=== PATIENT | female | born 1995 | race African-American/Black ===

== ENCOUNTER 2020-05-29 10:17 | Emergency (ER) | payer OTHER, SELFPAY ==
--- NOTE | 2020-05-29 10:28 | ED.URI ---
HPI - URI/Sore Throat General Chief Complaint: Upper Respiratory Infection Stated Complaint: Earache/sore throat Time Seen by Provider: 05/29/20 10:28 Source: patient and RN notes reviewed Mode of arrival: ambulatory Limitations: no limitations History of Present Illness HPI Narrative: 25-year-old female presents with concern for sore throat, bilateral ear pain for 4 days. She reports body aches, denies fever, chills, sweats, headache, cough, shortness of breath, rhinorrhea, postnasal drainage. Reports her sister had strep throat 2 weeks ago, she does not live with her sister. Reports she has been taking TheraFlu and NyQuil with little relief MD elicited complaint: sore throat Related Data Allergies Allergy/AdvReac Type Severity Reaction Status Date / Time No Known Allergies Allergy Verified 05/29/20 10:28 Review of Systems Review of Systems: Narrative: CONSTITUTIONAL: Denies malaise, chills, sweats, or fever. EYES: Denies visual changes, redness, or discharge. ENT: Denies any rhinorrhea, congestion, sinus pain. Reports otalgia and sore throat. CARDIOVASCULAR: Denies chest pain, palpitations, or edema. RESPIRATORY: Denies cough or dyspnea. GASTROINTESTINAL: Denies abdominal pain, nausea, vomiting, diarrhea SKIN: Denies rash or itching. MUSCULOSKELETAL: Reports myalgia. NEUROLOGIC: Denies headache. All systems reviewed & are unremarkable except as noted in HPI and below PMFSH Comments At time of signature, agree with nursing past medical, surgical, social and family history. There is no relevant family history pertinent to the presenting complaint Exam Narrative: Exam Narrative: GENERAL: Well-appearing, well-nourished, and in no acute distress. HEAD: Normocephalic EYES: PERRLA, conjunctivae clear ENT: Nares clear, turbinates pink, no discharge. Mucous membranes moist. TM pearly barrios with sharp light reflex bilaterally; no tragal tenderness. Oropharynx erythematous without lesions. Tonsils enlarged and without exudate, no drooling, no hoarseness, no trismus, uvula midline. NECK: Supple. No lymphadenopathy CHEST: Clear to auscultation, breath sounds equal. No wheezing, rhonchi, rales, or stridor. No respiratory distress, speaks in full sentences. HEART: Regular rate and rhythm. No murmur heard. SKIN: Warm, dry, no rash. NEURO: Alert and oriented x3. PSYCH: Normal mood and affect Course Course Emergency Course: Patient is aware of diagnosis, understands and agrees to treatment plan. Anticipatory guidance given. Patient agrees to follow-up as directed and is aware of reasons to seek care at the emergency department. Portions of this record may have been created with voice recognition software Vital Signs Vital signs: Vital Signs Temperature 96.9 F L 05/29/20 10:30 Pulse Rate 93 05/29/20 10:30 Respiratory Rate 20 05/29/20 10:30 Blood Pressure 163/94 H 05/29/20 10:30 Pulse Oximetry 99 05/29/20 10:30 Temperature 96.9 F L 05/29/20 10:30 Pulse Rate 93 05/29/20 10:30 Respiratory Rate 20 05/29/20 10:30 Blood Pressure 163/94 H 05/29/20 10:30 Pulse Oximetry 99 05/29/20 10:30 Reviewed. Patient has been instructed to follow up with her primary care provider within the next week regarding her elevated blood pressure today. MDM - URI/Sore Throat MDM Narrative Medical decision making narrative: Differential diagnosis considered: Colon virus, strep pharyngitis, allergic rhinitis, upper respiratory tract infection, sinusitis, rhinosinusitis, nasopharyngitis. viral pharyngitis, otitis media, otitis externa, pneumonia, bronchitis, viral cough syndrome, viral syndrome, and influenza. Exam findings show no acute concerns or changes; patient is non-toxic appearing and is in no distress. Patient is appropriate for outpatient treatment and follow-up. Lab Data Attestation: I reviewed the patient's lab results. Labs: Strep Screen Presumptive Negative *(Referenc
[2020-05-29 10:30] VITALS: BP 163/94; PULSE 93; RESP 20; TEMP 36.1; O2SAT 99
== END 2020-05-29 10:51 | disposition home or self-care (01) ==
PROVIDERS: Emergency Provider Nurse Practitioner
DX: J02.0 Streptococcal pharyngitis (principal)
CPT/HCPCS: 87077; 87081; 87635; 87880; 99213; C9803; G0463; U0003

== ENCOUNTER 2020-05-29 10:50 | Outpatient (NON) | payer OTHER, SELFPAY ==
[2020-05-31 00:27] LABS: SARS-CoV-2 RNA PCR Negative
== END 2020-05-29 10:51 ==
LOC: ANHCOVIDDT 10:51
PROVIDERS: Visit Provider Nurse Practitioner
DX: J02.9 Acute pharyngitis, unspecified (principal); Z20.828 Contact with and (suspected) exposure to other viral communicable diseases
CPT/HCPCS: 87635; C9803; U0003

== ENCOUNTER 2021-04-19 08:27 | Emergency (ER) | payer OTHER, SELFPAY ==
--- NOTE | ~2021-04-19 | XR_ITS ---
EXAMINATION: XR shoulder RT min 2V EXAM DATE: 04/19/2021 09:14 INDICATION: Fell out of chair 2 days ago ttp anterior aspect. Initial encounter. TECHNIQUE: The following right shoulder projections obtained: frontal projection with internal rotati on, frontal projection with external rotation, Grashey, and scapular Y view (4+ views). There is no prior study for comparison. FINDINGS: No evidence of right shoulder rotator cuff calcific tendinosis. Unremarkable right liz ohumeral and acromioclavicular joints. There are no acute fractures or dislocations identified. Ther e is no subcutaneous gas. The soft tissue is unremarkable. There are no radiopaque foreign bodies. IMPRESSION: 1. Right shoulder exam without acute osseous findings. Reviewed, dictated and finalized at location A.
--- NOTE | ~2021-04-19 | XR_ITS ---
EXAMINATION: XR elbow RT min 3V EXAM DATE: 04/19/2021 09:14 INDICATION: fall out of chair 2 days ago ttp on ulnar aspect. Initial encounter. TECHNIQUE: Right elbow frontal, lateral with flexion, and oblique projections obtained and reviewed. There is no prior study for comparison. FINDINGS: Right elbow anterior humeral line intact. There are no acute fractures or dislocations coral ntified. There is no subcutaneous gas. The soft tissue is unremarkable. There are no radiopaque f oreign bodies. IMPRESSION: 1. Right elbow exam without acute osseous findings. Reviewed, dictated and finalized at location A.
[2021-04-19 08:42] VITALS: BP 117/78; PULSE 80; RESP 18; TEMP 36.8; O2SAT 100
--- NOTE | 2021-04-19 09:21 | WC.ED.TRAUMA ---
HPI - Trauma General Chief Complaint: Extremity Injury, Upper Stated Complaint: right arm pain Time Seen by Provider: 04/19/21 08:39 Source: patient History of Present Illness HPI narrative: Patient reports she fell of her chair approximately 2 days ago onto her right arm. She had mild pain in her forearm but just monitor her symptoms. Yesterday she went bowling and now she is having pain radiating up her arm she was concerned so came to the ER for evaluation. Her pain is described as a stretching sensation is primarily starts in her forearm and radiates up into her shoulder. She denies any numbness or tingling. She denies any swelling or erythema. Her pain does worsen when she utilizes her elbow or right shoulder. Related Data Allergies Allergy/AdvReac Type Severity Reaction Status Date / Time No Known Allergies Allergy Verified 04/19/21 08:46 Review of Systems Review of Systems: CONSTITUTIONAL: Denies fever, chills, or sweats. EYES: Denies visual changes, redness, or discharge. ENT: Denies rhinorrhea, congestion, sore throat, or otalgia. CARDIOVASCULAR: Denies chest pain, palpitations, or edema. RESPIRATORY: Denies cough or dyspnea. GASTROINTESTINAL: Denies abdominal pain, nausea, vomiting, or diarrhea. GENITOURINARY: Denies dysuria or hematuria. SKIN: Denies rash or itching. MUSCULOSKELETAL: Denies back pain, joint pain, or myalgia. NEUROLOGIC: Denies headache, numbness, dizziness, or weakness. PSYCHIATRIC: Denies anxiety or depression. All systems reviewed & are unremarkable except as noted in HPI and below PMFSH Past Medical History Medical History (Updated 04/19/21 @ 09:32 by Rachid Pierre MD) Patient denies significant medical history Social History Social History (Updated 04/19/21 @ 09:22 by Rachid Pierre MD) Alcohol intake: current Exam Narrative: GENERAL: Well-appearing, well-nourished, and in no acute distress. HEAD: Normocephalic, atraumatic. EYES: PERRLA and EOMI. ENT: Nares clear, no rhinorrhea or epistaxis. Mucous membranes moist. NECK: Supple. No masses. No JVD EXTREMITIES: Normal range of motion. No edema. Mild tenderness noted on the anterior aspect of the shoulder no focal bony tenderness no obvious deformity no specific tenderness at the AC joint there is also mild tenderness on the ulnar aspect of the right elbow again no edema no erythema no obvious deformity no focal bony tenderness. Pain is primarily on the biceps tendon SKIN: Warm, dry, no rash. NEURO: No focal deficits. Alert and oriented x3. PSYCH: Normal mood and affect. Course Vital Signs Vital signs: Vital Signs Temperature 36.8 C 04/19/21 08:42 Pulse Rate 80 04/19/21 08:42 Respiratory Rate 18 04/19/21 08:42 Blood Pressure 117/78 04/19/21 08:42 Pulse Oximetry 100 04/19/21 08:42 Temperature 36.8 C 04/19/21 08:42 Pulse Rate 80 04/19/21 08:42 Respiratory Rate 18 04/19/21 08:42 Blood Pressure 117/78 04/19/21 08:42 Pulse Oximetry 100 04/19/21 08:42 MDM - Trauma MDM Narrative Medical decision making narrative: H&P as above, vss, pt looks clinically well, exam without neurovascular compromise, imaging clinically unremarkable, additional labs/img considered, symptomatic relief available as needed, on reevaluation pt continues to looks clinically well. Suspect soft tissue strain, dns fracture, dislocation, major neurovascular compromise. plan to tx/monitor as op w/ pcm f/u findings/plan discussed with pt, pt agree/comfortable with plan, return precautions given Imaging Data Radiologist's impression: Impressions Elbow X-Ray 04/19/21 09:18 IMPRESSION: 1. Right elbow exam without acute osseous findings. Shoulder X-Ray 04/19/21 09:21 IMPRESSION: 1. Right shoulder exam without acute osseous findings. Discharge Plan Discharge Clinical Impression: Biceps muscle strain Qualifiers: Encounter type: initial encounter Laterality: right Qualified Code(
== END 2021-04-19 09:53 | disposition home or self-care (01) ==
PROVIDERS: Emergency Provider Emergency Medicine
DX: S46.211A Strain of muscle, fascia and tendon of other parts of biceps, right arm, initial encounter (principal); Y93.54 Activity, bowling; X50.9XXA Other and unspecified overexertion or strenuous movements or postures, initial encounter
CPT/HCPCS: 73030; 73080; 99283; A4565

== ENCOUNTER 2021-05-23 15:48 | Outpatient (CLI) | payer OTHER, SELFPAY ==
--- NOTE | ~2021-05-23 | US_ITS ---
EXAMINATION: US thyroid DATE: 05/23/2021 16:23 INDICATION: Nontoxic goiter. TECHNIQUE: Multiple ultrasound images of the thyroid were obtained. COMPARISON: None. FINDINGS: The right thyroid lobe measures 6.6 x 1.7 x 2.0 cm. The left thyroid lobe measures 6.0 x 1.5 x 2.1 c m. There is normal echotexture and echogenicity throughout the thyroid gland. No discrete nodules id entified. Normal vascular flow is present. IMPRESSION: 1. Normal thyroid. Reviewed, dictated and finalized at location A. E ATTENDANT IMPRESSION: 1. Normal thyroid.
== END 2021-05-23 15:49 | disposition home or self-care (01) ==
LOC: ANHIMG 15:52
PROVIDERS: PCP Physician Assistant; Visit Provider Physician Assistant
DX: E04.9 Nontoxic goiter, unspecified (principal)
CPT/HCPCS: 76536

== ENCOUNTER 2021-09-12 10:48 | Observation (INO) | payer OTHER, SELFPAY ==
--- NOTE | 2021-09-12 10:48 | OBADM ---
This patient, Natan Milan, admitted to the OB room OB Post 116 for observation. Patient/family oriented to hospital policies and general routines including ID bracelet, bed and alarms, visiting hours, pain management, procedures, bathroom and other care routines, personal items, smoking policy, room service/diet, and visiting hours. Patient/Family are encouraged to report perceived risks to care and to ask questions if they do not understand what they are told or what they should do.
[2021-09-12 11:10] VITALS: RESP 18; TEMP 36.6
[2021-09-12 11:11] VITALS: BP 131/75; PULSE 99
[2021-09-12 11:15] VITALS: BMI 40.2
[2021-09-12 11:31] VITALS: BP 97/57; PULSE 93
[2021-09-12 11:40] LABS: Add Urine Microscopic? YES; Appearance Urine Clear (Clear); Bilirubin Urine Negative (Negative); Blood Urine Negative (Negative); Color Urine Straw (Yellow); Glucose Urine UA Negative (Negative); Ketones Urine Negative (Negative); Leukocyte Esterase Ur Trace LEU/UL (Negative); Nitrate Urine Negative (Negative); Protein Urine Negative (Negative); RBC Urine 0-2 /hpf (0-2); Specific Grav Ur 1.011 (1.001-1.035); Squamous Epithelial Cell Urine Rare /hpf (Few); Urobilinogen Urine Negative mg/dL (<2.0); WBC Urine 0-3 /hpf
--- NOTE | 2021-10-07 10:18 | PM.OBTRLD ---
OB - Triage/Final Diagnosis Visit Information Comments/Additional reasons for admission: I have assessed the risk for this patient, Natan Milan, and determined that she would benefit from observation care. Evaluation Laboratory results: Laboratory Tests 09/12/21 11:25 Urine Color Straw Urine Appearance Clear Urine pH 7.0 Ur Specific [place] 1.011 Urine Protein Negative Urine Glucose (UA) Negative Urine Ketones Negative Ur Blood (Man) Negative Urine Nitrate Negative Urine Bilirubin Negative Urine Urobilinogen Negative Leukocyte Esterase Rfl Trace H Urine RBC 0-2 Urine WBC 0-3 Ur Squamous Epith Cells Rare Final Diagnosis (1) Spotting: Code(s): N92.0 - Excessive and frequent menstruation with regular cycle Status: Acute
== END 2021-09-12 12:02 | disposition home or self-care (01) ==
PROVIDERS: Admitting Provider Obstetrics & Gynecology; PCP Physician Assistant; Visit Provider Obstetrics & Gynecology
DX: O26.852 Spotting complicating pregnancy, second trimester (principal); Z3A.21 21 weeks gestation of pregnancy
CPT/HCPCS: 81001; G0378; G0379

== ENCOUNTER 2021-10-28 12:42 | Observation (INO) | payer OTHER, SELFPAY ==
[2021-10-28 13:01] VITALS: BP 133/76; PULSE 98
[2021-10-28 13:02] VITALS: TEMP 36.4; BMI 40.3
--- NOTE | 2021-10-28 13:02 | OBADM ---
This patient, Natan Milan, admitted to the OB room 112 for observation for possible contractions due to shortened cervical length. Patient/family oriented to hospital policies and general routines including ID bracelet, bed and alarms, visiting hours, pain management, procedures, bathroom and other care routines, personal items, smoking policy, room service/diet, and visiting hours. Patient/Family are encouraged to report perceived risks to care and to ask questions if they do not understand what they are told or what they should do.
[2021-10-28 14:01] VITALS: BP 122/77; PULSE 86
[2021-10-28] MEDS: BETAMETHASONE SOD PHOS/ACETATE 30 MG/5 ML VIAL 12 MG IM (14:08)
[2021-10-28 15:01] VITALS: BP 133/63; PULSE 90
--- NOTE | 2021-10-28 15:29 | PC.NURSE ---
Dr. Quintanilla informed pt has only had 1 contraction with possibly 1-2 instances of uterine irritability. FHT's reactive and [place] was given. Order received to repeat SVE and may discharge to home on pelvic rest, to be seen in office next week, and office has scheduled an appointment with M for pt and office will be calling her to inform her of the appointment.
--- NOTE | 2021-11-04 07:43 | PM.OBTRLD ---
OB - Triage/Final Diagnosis Visit Information Comments/Additional reasons for admission: I have assessed the risk for this patient, Natan Milan, and determined that she would benefit from observation care. Final Diagnosis (1) Cervical shortening affecting : Code(s): O26.879 - Cervical shortening, unspecified trimester Status: Acute
== END 2021-10-28 17:03 | disposition home or self-care (01) ==
PROVIDERS: Admitting Provider Obstetrics & Gynecology; PCP Physician Assistant; Visit Provider Obstetrics & Gynecology
DX: O26.879 Cervical shortening, unspecified trimester (principal); Z3A.00 Weeks of gestation of pregnancy not specified
CPT/HCPCS: 96372; G0378; G0379; J0702

== ENCOUNTER 2021-10-29 13:56 | Outpatient (CLI) | payer OTHER, SELFPAY ==
[2021-10-29] MEDS: BETAMETHASONE SOD PHOS/ACETATE 30 MG/5 ML VIAL 12 MG IM (14:18)
== END 2021-10-29 13:57 | disposition home or self-care (01) ==
LOC: ANHOBOP 14:06
PROVIDERS: PCP Physician Assistant; Visit Provider Obstetrics & Gynecology
DX: O36.0990 Maternal care for other rhesus isoimmunization, unspecified trimester, not applicable or unspecified (principal); Z3A.00 Weeks of gestation of pregnancy not specified
CPT/HCPCS: 96372; J0702

== ENCOUNTER 2021-11-04 13:13 | Outpatient (NON) | payer OTHER, SELFPAY ==
[2021-11-04 14:29] LABS: Fetal Fibronectin Positive
== END 2021-11-04 13:14 | disposition home or self-care (01) ==
LOC: ANHLAB 13:15
PROVIDERS: PCP Physician Assistant; Visit Provider Obstetrics & Gynecology
DX: O26.879 Cervical shortening, unspecified trimester (principal); Z3A.00 Weeks of gestation of pregnancy not specified
CPT/HCPCS: 82731

== ENCOUNTER 2021-11-11 08:43 | Observation (INO) | payer OTHER, SELFPAY ==
[2021-11-11 08:46] VITALS: BP 146/74; PULSE 110; RESP 18; TEMP 36.4; O2SAT 100
--- NOTE | 2021-11-11 09:23 | ED.BACK ---
HPI - Back Pain/Injury General Chief Complaint: Fall Stated Complaint: fall Time Seen by Provider: 11/11/21 08:46 History of Present Illness HPI Narrative: 26-year-old 30-weeks female presents to the emergency room for evaluation of lower back pain following a fall yesterday. Patient states that she was walking in the grass, when she slipped and fell landing on her left glute. Patient was ambulatory following the event. On presentation to the ER, patient is complaining of right lower back pain that is worse with rotational and lateral movement. Denies any radicular symptoms. No changes to bowel or bladder habits. Denies abdominal pain, and denies vaginal bleeding. Related Data Home Medications Medication Instructions Recorded Confirmed calcium carbonate 200 mg calcium 200 mg PO QID PRN Heartburn 10/28/21 10/28/21 (500 mg) chewable tablet (Tums) vit no.95-ferrous 1 tablet PO DAILY 10/28/21 10/28/21 fumarate 28 mg-folic acid 800 mcg tablet () Allergies Allergy/AdvReac Type Severity Reaction Status Date / Time No Known Allergies Allergy Verified 09/12/21 11:52 Review of Systems Review of Systems: CONSTITUTIONAL: Denies fever, chills, or sweats. EYES: Denies visual changes, redness, or discharge. ENT: Denies rhinorrhea, congestion, sore throat, or otalgia. CARDIOVASCULAR: Denies chest pain, palpitations, or edema. RESPIRATORY: Denies cough or dyspnea. GASTROINTESTINAL: Denies abdominal pain, nausea, vomiting, or diarrhea. GENITOURINARY: Denies dysuria or hematuria. SKIN: Denies rash or itching. MUSCULOSKELETAL: Reports low back pain NEUROLOGIC: Denies headache, numbness, dizziness, or weakness. PSYCHIATRIC: Denies anxiety or depression. PMFSH Past Medical History Medical History Patient denies significant medical history Social History Social History Alcohol intake: current Exam Narrative: GENERAL: Well-appearing, well-nourished, and in no acute distress. HEAD: Normocephalic, atraumatic. EYES: PERRLA and EOMI. CHEST: Clear to auscultation. No respiratory distress. No wheezes rales or rhonchi HEART: Regular rate and rhythm. No murmur heard. Normal peripheral pulses. ABDOMEN: Soft, nontender, parous, normal active bowel sounds. EXTREMITIES: Normal range of motion. No edema. BACK: Tenderness to right thoracolumbar fascia; no midline bony abnormality, no step-offs, full range of motion with rotation and lateral bend bilaterally SKIN: Warm, dry, no rash. NEURO: No focal deficits. Alert and oriented x3. PSYCH: Normal mood and affect. Course Course Emergency Course: 934: Discussed case with Dr. Quintanilla. She recommends a short course of Flexeril, and discharged to OB for NST monitoring. Vital Signs Vital signs: Vital Signs Temperature 36.4 C 11/11/21 08:46 Pulse Rate 110 H 11/11/21 08:46 Respiratory Rate 18 11/11/21 08:46 Blood Pressure 146/74 H 11/11/21 08:46 Pulse Oximetry 100 11/11/21 08:46 Oxygen Delivery Room Air 11/11/21 08:46 Temperature 36.4 C 11/11/21 08:46 Pulse Rate 110 H 11/11/21 08:46 Respiratory Rate 18 11/11/21 08:46 Blood Pressure 146/74 H 11/11/21 08:46 Pulse Oximetry 100 11/11/21 08:46 Oxygen Delivery Room Air 11/11/21 08:46 Discharge Plan Discharge Clinical Impression: Acute lumbar myofascial strain Patient Disposition: Home, Self-Care Condition: Stable Instructions: Antibiotic Form, Muscle Strain (ED) Additional Instructions: Go directly to [facility] for heart monitoring following ER discharge. May take Flexeril as needed for muscle spasms. Tylenol as needed for pain. Prescriptions: New cyclobenzaprine 10 mg tablet 10 mg PO TID Qty: 15 0RF No Action calcium carbonate [Tums] 200 mg calcium (500 mg) Tablet,Chewable 200 mg PO QID PRN (Reason: Heartburn) PN
[2021-11-11 10:17] VITALS: BP 117/68; PULSE 96
[2021-11-11 10:30] VITALS: BP 114/71; PULSE 92
[2021-11-11 10:45] VITALS: BP 121/70; PULSE 102
[2021-11-11 11:10] VITALS: BMI 39.6
--- NOTE | 2021-11-11 11:11 | OBADM ---
This patient, Natan Milan, admitted to the OB room Labor/Delivery/Recovery 118 from the ED for observation for NST for post fall evaluation. Patient/family oriented to hospital policies and general routines including ID bracelet, bed and alarms, visiting hours, pain management, procedures, bathroom and other care routines, personal items, smoking policy, room service/diet, and visiting hours. Patient/Family are encouraged to report perceived risks to care and to ask questions if they do not understand what they are told or what they should do.
--- NOTE | 2021-11-11 11:23 | PC.NURSE ---
Dr. Quintanilla informed of reactive NST at 30 2/7 wks with 10 and 15 beat accels. No contractions. states pt is Rh positive. OK to discharge to home.
[2021-11-11 11:29] VITALS: BP 121/70; PULSE 102
--- NOTE | 2021-11-18 07:27 | PM.OBTRLD ---
OB - Triage/Final Diagnosis Visit Information Comments/Additional reasons for admission: I have assessed the risk for this patient, Natan Lay Bjorn, and determined that she would benefit from observation care. Final Diagnosis (1) Acute lumbar myofascial strain: Code(s): S39.012A - Strain of muscle, fascia and tendon of lower back, initial encounter Status: Acute
== END 2021-11-11 11:41 | disposition home or self-care (01) ==
LOC: ANHED 09:40 → ANHLDR 10:19
PROVIDERS: Admitting Provider Obstetrics & Gynecology; Emergency Provider Nurse Practitioner Family; Visit Provider Obstetrics & Gynecology
DX: O9A.213 Injury, poisoning and certain other consequences of external causes complicating pregnancy, third trimester (principal); M54.50 Low back pain, unspecified; W18.30XA Fall on same level, unspecified, initial encounter; Z3A.30 30 weeks gestation of pregnancy
CPT/HCPCS: 59025; 99285; G0378; G0379

== ENCOUNTER 2021-11-28 16:35 | Observation (INO) | payer OTHER, SELFPAY ==
[2021-11-28 17:00] VITALS: BMI 41.2
--- NOTE | 2021-11-28 17:03 | OBADM ---
This patient, Natan Milan, admitted to the OB room 116 for observation. Patient/family oriented to hospital policies and general routines including ID bracelet, bed and alarms, visiting hours, pain management, procedures, bathroom and other care routines, personal items, smoking policy, room service/diet, and visiting hours. Patient/Family are encouraged to report perceived risks to care and to ask questions if they do not understand what they are told or what they should do.
[2021-11-28 17:10] VITALS: BP 117/82; PULSE 107
[2021-11-28 17:16] VITALS: BP 107/70; PULSE 121
[2021-11-28 17:19] LABS: Appearance Urine Clear (Clear); Bilirubin Urine Negative (Negative); Blood Urine Negative (Negative); Color Urine Yellow (Yellow); Glucose Urine UA Negative (Negative); Ketones Urine Negative (Negative); Leukocyte Esterase Ur Trace LEU/UL (Negative); Nitrate Urine Negative (Negative); Protein Urine Negative (Negative); Urobilinogen Urine 0.2 mg/dL (<2.0); pH Urine 5.5 (5.0-9.0)
[2021-11-28 17:26] VITALS: TEMP 35.9
[2021-11-28 17:31] VITALS: BP 119/77; PULSE 112
[2021-11-28 17:31] LABS: Add Urine Microscopic? YES; RBC Urine 0-2 /hpf (0-2); Squamous Epithelial Cell Urine Occasional /hpf (Few); WBC Urine 0-3 /hpf
[2021-11-28] MEDS: NIFEdipine 30 MG TAB.ER.24 PO (17:40)
[2021-11-28 18:01] VITALS: BP 122/70; PULSE 102
[2021-11-28 18:34] LABS: Fetal Fibronectin Positive
--- NOTE | 2021-12-03 07:30 | P.PNOB_ITS ---
OB - Triage/Final Diagnosis Visit Information Date of evaluation: 11/28/21 Reason for evaluation: threatened labor Comments/Additional reasons for admission: I have assessed the risk for this patient, Natan Lay Bjorn, and determined that she would benefit from observation care. Evaluation Laboratory results: Laboratory Tests 11/28/21 11/28/21 17:10 17:53 Urine Color Yellow Urine Appearance Clear Urine pH 5.5 Ur Specific [place] 1.020 Urine Protein Negative Urine Glucose (UA) Negative Urine Ketones Negative Ur Blood (Man) Negative Urine Nitrate Negative Urine Bilirubin Negative Urine Urobilinogen 0.2 Leukocyte Esterase Rfl Trace H Urine RBC 0-2 Urine WBC 0-3 Ur Squamous Epith Cells Occasional Fibronectin Positive
== END 2021-11-28 20:05 | disposition home or self-care (01) ==
PROVIDERS: Advanced Practice Midwife; Admitting Provider Obstetrics & Gynecology; Visit Provider Obstetrics & Gynecology
DX: O47.03 False labor before 37 completed weeks of gestation, third trimester (principal); Z3A.32 32 weeks gestation of pregnancy
CPT/HCPCS: 81001; 82731; A9270; G0378; G0379

== ENCOUNTER 2021-12-07 01:28 | Observation (INO) | payer OTHER, SELFPAY ==
[2021-12-07 01:45] VITALS: BP 123/75; PULSE 102
[2021-12-07 02:00] VITALS: BP 116/72; PULSE 115
[2021-12-07 02:15] VITALS: BP 122/70; PULSE 99
--- NOTE | 2021-12-16 06:49 | PM.OBTRLD ---
OB - Triage/Final Diagnosis Visit Information Comments/Additional reasons for admission: I have assessed the risk for this patient, Natan Milan, and determined that she would benefit from observation care. Final Diagnosis (1) False labor: Code(s): O47.9 - False labor, unspecified Status: Acute
== END 2021-12-07 02:30 | disposition home or self-care (01) ==
LOC: ANHOBOP 01:36 → ANHLDR 01:40
PROVIDERS: Admitting Provider Obstetrics & Gynecology; Visit Provider Obstetrics & Gynecology
DX: O47.9 False labor, unspecified (principal); Z3A.00 Weeks of gestation of pregnancy not specified
CPT/HCPCS: 59025; G0378; G0379

== ENCOUNTER 2022-01-11 01:52 | Inpatient (IN) | payer OTHER, SELFPAY ==
[2022-01-11] VITALS (21 sets, daily range): BP systolic 109–163; BP diastolic 44–126; PULSE 73–141; RESP 16–18; TEMP 36.2–36.9; O2SAT 99–100; BMI 42.5
--- NOTE | 2022-01-11 01:52 | LDADM ---
This patient, Natan Milan, was admitted to Labor/Delivery/Recovery 105 on 01/11/22 at 01:52. Plans for labor, pain management and were discussed with patient. Patient/family oriented to hospital policies and general routines including ID bracelet, bed and alarms, visiting hours, pain management, procedures, bathroom and other care routines, personal items, smoking policy, room service/diet and guest tray routines, infant security routines, and visiting hours. Patient/Family are encouraged to report perceived risks to care and to ask questions if they do not understand what they are told or what they should do. See OBIX for further documentation.
--- OUTSIDE RECORDS SUMMARY | 2022-01-11 02:00 | XMS_ITS | Encounter Summary ---
:1995 Author Care Team Providers Name Role Phone Xavi Sears Primary Care Provider [phone] Reason for Visit None recorded. Assessment and Plan 1. Maternal obesity complicating pregna ncy, childbirth and the puerperium, antepartum ? non-stress test Discussion Note: None recorded.Patient educational handouts: No information available. Plan of Care Reminders Provider Appointments Nst 01/12/2022 10:00AM Nst, , EQUI P ? U/S OB BPP 01/12/2022 10:30AM Ultrasound, TECH ? Induction 01/12/2022 6:00AM Nahid Rivera MD Lab None recorded. ? ? Referral None recorded. ? ? Procedures None recorded. ? ? Surgeries None recorded. ? ? Imaging Non-stress Test 12/29/2021 [place] Medications Name Start Date ? ? cyclobenzaprine 10 mg tablet ? TAKE 1 TABLET BY MOUTH THREE TIMES DAILY nifedipine ER 30 mg tablet,extended release 24 hr ? TAKE 1 TABLET BY MOUTH ONCE DAILY ondansetron 8 mg disintegrating tablet ? Place 1 tablet twice a day by translingual route. valacyclovir 500 mg tablet 06/17/2021 Medications Administered None recorded. Vitals None recorded. Results Lab Results None recorded. Allergies Code Code System Name Reaction Severity Onset NKDA ? ? ? Problems Name Status Onset Date Source ? Active 07/17/2021 ? Herpes Simplex Active ? ? Body Mass Index 30+ - Obesity Active ? ? Uterine Size for Dates Discrepancy Active ? ? Short Cervical Length in Active ? ?
--- OUTSIDE RECORDS SUMMARY | 2022-01-11 02:00 | XMS_ITS | Encounter Summary ---
:1995 Author Care Team Providers Name Role Phone Xavi Sears Primary Care Provider [phone] Reason for Visit None recorded. Assessment and Plan 1. Short cervical length in 2. Routine care Discussion Note: None recorded.Patient educational handouts: No information available. Plan of Care Reminders Provider Appointments Nst 01/12/2022 10:00AM Nst, , EQUI P ? U/S OB BPP 01/12/2022 10:30AM Ultrasound, TECH ? Induction 01/12/2022 6:00AM Nahid Rivera MD Lab None recorded. ? ? Referral None recorded. ? ? Procedures None recorded. ? ? Surgeries None recorded. ? ? Imaging None recorded. ? ? Medications Name Start Date ? ? cyclobenzaprine 10 mg tablet ? TAKE 1 TABLET BY MOUTH THREE TIMES DAILY nifedipine ER 30 mg tablet,extended release 24 hr ? TAKE 1 TABLET BY MOUTH ONCE DAILY ondansetron 8 mg disintegrating tablet ? Place 1 tablet twice a day by translingual route. valacyclovir 500 mg tablet 06/17/2021 Medications Administered None recorded. Vitals Height Weight BMI Blood Pressure 5 ft 7 in 254 lbs 39.8 kg/m2 125/82 mm[Hg] Results Lab Results None recorded. Allergies Code Code System Name Reaction Severity Onset NKDA ? ? ? Problems Name Status Onset Date Source ? Active 07/17/2021 ? Herpes Simplex Active ? ? Body Mass Index 30+ - Obesity Active ? ? Uterine Size for Dates Discrepancy Active ? ? Short C
--- OUTSIDE RECORDS SUMMARY | 2022-01-11 02:00 | XMS_ITS | Encounter Summary ---
:1995 Author Care Team Providers Name Role Phone Xavi Sears Primary Care Provider [phone] Reason for Visit None recorded. Assessment and Plan 1. screening ? US, obstetric, follow-up Discussion Note: None recorded.Patient educational handouts: No information available. Plan of Care Reminders Provider Appointments Nst 01/12/2022 Nst, , EQUIP 10:00AM ? U/S OB BPP 01/12/2022 Ultrasound, [facility] 10:30AM ? Induction 01/12/2022 Nahid husain MD 6:00AM Lab None recorded. ? ? Referral None recorded. ? ? Procedures None recorded. ? ? Surgeries None recorded. ? ? Imaging US, Obstetric, Follow-up 10/28/2021 [place] Medications Name Start Date ? ? cyclobenzaprine [...]
--- OUTSIDE RECORDS SUMMARY | 2022-01-11 02:00 | XMS_ITS | Encounter Summary ---
:1995 Author Care Team Providers Name Role Phone Xavi Sears Primary Care Provider [phone] Reason for Visit None recorded. Assessment and Plan 1. Routine care Discussion Note: None recorded.Patient educational [...] BMI Blood Pressure 5 ft 7 in 280 lbs 43.9 kg/m2 134/83 mm[Hg] Results Lab Results None recorded. Allergies Code Code System Name Reaction Severity Onset NKDA ? ? ? Problems Name Status Onset Date Source ? Active 07/17/2021 ? Herpes Simplex Active ? ? Body Mass Index 30+ - Obesity Active ? ? Uterine Size for Dates Discrepancy Active ? ? Short Cervical Length in Active ? ? Proced
--- OUTSIDE RECORDS SUMMARY | 2022-01-11 02:00 | XMS_ITS | Encounter Summary ---
:1995 Author Care Team Providers Name Role Phone Xavi Sears Primary Care Provider [phone] Reason for Visit OB visit Assessment and Plan 1. Short cervical length [...] BMI Blood Pressure 5 ft 7 in 257 lbs 40.3 kg/m2 123/80 mm[Hg] Results Lab Results None recorded. Allergies Code Code System Name Reaction Severity Onset NKDA ? ? ? Problems Name Status Onset Date Source ? Active 07/17/2021 ? Herpes Simplex Active ? ? Body Mass Index 30+ - Obesity Active ? ? Uterine Size for Dates Discrepancy Active ? ? Short Cervica
--- OUTSIDE RECORDS SUMMARY | 2022-01-11 02:00 | XMS_ITS | Encounter Summary ---
:1995 Author Care Team Providers Name Role Phone Xavi Sears Primary Care Provider [phone] Reason for Visit None recorded. Assessment and Plan 1. Uterine size for dates discrepancy ? US, obstetric, follow-up Discussion Note: None [...] recorded. ? ? Imaging US, Obstetric, Follow-up 12/25/2021 Chandni landry Medications Name Start Date ? [...]
--- OUTSIDE RECORDS SUMMARY | 2022-01-11 02:00 | XMS_ITS | Encounter Summary ---
:1995 Author Care Team Providers Name Role Phone Xavi Sears Primary Care Provider [phone] Reason for Visit OB visit Assessment and Plan 1. Uterine size for dates discrepancy 2. Routine care Discussion Note: None recorded.Patient [...] BMI Blood Pressure 5 ft 7 in 270 lbs 42.3 kg/m2 119/77 mm[Hg] Results Lab Results None recorded. Allergies Code Code System Name Reaction Severity Onset NKDA ? ? ? Problems Name Status Onset Date Source ? Active 07/17/2021 ? Herpes Simplex Active ? ? Body Mass Index 30+ - Obesity Active ? ? Uterine Size for Dates Discrepancy Active ? ? Short Cervica
--- OUTSIDE RECORDS SUMMARY | 2022-01-11 02:00 | XMS_ITS | Encounter Summary ---
:1995 Author Care Team Providers Name Role Phone Xavi Sears Primary Care Provider [phone] Reason for Visit None recorded. Assessment and Plan 1. Abdominal pain in ? US, obstetric, biophysical profile + non-stress test Discussion Note: None recorded.Patient educational handouts: No information available. Plan of Care Reminders Provider Appointments Nst 01/12/2022 Nst, , EQU[facility] 10:00AM ? U/S OB BPP 01/12/2022 Ultrasound, [facility] H 10:30AM ? Induction 01/12/2022 Nahid husain MD 6:00AM Lab None recorded. ? ? Referral None recorded. ? ? Procedures None recorded. ? ? Surgeries None recorded. ? ? Imaging US, Obstetric, Biophysical 11/28/2021 [place] Profile + Non-stress Test Medications Name Start Date ? ? cyclobenzaprine [...]
--- OUTSIDE RECORDS SUMMARY | 2022-01-11 02:00 | XMS_ITS | Encounter Summary ---
:1995 Author Care Team Providers Name Role Phone Xavi Sears Primary Care Provider [phone] Reason for Visit None recorded. Assessment and Plan 1. Maternal obesity complicating pregna ncy, childbirth and the puerperium, antepartum ? US, obstetric, biophysical profile + non-stress [...] recorded. ? ? Imaging US, Obstetric, Biophysical 12/29/2021 [place] Profile + Non-stress Test Medications [...]
--- OUTSIDE RECORDS SUMMARY | 2022-01-11 02:00 | XMS_ITS | Encounter Summary ---
:1995 Author Care Team Providers Name Role Phone Xavi Sears Primary Care Provider [phone] Reason for Visit OB visit OB [id number] EDC 01/18/2022 LMP 04/07/2021 Assessment and Plan 1. Routine care Discussion [...] BMI Blood Pressure 5 ft 7 in 264 lbs 41.3 kg/m2 118/80 mm[Hg] Results Lab Results None recorded. Allergies Code Code System Name Reaction Severity Onset NKDA ? ? ? Problems Name Status Onset Date Source ? Active 07/17/2021 ? Herpes Simplex Active ? ? Body Mass Index 30+ - Obesity Active ? ? Uterine Size for Dates Discrepancy Active ? ? Short Cervica
--- OUTSIDE RECORDS SUMMARY | 2022-01-11 02:00 | XMS_ITS | Encounter Summary ---
:1995 Author Care Team Providers Name Role Phone Xavi Sears Primary Care Provider [phone] Reason for Visit None recorded. Assessment and [...] recorded. ? ? Imaging US, Obstetric, Biophysical 01/05/2022 [place] Profile + Non-stress Test Medications [...]
--- OUTSIDE RECORDS SUMMARY | 2022-01-11 02:00 | XMS_ITS | Encounter Summary ---
:1995 Author Care Team Providers Name Role Phone Xavi Sears Primary Care Provider [phone] Reason for Visit OB visit Assessment and Plan Assessment Note Patient is ___weeks . Discussed plan. 1. Routine care Discussion Note: None recorded.Patient [...] BMI Blood Pressure 5 ft 7 in 275 lbs 43.1 kg/m2 122/80 mm[Hg] Results Lab Results None recorded. Allergies Code Code System Name Reaction Severity Onset NKDA ? ? ? Problems Name Status Onset Date Source ? Active 07/17/2021 ? Herpes Simplex Active ? ? Body Mass Index 30+ - Obesity Active ? ? Uterine Size for
--- OUTSIDE RECORDS SUMMARY | 2022-01-11 02:00 | XMS_ITS | Encounter Summary ---
:1995 Author Care Team Providers Name Role Phone Xavi Sears Primary Care Provider [phone] Reason for Visit OB visit Assessment and [...] BMI Blood Pressure 5 ft 7 in 261 lbs 40.9 kg/m2 121/77 mm[Hg] Results Lab Results None recorded. Allergies Code Code System Name Reaction Severity Onset NKDA ? ? ? Problems Name Status Onset Date Source ? Active 07/17/2021 ? Herpes Simplex Active ? ? Body Mass Index 30+ - Obesity Active ? ? Uterine Size for
--- OUTSIDE RECORDS SUMMARY | 2022-01-11 02:00 | XMS_ITS ---
:1995 Author Care Team Providers Name Role Phone ALEK DEAN Primary Care Provider [phone] Allergies Code Code System Name Reaction Severity Status Onset NKDA ? Medications Name Status Start Date Stop Date ? ? cyclobenzaprine 10 mg tablet Active ? Not available TAKE 1 TABLET BY MOUTH THREE TIMES DAILY nifedipine ER 30 mg tablet,extended release 24 hr Active ? Not available TAKE 1 TABLET BY MOUTH ONCE DAILY ondansetron 8 mg disintegrating tablet Active ? Not available Place 1 tablet twice a day by translingual route. valacyclovir 500 mg tablet Active 06/17/2021 Not a vailable Problems Name Status Onset Date Source ? Active 07/17/2021 ? Herpes Simplex Active ? ? Body Mass Index 30+ - Obesity Active ? ? Uterine Size for Dates Discrepancy Active ? ? Short Cervical Length in Active ? ? Procedures Date Name Performed by ? 06/17/2021 US, Obstetric, Transvaginal [facility] [address] [place] [address] ([address]) 07/17/2021 US, Obstetric, Nuchal Translucency Chandni landry [address] [place] [address] ([address]) 09/04/2021 US, Obstetric, 2Nd or 3Rd Trimester Marilu king [address] [place] [address] ([address])
--- OUTSIDE RECORDS SUMMARY | 2022-01-11 02:00 | XMS_ITS | Encounter Summary ---
:1995 Author Care Team Providers Name Role Phone Xavi Sears Primary Care Provider [phone] Reason for Visit OB visit Assessment and Plan 1. Maternal obesity complicating pregna ncy, childbirth and the puerperium, antepartum Discussion Note: None recorded.Patient educational handouts: No [...] BMI Blood Pressure 5 ft 7 in 269 lbs 42.1 kg/m2 125/83 mm[Hg] Results Lab Results None recorded. Allergies Code Code System Name Reaction Severity Onset NKDA ? ? ? Problems Name Status Onset Date Source ? Active 07/17/2021 ? Herpes Simplex Active ? ? Body Mass Index 30+ - Obesity Active ? ? Uterine Size for Dates Discrepancy Active ? ?
--- OUTSIDE RECORDS SUMMARY | 2022-01-11 02:00 | XMS_ITS | Encounter Summary ---
:1995 Author Care Team Providers Name Role Phone Xavi Sears Primary Care Provider [phone] Reason for Visit None recorded. Assessment and [...] None recorded. ? ? Imaging Non-stress Test 01/05/2022 [place] Medications Name Start Date ? ? cyclobenzaprine [...]
[2022-01-11 02:29] LABS: Basophils Percent Auto 0.3 % (0.2-1.2); Eosinophils Absolute Auto 0.1 K/mm3 (0-0.3); Eosinophils Percent Auto 0.7 % (0-4.4); Hematocrit 31.4 % (37.0-47.0); Hemoglobin 9.5 g/dL (12.0-15.0); Immature Granulocyte Absolute 0.05 K/mm3 (0.00-0.031); Immature Granulocyte Percent A 0.5 % (0-0.5); Immature Platelet Fraction Pct 9.6 % (0.9-11.2); Lymphocytes Absolute Auto 2.33 K/mm3 (0.9-3.2); Lymphocytes Percent Auto 22.4 % (18.3-44.2); Mean Corpuscular HGB Conc 30.3 g/dl (32-36); Mean Corpuscular Hemoglobin 21.7 pg (26-34); Mean Corpuscular Volume 71.9 fl (80-100); Mean Platelet Volume 11.6 fl (7.4-10.4); Monocytes Absolute Auto 1.4 K/mm3 (0.1-0.6); Monocytes Percent Auto 13.7 % (2.6-8.5); Neutrophils Absolute Auto 6.5 K/mm3 (1.3-6.7); Neutrophils Percent Auto 62.4 % (45.5-73.1); Nucleated Red Blood Cells Perc 0.2 % (0.0-0.2); Platelet Count Result 209 k/mm3 (150-375); Red Blood Count 4.37 M/mm3 (4.2-5.4); Red Cell Distribution Width 18.3 % (11.5-14.5); White Blood Count 10.4 K/mm3 (4.5-10.0)
[2022-01-11 02:53] LABS: Platelet Estimate Adequate (Adequate)
[2022-01-11 02:54] LABS: Hypochromasia 1+ (NORMAL); Microcytosis 1+ (NORMAL)
[2022-01-11] MEDS: LIDOCAINE HCL 1% PF 30 ML VIAL (04:30)
[2022-01-11] MEDS: OXYTOCIN 30 UNITS/NS 500 ML 30 UNITS/500 ML BAG 999 UNITS IV CONT (04:32)
--- NOTE | 2022-01-11 04:47 | PM.OBPRVD ---
OB - Delivery Note Procedure Delivery date: 01/11/22 Procedure: Induction method: None Delivery monitor: External FHT and External Uterine Route of delivery: Episiotomy description: None Laceration Description: Perineal - 2nd Degree Delivery repair: vicryl Quantitative Blood Loss (ml): 210 Anesthesia type: Epidural Disposition: Floor Baby Date of : 01/11/22 Time of : 04:23 Weeks of gestation at delivery: 39 Weight (pounds): 7 Weight (ounces): 1 Placenta delivery description: Spontaneous Cord Vessel Description: 3 Vessels score one minute: 8 score five minutes: 9
[2022-01-11] MEDS: OXYTOCIN 30 UNITS/NS 500 ML 30 UNITS/500 ML BAG 125 UNITS IV CONT (05:15)
[2022-01-11] MEDS: IBUPROFEN 600 MG TABLET PO ×3 (05:15→19:11)
--- NOTE | 2022-01-11 07:08 | PC.NURSE ---
Patient transferred to post room #282 via wheelchair. Support person present. Oriented to unit, room, information board, rooming in, admission packet and security measures. Patient verbalizes understanding.
[2022-01-11] MEDS: POLYSACCHARIDE IRON COMPLEX 150 MG CAPSULE PO ×2 (09:16→16:22)
[2022-01-11] MEDS: MULTIVIT/MIN/PREN/FOL AC/IRON TABLET 1 TAB PO (09:16)
[2022-01-11] MEDS: CYCLOBENZAPRINE HCL 10 MG TABLET PO (16:22)
[2022-01-11] MEDS: DOCUSATE SODIUM 100 MG CAPSULE PO (16:22)
[2022-01-11] MEDS: ACETAMINOPHEN 325 MG TABLET 650 MG PO (23:31)
[2022-01-12] VITALS: BP 132/84; PULSE 112; RESP 20; TEMP 36.6; O2SAT 98
[2022-01-12 04:40] LABS: Hematocrit 25.9 % (37.0-47.0); Hemoglobin 7.9 g/dL (12.0-15.0)
[2022-01-12 04:42] VITALS: BP 129/83; PULSE 112; RESP 18; TEMP 36.6; O2SAT 99
[2022-01-12] MEDS: IBUPROFEN 600 MG TABLET PO ×3 (06:43→23:09)
[2022-01-12 07:30] VITALS: BP 120/68; PULSE 99; RESP 16; TEMP 36.4; O2SAT 100
--- NOTE | 2022-01-12 07:58 | PM.OBPNVD ---
OB - PN: Subj Subjective Date/time seen: 01/12/22 07:58 Patient comments: no complaints, pain well controlled, incisional pain, tolerating diet and flatus present OB - PN: Obj Data Labs CBC & Chem 7: 01/12/22 04:30 Labs: Laboratory Results - last 24 hr 01/12/22 04:30 Hgb 7.9 L Hct 25.9 L OB - PN A/P Plan day: 1 Plan: routine care Comments: No problems, routine care Time Spent With Patient Time: Total time spent is greater than 50% in coordination of care (as documented) at patient's floor/unit and/or counseling patient: Exam Const: General: comfortable, no acute distress and alert Resp: Effort & Inspection: normal respiratory effort Auscultation: no crackles, no rales and no rhonchi Cardio: Rate: regular rate Heart sounds: no click, no murmurs and no rubs GI: Inspection: non-distended GI Palp: No Tenderness to palpation present (GI) Auscultation: normal bowel sounds Other: Incision - CDI Extrem: General: normal to inspection, no pedal edema and no calf tenderness
[2022-01-12 09:26] LABS: Rapid Plasma Reagin Non-Reactive (NonReactive)
[2022-01-12] MEDS: POLYSACCHARIDE IRON COMPLEX 150 MG CAPSULE PO ×2 (09:38→16:14)
[2022-01-12] MEDS: MULTIVIT/MIN/PREN/FOL AC/IRON TABLET 1 TAB PO (09:38)
[2022-01-12] MEDS: DOCUSATE SODIUM 100 MG CAPSULE PO ×2 (09:38→16:14)
--- NOTE | 2022-01-12 09:55 | PC.NURSE ---
[id number] Introductions were made, then consulted with patient to assess needs related to . Mother led the conversation with her experience feeding her so far and consents to assistance. Mother works well with her infant and is attempting to latch her infant using a nipple shield with no support person present at this time. With encouragement and education we attempted to latch infant with a teacup hold without a nipple shield, with a nipple shield on both breast using football positioning. Mother has very large pendulous breast with smooth nipples. Infant opens wide and we visualize infant moving tongue over the gum line with the appearance of a tight lower frenulum. Encouraged understanding of the benefits of skin to skin (unwrapping infant and placing vertically on her chest), responsive feeding and how to watch for early feeding signs, frequency of feeding on demand about every 8-12 times in 24 hours (every 2-3 hours), milk production, duration of feeding, signs of adequate intake/output and how to record on the feeding sheet. Breast pump and nipple shield provided prior to shift due to ineffective feedings. Instructions given on cleaning, care, usage, that there should be no pain, pumping schedule for milk production, collection, and storage of human milk. Mother is encouraged to record pumping schedule on the feeding sheet. Patient was assessed for correct placement, flange size, to pump for comfort and nipple stretching/stimulation for adequate milk production every 3 hours (8 times in 24 hours). Minimal nipple stretching visualized. Mother voiced understanding of the education shared along with mom and baby guide for additional resource information. Reviewed positioning and ear, shoulder, hip alignment, supporting the breast, asymmetrical latch (off-center), and leading with the chin with a big open side gape. was unable to maintain latch. Nipple care reviewed with optimal latch and good positioning. Reminding mother of comfort measures of healing with a warm and wet washcloth to rinse breast, care and prevention of engorgement. Mother demonstrated hand expression, using the teacup hold to assist her infant to the breast, and using the electric pump for protecting the milk supply. Mother's preference is to pump and feed her the bottle. She bottle fed 10 mls to her using a bottle. Reviewed good handwashing when or touching the breast/nipples to prevent infection. Resources used to facilitate learning were used with the tool and the mom and baby guide. Mother voiced understanding of responsive feedings, stimulating with skin to skin, hand expressed colostrum, touch, talking to infant to encourage if it has been 2 -3 hours since the start of the last , to call if infant does not latch or there is discomfort with . Reported to the primary RN.
[2022-01-12] MEDS: ACETAMINOPHEN 325 MG TABLET 650 MG PO (19:38)
[2022-01-12 19:53] VITALS: BP 148/75; PULSE 105; RESP 18; TEMP 36.3; O2SAT 100
[2022-01-12] MEDS: WITCH HAZEL 40 PADS 1 PAD TOPICAL (23:10)
[2022-01-13] MEDS: ACETAMINOPHEN 325 MG TABLET 650 MG PO (03:40)
[2022-01-13 07:35] VITALS: BP 118/70; PULSE 106; RESP 18; TEMP 36.9; O2SAT 100
--- NOTE | 2022-01-13 07:57 | PM.OBPNVD ---
OB - PN: Subj Subjective Date/time seen: 01/13/22 07:57 Patient comments: no complaints, pain well controlled and tolerating diet OB - PN: Obj Data Labs CBC & Chem 7: 01/12/22 04:30 Labs: Laboratory Results - last 24 hr 01/11/22 02:22 RPR Non-reactive OB - PN A/P Plan day: 2 Plan: routine care and discharge home Time Spent With Patient Time: Total time spent is greater than 50% in coordination of care (as documented) at patient's floor/unit and/or counseling patient: Exam Const: General: comfortable and no acute distress Resp: Effort & Inspection: normal respiratory effort Auscultation: no rales, no rhonchi and no wheezes Cardio: Rate: regular rate Heart sounds: no click, no murmurs and no rubs GI: GI Palp: Yes Soft to palpation and No Tenderness to palpation present (GI) Auscultation: normal bowel sounds Extrem: General: normal to inspection, no pedal edema and no calf tenderness
--- NOTE | 2022-01-13 07:58 | P.DS_ITS ---
DS: Admitting Diagnosis Discharge Date 01/13/2022 Admitting Diagnosis labor, term OB - DS: Summary OB Procedures : None OB Procedures Intrapartum: Spontaneous Vag Delivery OB Procedures: : None Time Spent with Patient Time attestation: Total time spent providing and/or coordinating discharge services: DS: Data Data Completed and Pending Labs on day of discharge: Labs from last 24 hours 01/11/22 02:22 RPR Non-reactive Discharge Plan Discharge Discharging Clinician: Nick Rivera Patient Disposition: Home, Self-Care Activity: pelvic rest Diet: regular Patient Instructions: Antibiotic Form Stand Alone Forms: General Discharge Information Follow-up/Referrals: Nick Rivera MD [Physician] - Discharge Medications: Continued calcium carbonate [Tums] 200 mg calcium (500 mg) Tablet,Chewable 200 mg PO QID PRN (Reason: Heartburn) PNV [id number] [] 28 mg iron- 800 mcg Tablet 1 tablet PO DAILY cyclobenzaprine 10 mg tablet 10 mg PO TID Qty: 15 0RF Discontinued nifedipine [Procardia XL] 30 mg Tablet Extended Release 24hr 30 mg PO DAILY 60 Days Qty: 60 0RF Date of admission: 01/11/22 01:52 Primary Care Provider: PHYSICIAN,CONDITIONER TUMBLER OPERATOR Admitting Provider: Nick Rivera Attending physician on admission: Nick Rivera Condition: Stable
[2022-01-13 09:00] VITALS: PULSE 106; RESP 18; O2SAT 100
[2022-01-13] MEDS: MULTIVIT/MIN/PREN/FOL AC/IRON TABLET 1 TAB PO (09:20)
[2022-01-13] MEDS: IBUPROFEN 600 MG TABLET PO (09:21)
[2022-01-13] MEDS: DOCUSATE SODIUM 100 MG CAPSULE PO (09:21)
[2022-01-13] MEDS: WITCH HAZEL 40 PADS 1 PAD TOPICAL (09:21)
[2022-01-13] MEDS: BENZOCAINE 20% AER SPR (*SP) 56 GM CAN 1 SPRAY TOPICAL (09:21)
[2022-01-13] MEDS: POLYSACCHARIDE IRON COMPLEX 150 MG CAPSULE PO (09:21)
--- NOTE | 2022-01-13 10:13 | PC.NURSE ---
[id number] Mother led the conversation with her experience and plan to feed her so far and her ability to pump and feed. Reminded parents to use good handwashing technique to prevent infection. Mother is feeding appropriately for growth of infant and understands stimulating to eat if needed. has had appropriate feedings in the last 24 hours meets the outcomes for weight, output and jaundice at this time. Mother states she is confident to continue pumping and feeding her at home or when to call for assistance and denies any additional assistance or education at this time. Reinforced understanding of milk production, transition of milk, signs of adequate intake, prevention/relief of engorgement, responsive after visualizing feeding cues, the different methods of stimulating infant to breastfeed 2-3 hours after the start of the last feeding, community resources, medication information reviewed per [facility] and when to call a provider using the resource of the mom and baby guide/[facility] website. Mother voiced understanding of the education shared. Reported to the primary RN.
[2022-01-14 11:23] VITALS: BP 132/90; PULSE 110; RESP 20; TEMP 36.9; O2SAT 99
== END 2022-01-13 13:43 | disposition home or self-care (01) | DRG 560 ==
LOC: ANHLDR 02:28 → ANHOB2 07:24
PROVIDERS: Admitting Provider Obstetrics & Gynecology; Visit Provider Obstetrics & Gynecology
DX: O62.3 Precipitate labor (principal); Z37.0 Single live birth; Z3A.39 39 weeks gestation of pregnancy; O70.1 Second degree perineal laceration during delivery
CPT/HCPCS: 36415; 85014; 85018; 85025; 85055; 86592; 86850; 86900; 86901; A9270; J2590

== ENCOUNTER 2022-09-13 15:06 | Emergency (ER) | payer OTHER, SELFPAY ==
--- NOTE | 2022-09-13 15:11 | ED.URI ---
HPI - URI/Sore Throat General Chief Complaint: Upper Respiratory Infection Stated Complaint: uri Time Seen by Provider: 09/13/22 15:50 Source: patient and RN notes reviewed Mode of arrival: ambulatory Limitations: no limitations History of Present Illness HPI Narrative: 27-year-old female presents with concern for left ear pain, nasal congestion, rhinorrhea, sinus pain, cough for a week and a half. Reports she has been taking Robitussin and a natural remedy without relief. MD elicited complaint: cough and nasal congestion Related Data Allergies Allergy/AdvReac Type Severity Reaction Status Date / Time aspirin Allergy Unknown Verified 09/13/22 15:19 Review of Systems Review of Systems: CONSTITUTIONAL: Denies malaise, chills, sweats, or fever. EYES: Denies visual changes, redness, or discharge. ENT: Reports rhinorrhea, congestion, sinus pain, otalgia CARDIOVASCULAR: Denies chest pain, palpitations, or edema. RESPIRATORY: Reports cough. Denies dyspnea. GASTROINTESTINAL: Denies abdominal pain, nausea, vomiting, diarrhea SKIN: Denies rash or itching. MUSCULOSKELETAL: Denies myalgia. NEUROLOGIC: Reports headache. All systems reviewed & are unremarkable except as noted in HPI and below PMFSH Past Medical History Medical History Patient denies significant medical history Family History Family History (Updated 01/05/22 @ 14:29 by Brenden Lee RN) Mother Hypertension Grandparent Breast cancer in female Social History Social History Smoking status: Never smoker Second hand tobacco smoke exposure: Yes Alcohol intake: current Substance use: current Last use: 10/2021 Spiritual care concerns: No Comments At time of signature, agree with nursing past medical, surgical, social and family history. There is no relevant family history pertinent to the presenting complaint Exam Narrative: GENERAL: Well-appearing, well-nourished, and in no acute distress. HEAD: Normocephalic EYES: PERRLA, conjunctivae clear ENT: Nares clear, turbinates edematous and erythematous, sinus symptoms. Mucous membranes moist. Right tM pearly barrios with dull light reflex the left TM erythematous, no tragal tenderness. Oropharynx not erythematous without lesions. Tonsils not enlarged and without exudate, no drooling, no hoarseness, no trismus, uvula midline. NECK: Supple. No lymphadenopathy CHEST: Clear to auscultation, breath sounds equal. No wheezing, rhonchi, rales, or stridor. No respiratory distress, speaks in full sentences. HEART: Regular rate and rhythm. No murmur heard. SKIN: Warm, dry, no rash. NEURO: Alert and oriented x3. PSYCH: Normal mood and affect Course Course Emergency Course: Patient is aware of diagnosis, understands and agrees to treatment plan. Anticipatory guidance given. Patient agrees to follow-up as directed and is aware of reasons to seek care at the emergency department. Portions of this record may have been created with voice recognition software Level of Care: Express Care Visit Vital Signs Vital signs: Reviewed. MDM - URI/Sore Throat MDM Narrative Medical decision making narrative: Differential diagnosis considered: Colon virus, strep pharyngitis, allergic rhinitis, upper respiratory tract infection, sinusitis, rhinosinusitis, nasopharyngitis. viral pharyngitis, otitis media, otitis externa, pneumonia, bronchitis, viral cough syndrome, viral syndrome, and influenza. Exam findings show no acute concerns or changes; patient is non-toxic appearing and is in no distress. Patient is appropriate for outpatient treatment and follow-up. Lab Data Attestation: I reviewed the patient's lab results. Critical Care Time Critical Care Time Critical Care Time: No Discharge Plan Discharge Clinical Impression: Otitis media, Sinusitis Patient Disposition: Home, Self-Care Condition: Stable In
[2022-09-13 15:13] VITALS: BP 132/79; PULSE 77; RESP 16; TEMP 36.8; O2SAT 99
== END 2022-09-13 16:04 | disposition home or self-care (01) ==
PROVIDERS: Emergency Provider Nurse Practitioner
DX: H66.90 Otitis media, unspecified, unspecified ear (principal); J32.9 Chronic sinusitis, unspecified
CPT/HCPCS: 99213; G0463

== ENCOUNTER 2024-03-07 12:24 | Outpatient (CLI) | payer OTHER, SELFPAY ==
--- NOTE | ~2024-03-07 | MMUS_ITS ---
EXAMINATION: MM diagnostic sunday BI w chas, US breast LT limited HISTORY: Breast hypertrophy TECHNIQUE: 3-D tomosynthesis images of the bilateral breasts were performed and synthetic 2-D images were generated. CAD analysis was submitted and interpreted. High resolution limited left breast ultra sound was performed. COMPARISON: None BREAST PARENCHYMAL COMPOSITION:Not Dense. There are scattered areas of fibroglandular density. FINDINGS: MAMMOGRAPHIC FINDINGS: There are nodular opacities in the left subareolar region, and central to lower left breast, however these demonstrate relative effacement on spot compression. No parenchymal abnormality the right breas t seen. No suspicious macrocalcifications. ULTRASOUND: No sonographic abnormality seen in the region scanned in the left breast. No sonographic correlate to areas of nodular opacity seen on initial mammographic images. IMPRESSION: No definite evidence of malignancy. Probable benign asymmetric areas of fibroglandular tissue in lef t breast. Six-month follow-up mammogram recommended to assure stability. BI-RADS category 3, probably benign findings. Reviewed, dictated and finalized at location . IMPRESSION: No definite evidence of malignancy. Probable benign asymmetric areas of fibrog landular tissue in left breast. Six-month follow-up mammogram recommended to as sure stability. BI-RADS category 3, probably benign findings.
== END 2024-03-07 12:25 | disposition home or self-care (01) ==
LOC: ANHIMG 12:25
PROVIDERS: Visit Provider Plastic Surgery
DX: N62 Hypertrophy of breast (principal)
CPT/HCPCS: 76642; 77062; 77066; G0279

== ENCOUNTER 2024-03-16 06:05 | Day surgery (SDC) | payer OTHER, SELFPAY ==
[2024-03-03 10:37] VITALS: BMI 34.8
[2024-03-16] VITALS (9 sets, daily range): BP systolic 132–165; BP diastolic 95–103; PULSE 68–92; RESP 12–16; TEMP 36.1–36.3; O2SAT 94–100; BMI 34.6
--- NOTE | 2024-03-16 07:00 | P.HPUP_ITS ---
History and Physical Update Update Date/Time: 03/16/24 07:00 Patient seen and examined in pre-operative holding area. No interval change in medical history or symptoms. Patient remembers previous discussion of benefits and alternatives to procedure. Continues to desire to proceed with bilateral breast reduction. I reviewed the risks including but not limited to bleeding ,infection, asymmetry, undesireable cosmetic appearance, partial/total skin/nipple loss, no change or worsening of symptoms, change in sensation. I discussed the possible use of assistants and their level of participation in the case. Patient stated understanding and signed the consent form wishing to pr oceed mammogram and ultrasound reports reveiwed and discussed with patient.
--- NOTE | 2024-03-16 07:00 | P.OP_ITS ---
Procedure Note - Detailed Date of Procedure 03/16/24 Pre-op Diagnosis Hypertrophy of Breasts Post-op Diagnosis Same Procedure Performed b/l breast reduction Surgeon Anaya Corbett MD Director Of Product Management Rocio Mott PA-C Anesthesia General Description of Procedure Patient was seen in the preoperative holding area where the breast were marked for an inferior pedicle Little pattern reduction and the consent form signed. Patient was taken back to the operating room and placed on the table in the supine position. Time-out was performed with Anesthesia, surgeon, and staff agreeing on patient's name, site, and surgery to be performed. SCDs were placed on the lower extremities and inflated. Antibiotics were given IV. After general anesthesia was administered the breasts were prepped and draped in the usual sterile fashion. I take my attention 1st to the right breast where a used a saline moistened lap pad and Shanita clamp to create a breast tourniquet. 38 mm nipple Sizer was used to circumscribe the nipple-areolar complex. I made my incision with 15 blade scalpel proceeded with de epithelializing a 7 cm wide inferior pedicle. I made my other skin incisions and then elevated my superior skin flaps and Cory's plane down to the chest wall with Bovie cautery. I proceeded with resection of 808 g of tissue from the right breast. I plicated the pedicle with 2-0 Vicryl suture. The skin flaps were secured with 2-0 Prolene for the T junction followed by 3-0 Vicryl suture for dermis the nipple was brought out 5 cm above the inframammary fold at the most prominent portion of the breast at the breast midline and secured with 3-0 Vicryl suture 4-0 Monocryl was used for subcuticular closure. The nipple and skin flaps appeared viable with good cap refill. I next to my attention to the left breast where similar procedure was performed using the breast tourniquet 38 mm nipple Sizer and de-epithelializing a 7 cm wide inferior pedicle. Skin my other incisions were made with 15 blade scalpel and Bovie cautery used to elevate superior skin flaps and Cory's plane down to the chest wall. I proceeded with resecting 1051 g of tissue from the left breast noting it was denser than the right breast and this now appeared reasonably symmetric to the right breast. The pedicle was plicated with 2-0 Vicryl suture. I irrigated with normal saline and hemostasis was obtained with Bovie cautery. 2-0 Prolene was used for the T-junction. 3-0 Vicryl was used for dermis. The nipple again was brought out 5 cm above the inframammary fold the most prominent portion of the breast at the breast midline and secured with 3-0 Vicryl suture 4-0 Monocryl was used for subcuticular closure. Again the skin flaps and nipple appeared viable with good cap refill. There was good symmetry in appearance to the reduced breasts. 20 cc of 1% lidocaine with epinephrine and 0.5% Marcaine plain were injected along the inframammary fold and anterior axillary line of each breast. A dressing of Mastisol, Steri-Strips, 4x4s, ABDs and a breast binder was then applied. The patient was awakened from anesthesia and transferred to the recovery room in stable condition. Complications: None estimated blood loss: 30 cc disposition: Patient tolerated the procedure well and will be going home later today Rocio Mott PA-C was essential for positioning, retraction, closure and dressing placement [facility] [place] Billing Surgery - Charge Forward: Surgery Billing ([id number] same for rocio anderson )
--- NOTE | 2024-03-16 07:19 | P.PNAN_ITS ---
Anes - Initial Pre Proc Eval Procedure: Operation Date: 03/16/24 07:30 Proposed Procedures p Bilateral Breast Reduction Mammoplasty - Anaya Corbett MD Date/Time: 03/16/24 07:19 Surgeon: Anaya Corbett MD Pre Op Diagnosis: Hypertrophy of Breasts Patient Data Age: 28 Gender: F Height: 1.73 m Weight: 103.4 kg Last Vital Signs Temp 36.3 C L 03/16/24 06:35 Pulse 68 03/16/24 06:35 Resp 16 03/16/24 06:35 BP 132/100 H 03/16/24 06:35 Pulse Ox 100 03/16/24 06:35 O2 Del Method Room Air 03/16/24 06:35 Allergies Allergy/AdvReac Type Severity Reaction Status Date / Time aspirin Allergy Unknown Verified 03/16/24 06:22 Home Medications Medication Instructions Recorded Confirmed Type No Home Medications 10/26/23 03/16/24 History Patient hx anesthesia problems: none Family hx anesthesia problems: none Results Review: All pre-operative results and documents have been reviewed as part of the pre-o perative evaluation. [facility] Past Medical History Medical History (Updated 03/16/24 @ 07:19 by Sujit Godfrey MD) Obesity Family History Family History Mother Hypertension Grandparent Breast cancer in female Social History Social History Smoking status: Never smoker Second hand tobacco smoke exposure: Yes Alcohol intake: current Alcohol use details: occasional Substance use: current Substance use type: marijuana Other substance usage details: occasional Last use: 10/2021 Living arrangements: with family Spiritual care concerns: No Anes - Eval Final PreProcedure Day of Procedure 03/16/24 07:19 Patient weight: obese Heart: regular rate and rhythm Lungs: clear to auscultation Airway: Mallampati scale class II Neurological: alert and oriented Last oral intake: >/= 8 hours ASA classification: II Emergent: no Anesthetic plan: proceed Anesthesia type and monitoring: general ETT and standard monitoring Results Review: All pre-operative results and documents have been reviewed as part of the pre- operative evaluation. Informed Consent: The patient's anesthetic plan and its attendant risks and benefits were discussed with the patient/family/POA. Questions were solicited and answers provided to the satisfaction of the patient/family/POA.
--- NOTE | 2024-03-16 07:19 | SUR.PREOP ---
DR ARREGUIN MARKING PT. PT'S MOTHER IN ROOM
[2024-03-16] MEDS: LACTATED RINGERS 1,000 ML 30 ML IV CONT ×2 (07:23→09:56)
[2024-03-16] MEDS: ceFAZolin SODIUM 2 GM/20 ML SW SYRINGE IV PUSH (07:30)
[2024-03-16] MEDS: BUPivacaine HCL 0.5% 10 ML AMP 20 ML INFILTRATE (09:44)
[2024-03-16] MEDS: LIDO 1%/EPINEPHRINE 1:100,000 10 ML VIAL 20 ML INFILTRATE (09:44)
[2024-03-16] MEDS: HYDROmorphone HCL INJ (*CRX) 2 MG/ML VIAL 0.5 MG IV PUSH ×4 (10:25→10:41)
[2024-03-16] MEDS: ONDANSETRON INJ 4 MG/2 ML VIAL IV PUSH (10:50)
== END 2024-03-16 12:03 | disposition home or self-care (01) ==
PROVIDERS: Visit Provider Plastic Surgery
PROC: 0HBV0ZZ Excision of Bilateral Breast, Open Approach (ICD-10-PCS; CPT 19318; principal; 2024-03-16 07:30)
DX: N62 Hypertrophy of breast (principal)
CPT/HCPCS: 19318 ×2

== ENCOUNTER 2024-03-16 07:00 | Outpatient (NON) | payer OTHER, SELFPAY ==
--- NOTE | 2024-03-28 08:05 | WPDANESPN ---
Anes - Prog Note Post-Op Date/Time: 03/28/24 08:05 Cardiovascular status: normal Respiratory status: normal Airway patency: baseline Mental status: baseline Post-Op hydration status: normal Pain Score (VAS): 0/10 Patient Feedback: Patient satisfied with anesthetic care.
== END 2024-03-16 07:01 | disposition home or self-care (01) ==
PROVIDERS: Visit Provider Plastic Surgery
DX: N62 Hypertrophy of breast (principal)
CPT/HCPCS: 88305

== ENCOUNTER 2024-11-10 21:19 | Emergency (ER) | payer OTHER, SELFPAY ==
[2024-11-10] VITALS (13 sets, daily range): BP systolic 140–152; BP diastolic 90–101; PULSE 53–67; RESP 11–22; TEMP 36.4; O2SAT 94–100
--- NOTE | ~2024-11-10 | CT_ITS ---
EXAMINATION: CTA chest PE protocol DATE: 11/10/2024 23:43 CDT INDICATION: Chest pain and shortness of breath TECHNIQUE: Computed tomographic angiography (CTA) of the chest was performed with 100 mL Omnipaque-35 0 intravenous contrast. The dose-length product was 609.64 mGy-cm. Maximum intensity projection 3D-re constructions of the aorta and other arteries were constructed by the technologist on a separate work station. COMPARISON: None. FINDINGS/OBSERVATIONS: PULMONARY ARTERIES: No filling defect is identified within the main or proximal pulmonary artery. The main pulmonary artery is not enlarged. THORACIC AORTA: No aneurysmal dilatation or dissection is present. The great vessels are intact LUNGS: The lungs are clear MEDIASTINUM: No morphologically suspicious or pathologically enlarged lymph nodes are identified with in the mediastinum or bilateral axilla. Small air-filled hiatal hernia. BONES OF THE CHEST: No acute fracture. No significant degenerative disease. No lytic or blastic lesions. HEART: The heart is of normal size, without pericardial effusion. IMPRESSION: No pulmonary embolus. No thoracic aortic dissection. The lungs are clear. Small hiatal hernia. Reviewed, dictated and finalized at location A.
--- NOTE | ~2024-11-10 | XR_ITS ---
CHEST RADIOGRAPH, PA AND LATERAL CLINICAL HISTORY: CP/SHOB . COMPARISON: None available TECHNIQUE: PA and lateral views of the chest. FINDINGS The cardiomediastinal silhouette is unremarkable. The lungs are clear. Visualized osseous structures and soft tissues are unremarkable. IMPRESSION: No focal infiltrate or effusion. Reviewed, dictated and finalized at location A.
--- NOTE | 2024-11-10 21:20 | ECG_ITS ---
Test Date: 2024-11-10 21:28:50 Measurements Intervals [place] Rate: 65 P: 19 UT: 158 QRS: 69 QRSD: 96 T: 54 QT: 358 QTc: 374 Interpretive Statements SINUS RHYTHM WITH SINUS ARRHYTHMIA No previous ECG available for comparison Electronically Signed On 11-11-2024 17:09:37 CDT by Marquez Varghese M.D.
--- OUTSIDE RECORDS SUMMARY | 2024-11-10 21:21 | XMS_ITS | Clinical Summary ---
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 Name Role Phone No, Physician Primary Care Provider [phone] Allergies Active Allergy Reactions Criticality Noted Date Comments Aspirin Dizziness Low 08/09/2023 Ibuprofen Dizziness Low 08/05/2022 Overheated, abd pain/cramping Medications valACYclovir (VALTREX) 1 gram tablet Take 1 tablet by Mouth Twice Daily for 3 days 6 tablet 07/11/2024 Active Hospital, Clinic, or Other Facility Administered Medication Ordered Dose Route Frequency Start Date End Date Status etonogestreL (NEXPLANON) implant 68 mgIndications:Pregna ncy Contraception 68 mg subderm Continuous (implanted device) 09/14/2023 09/13/2026 Active Active Problems Problem Noted Date Diagnosed Date At high risk for breast cancer 08/05/2022 Overview (08/05/2022): Lifetime risk score 22% Menorrhagia with regular cycle 08/05/2022 Medical History Medical History Date Comments 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 Family History Medical History Relation Name Comments Breast cancer Maternal Grandfather 60's Breast cancer Mother's Sister 50's Relation Name Status Comments Maternal Grandfather 60's Alive Mother's Sister 50's Alive Social History Tobacco Use Types Packs/Day Years Used Date Smoking Tobacco: Never Smokeless Tobacco: Never Tobacco Cessation:Counseling Given: Not Answered Personal Safety Answer Date Recorded Getting School Help Needed Not on file 06/20 Comments No Sex and Gender Information Value Date Recorded Sex Assigned at Not on file Legal Sex Female 8:38 PM TNT LINE SUPERVISOR Gender Identity Not on file Sexual Orientation Not on file Obstetrics History Para Term AB IAB SAB Ectopic Multiple Livin g Live Births 2 1 1 1 1 1 Date Outcome GA Total Labor Labor/2nd/3rd Weight Sex Type Anes PTL Vani A1 A5 Name Clin Term SAB Last Filed Vital Signs Vital Sign Reading Time Taken Comments Blood Pressure 120/80 09/14/2023 11:27 AM CDT Pulse 80 01/27/2019 2:15 AM CDT Temperature 37.1 C (98.8 F) 01/27/2019 2:15 AM CDT Respiratory Rate - - Oxygen Saturation 98% 01/27/2019 2:15 AM CDT Inhaled Oxygen Concentration - - Weight 106.2 kg (234 lb 3.2 oz) 024 11:27 AM CDT Height 170.2 cm (5' 7 ) 09/14/2023 11:2 7 AM CDT Body Mass Index 36.68 09/14/2023 11:27 AM CDT Plan of Treatment Health Maintenance Due Date Last Done Comments Depression Screening 1995 DTaP/Tdap/Td Vaccine (6 - Td or Tdap) 02/18/2019 02/18/2009, 04/21/2001, 04/21/2001, Additional history exists Covid-19 Vaccine ( season) 2024 05/16/2021, 04/25/2021, 04/25/2021 Cervical Cancer Screening 08/09/2024 08/09/2023 Regular Well Visit/Exam 18-64 08/09/2024 08/09/2023, 08/05/2022 Influenza Vaccine (Season Ended) 2025 Hepatitis B Screening Completed 1995 , 1995, 1995, Additional history exists Varicella Vaccines Completed 02/18/2009, 04/21/2001 HPV Vaccines Completed 07/25/2012, 09/2012, 09/23/2011, Additional history exists Hepatitis C Screening Completed 08/05/2022 Pneumococcal vaccine <65 Aged Out No longer eligible based on patient's age to complete this topic Procedures Procedure Name Priority Date/Time Associated Diagnosis Comments PAP WITH REFLEX TO HIGH RISK HPV Routine 08/09/2023 4:26 PM TNT LINE SUPERVISOR Well woman exam with routine gynecological exam HEPATITIS PANEL, ACUTE Routine 08/05/2022 2:42 PM TNT LINE SUPERVISOR Well woman exam with routine gynecological exam Screening for STD (sexually transmitted disease) from Last 3 Months or Most Recently Relevant to Health Maintenance Results * Pap with reflex to High Risk HPV and Genotyping (Cytology Component) (08/09/2023 4:26 PM TNT LINE SUPERVISOR) Thin prep (Pap test) 08/09/2023 4:26 PM TNT LINE SUPERVISOR 08/10/2023 5:53 PM TNT LINE SUPERVISOR Narrative PATHOLOGY [facility] - 08/17/2023 8:20 AM TNT LINE SUPERVISOR EPIC results best viewed via link to PDF [facility] [place] [address] Note to Patients: This report may contain a detailed description of human tissue sent by a health care provider to the laboratory for pathologic evaluation. The content of this report is essential for diagnosis and may provide important critical findings. This information may be unfamiliar to patients to review without a medical professional present. It is advised that the patient review this report in the presence of a health care provider who can answer questions and explain the details. CYTOPATHOLOGY REPORT FINAL Patient Name: NATAN MILAN Gender: F : 1995 (Age: 28) Address: [address] [place] [address] Hospital #: [id number] Service: DEFAULT Location: Patient Type: [facility] SPECIMEN Taken: 08/09/2023 Received: 08/10/2023 Accessioned: 08/11/2023 Reported: 08/17/2023 Physician(s): Toma Peters CNM FINAL INTERPRETATION SOURCE OF SPECIMEN Liquid based Thin Prep pap with Reflex HPV: STATEMENT OF ADEQUACY - Satisfactory for evaluation - Endocervical cells/transformation zone sample present GENERAL CATEGORIZATION: - Negative for squamous intraepithelial lesion or malignancy INTERPRETATION: - Shift in savanna suggestive of bacterial vaginosis librado/08/17/2023 08:20 SKINNY Velazquez(ASCP) Report Electronically Reviewed and Signed Out By SKINNY Velazquez(ASCP) 08/17/2023 08:20:51 Cervicovaginal Cytology (Pap Test) Disclaimer: The Pap test is a screening test used to detect cervical cancer and its precursors; it is not a diagnostic procedure. False negative and false positive results do occur. Pap test results should be interpreted in the context of pertinent clinical information and biopsy results as indicated. [facility] Clinical Laboratory Improvement Amendments (CLIA) mandate that cytologic and histologic results be correlated for laboratory principal quality engineer & improvement standards. FOR ALL HIGH-GRADE CASES we request submission of follow-up histological material and/or reports that have not been previously provided so that we may fulfill said required standards. Gross Description A. Liquid based Thin Prep pap with Reflex HPV: Cervical/vaginal - Screening ThinPrep Clinical Diagnosis and History Last Menstrual Period: 08/04/23 The patient is a 28 year old woman with well woman exam. Report Images and scanned documents, if included only viewable in PDF version The performance characteristics of some immunohistochemical stains, in-situ hybridization and fluorescence in-situ hybridization tests and immunophenotyping by flow cytometry cited in this report (if any) were determined by the Surgical Pathology Department at [facility] as part of an ongoing quality measurement specialist program and in compliance with federally mandated regulations drawn from the Clinical Laboratory Improvement Act of 1988 (CLIA '88). Some of these tests rely on the use of analyte specific reagents and are subject to specific labeling requirements by the US Food and Drug Administration. Such diagnostic tests may only be performed in a facility that is certified by the Department of Health and Human Services as a high complexity laboratory under CLIA '88. The FDA has determined that such clearance or approval is not necessary. This test is used for clinical purposes. It should not be regarded as investigational or for research. Nevertheless, federal rules concerning the medical use of analyte specific reagents require that the following disclaimer be attached to the report: This test was developed and its performance characteristics determined by the Surgical Pathology Department of [facility]. It has not been cleared or approved by the U. S. Food and Drug Administration. Toma Peters CNM LAB CYTOLOGY ORDERA BLES Final Result PATHOLOGY [facility] * Hepatitis panel, acute (08/05/2022 2:42 PM TNT LINE SUPERVISOR) Hep A IgM Nonreactive Nonreactive CASSANDRA Comment: Interpretive Data: If Hep A IgM Ab is reported as Equivocal, a new sample should be drawn in two weeks for testing. Current interpretive data was last revised on 19. Hep B core IgM Nonreactive Nonreactive CASSANDRA Comment: Interpretive Data If HepB Core IgM Ab is reported as Equivocal, a new sample should be drawn in two weeks for testing. Current interpretive data was last revised on 19. Hep C Ab Nonreactive Nonreactive CASSANDRA Comment: Interpretive Data Nonreactive: Antibodies to HCV not detected. Does NOT exclude the possibility of recent exposure to HCV. Equivocal: Equivocal for HCV antibodies. Supplemental molecular testing will be automatically performed to determine infection status in accordance with current CDC screening recommendations. Reactive: Positive for HCV antibodies. This may represent current or past HCV infection. Supplemental molecular testing will be automatically performed to determine current infection status in accordance with current CDC screening recommendations. Interpretive data was last revised on 2019. HepBsAg Nonreactive Nonreactive CASSANDRA Blood 08/05/2022 2:42 PM TNT LINE SUPERVISOR 08/05/2022 6:43 PM TNT LINE SUPERVISOR us Morena Heredia NP LAB MICROBIOLOGY - GENERAL ORDER DEIDRE Final Result Performing Organization Address [facility] Co de Phone Number CASSANDRA [address] [facility] Department of Laboratories [place], [place] [id number] from Last 3 Months or Most Recently Relevant to Health Maintenance Insurance [employer] Care Teams Plant Safety Leader Relationship Specialty Start Date End Date No, Physician PCP - General 08/05/22
--- OUTSIDE RECORDS SUMMARY | 2024-11-10 21:21 | XMS_ITS | Data Portability ---
Author Organization [facility] [place] [facility] Address [address] [facility] [place] [address] Care Team Providers Care Software Applications Developer Name Role Phone KEIRY GENTILE Primary Care Provider [phone] Assessment No assessment recorded. Plan of Treatment Reminders Order Date Submit Date Provider Last Modified By Organization Details Last Modified Time Details Appointments None recorded. Lab lipid panel, serum 2023 024 [facility], [address] [place], [place] [address] [address], [address], [place], [address], 4 06:21:06 TSH + free T4, serum 2023 024 [facility], [address] [place] [address], [address], [place], [address], 4 06:21:05 RPR (rapid plasma reagin), serum 2023 024 [facility], [address] [place] [address], [address], [place], [address], 4 06:21:08 HIV 1 + 2, meaningful use set 2023 024 [facility], [address] [place] [address], [address], [place], [address], 4 06:21:09 hepatitis panel (A+B+C), acute, serum 2023 024 [facility], [address] [facility], [address], [place], [address], 4 06:21:03 chlamydia trachomatis + neisseria gonorrhoeae + trichomonas vaginalis rRNA panel, MACK+probe 2023 024 [facility], [address] [facility] [address], [address], [place], [address], 4 06:21:04 Hepatitis C IgG Ab, qual, serum 2023 024 [facility], [address] [place] [address] [address], [address], [place], [address], 4 06:21:02 HbA1c (hemoglobin A1c), blood 2023 024 [facility], [address] [place] [address], [address], [place], [address], 4 06:21:07 RPR (rapid plasma reagin), serum 2022 023 [facility], [address] [place] [address], [address], [place], [address], 3 21:08:09 HIV 1 + 2, meaningful use set 2022 023 [facility], [address] [place] [address] [address], [address], [place], [address], 3 21:08:10 hepatitis panel (A+B+C), acute, serum 2022 023 [facility], [address] [facility] [address], [address], [place], [address], 3 21:08:07 chlamydia trachomatis + neisseria gonorrhoeae + trichomonas vaginalis DNA panel, MACK+probe, unspecified specimen 2022 023 [facility], [address], [address], [place], [address], 3 21:08:09 urinalysis, dipstick 2022 023 [facility] 1 In-Office Order, Internal Use Only DO Not Attach Compendium DO Not Attach Compendium, Do Not Delete/merge, [id number] 3 14:01:59 HbA1c (hemoglobin A1c), blood 2022 023 [facility], [address], [address], [place], [address], 3 00:07:17 CMP, serum or plasma 2022 023 [facility], [address] [facility] [facility] [address], [address], [place], [address], 3 19:09:29 lipid panel, serum 2022 023 [facility], [address], [address], [place], [address], 3 19:09:28 HbA1c (hemoglobin A1c), blood 2020 021 [facility], [address] [facility] [address], [address], [place], [address], 1 20:07:53 lipid panel, serum 2020 021 [facility], [address], [address], [place], [address], 1 20:07:51 CMP, serum or plasma 2020 021 [facility], [address], [address], [place], [address], 20:07:50 TSH, ultra-sensi tive, serum 2020 [facility], [address], [address], [place], [address], 20:07:55 CBC w/ auto diff 2020 [facility], [address], [address], [place], [address], 20:07:50 HIV 1+2 AB + HIV 1 p24 Ag, qualitative immunoassay , serum 2020 [facility], [facility] [address], [address], [place], [address], 20:07:54 RPR (rapid plasma reagin), serum 2020 [facility], [address] [facility] [address], [address], [place], [address], 20:07:53 CT + NG + TV, DNA, urine/swab 2020 [facility], [address] [place], [place] [address], [address], [place], [address], 20:07:52 hepatitis C Ab, signal-to-c utoff, serum or plasma 2020 [facility], [address], [address], [place], [address], 20:07:52 Referral physical therapist referral 2022 023 [facility], [address] [facility], [place], [address], 3 10:57:15 Procedures None recorded. Surgeries None recorded. Imaging US, thyroid [address] (Imaging), [address] [facility] [address], [address], 4 08:18:21 US, thyroid 2020 021 [facility] (Imaging), [address], [place], [address], 1 13:33:14 Medication Orders valacyclovi r 1 gram tablet 2022 023 [facility] 1 [facility] [address], [address] [place], [address], 3 12:06:15 cyclobenzap rine 10 mg tablet 2022 023 marisa [facility], [address] [place], [address], 3 08:52:26 sertraline 50 mg tablet [address] [facility], [address] [place], [address], 4 17:01:33 Sprintec (28) 0.25 mg-0.035 mg tablet [address] [facility], [address] [place], [address], 4 17:01:00 Patient TargetsNo targets recorded. 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 [facility] Not available 08/12/2022 16:02:38 A healthy lifestyle: care instructions [facility] Not available 08/12/2022 16:00:56 piriformis syndrome: exercises [facility] Not available 08/12/2022 15:59:49 08/27/2022 [id number] A healthy lifestyle: care instructions [facility] Not available 08/27/2022 12:21:14 -oral contraception does not provide protection against sexually transmitted infections -do not smoke while taking oral contraceptive, it increases your risk of blood clots -physical activity is important, aim for 30 minutes of aerobic activity 4 days a week -take your pill at the same time every day -50% of patients have break through bleeding during the first 3 months on oral contraceptives, but then that usually abates. Break through bleeding does not indicate decrease in effectiveness of the pills. -If one pill is missed, take missed pill as soon as remembered. If not remembered until time for next pill, take 2 pills -if 2 consecutive pills are missed, take 2 pills per day for the next 2 days, then resume 1 pill per day. Use a back up method for the remainder of cycle [place] [address] Not available 08/27/2022 11:12:33 11/11/2022 [id number] A healthy lifestyle: care instructions [facility] Not available 11/11/2022 15:00:56 05/15/2024 [id number] A healthy lifestyle: care instructions Not available 05/15/2024 16:59:02 A healthy lifestyle: care instructions Not available 05/15/2024 16:59:02 safer sex: care instructions Not available 05/16/2024 13:54:31 exposure to sexually transmitted infections: care instructions Not available 05/16/2024 13:54:31 sexually transmitted disease education Not available 05/16/2024 13:54:31 Reason for Referral Physical Therapist Referral for Thoracic back pain Referring Physician: Keiry Gentile, Purification Operator, Encounter Date: 08/12/2022 Results Created Date Observation Date Name Description Value Unit Range Abnormal Flag Note LastModifiedBy Organization Detail LastModifiedTime 05/14/2005/15/2021 CBC WITH DIFFE RENTI AL/PL ATELE T WBC 8.1 x10e3 /uL 3.4-10 .8 Not Available [facility] ([facility]) [address] [place], [address], 05/16/2021 20:07:50 05/14/20 21 05/15/2021 CBC WITH DIFFE RENTI AL/PL ATELE T RBC 4.73 x10e6 /uL 3.77-5 .28 Not Available [facility] ([facility]) [address] [place], [address], 05/16/2021 20:07:50 05/14/20 21 05/15/2021 CBC WITH DIFFE RENTI AL/PL ATELE T hemoglobin 11.9 g/dL 11.1-1 5.9 Not Available [facility] ([facility]) [address] [place], [address], 05/16/2021 20:07:50 05/14/20 21 05/15/2021 CBC WITH DIFFE RENTI AL/PL ATELE T hematocrit 37.7 % 34.0-4 6.6 Not Available [facility] ([facility]) [address] [place], [address], 05/16/2021 20:07:50 05/14/20 21 05/15/2021 CBC WITH DIFFE RENTI AL/PL ATELE T MCV 80 fL 79-97 Not Available [facility] ([facility]) [address] [place], [address], 05/16/2021 20:07:50 05/14/20 21 05/15/2021 CBC WITH DIFFE RENTI AL/PL ATELE T MCH 25.2 pg 26.6-3 3.0 below low normal Not Available [facility] ([facility]) [address] [place], [address], 05/16/2021 20:07:50 05/14/20 21 05/15/2021 CBC WITH DIFFE RENTI AL/PL ATELE T MCHC 31.6 g/dL 31.5-3 5.7 Not Available [facility] ([facility]) [address] [facility], [place], [address], 05/16/2021 20:07:50 05/14/20 21 05/15/2021 CBC WITH DIFFE RENTI AL/PL ATELE T RDW 14.5 % 11.7-1 5.4 Not Available [facility] ([facility]) [address] [facility], [place], [address], 05/16/2021 20:07:50 05/14/20 21 05/15/2021 CBC WITH DIFFE RENTI AL/PL ATELE T platelets 332 x10e3 /uL 150-45 0 Not Available [facility] ([facility]) [address] [facility], [place], [address], 05/16/2021 20:07:50 05/14/20 21 05/15/2021 CBC WITH DIFFE RENTI AL/PL ATELE T neutrophils 56 % not estab. Not Available [facility] ([facility]) [address] [facility], [place], [address], 05/16/2021 20:07:50 05/14/20 21 05/15/2021 CBC WITH DIFFE RENTI AL/PL ATELE T lymphs 30 % not estab. Not Available [facility] ([facility]) [address] [facility], [place], [address], 05/16/2021 20:07:50 05/14/20 21 05/15/2021 CBC WITH DIFFE RENTI AL/PL ATELE T monocytes 11 % not estab. Not Available [facility] ([facility]) [address] [facility], [place], [address], 05/16/2021 20:07:50 05/14/20 21 05/15/2021 CBC WITH DIFFE RENTI AL/PL ATELE T eos 2 % not estab. Not Available [facility] ([facility]) [address] [facility], [place], [address], 05/16/2021 20:07:50 05/14/20 21 05/15/2021 CBC WITH DIFFE RENTI AL/PL ATELE T basos 1 % not estab. 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 0 Not Available [facility] ([facility]) [address] [place], [address], 05/16/2021 20:07:50 05/14/20 21 05/15/2021 CBC WITH DIFFE RENTI AL/PL ATELE T lymphs (absolute) 2.4 x10e3 /uL 0.7-3. 1 Not Available [facility] ([facility]) [address] [place], [address], 05/16/2021 20:07:50 05/14/20 21 05/15/2021 CBC WITH DIFFE RENTI AL/PL ATELE T monocytes(ab solute) 0.9 x10e3 /uL 0.1-0. 9 Not Available [facility] ([facility]) [address] [place], [address], 05/16/2021 20:07:50 05/14/20 21 05/15/2021 CBC WITH DIFFE RENTI AL/PL ATELE T eos (absolute) 0.2 x10e3 /uL 0.0-0. 4 Not Available [facility] ([facility]) [address] [facility], [place], [address], 05/16/2021 20:07:50 05/14/20 21 05/15/2021 CBC WITH DIFFE RENTI AL/PL ATELE T baso (absolute) 0.0 x10e3 /uL 0.0-0. 2 Not Available [facility] ([facility]) [address] [facility], [place], [address], 05/16/2021 20:07:50 05/14/20 21 05/15/2021 CBC WITH DIFFE RENTI AL/PL ATELE T immature granulocytes 0 % not estab. Not Available [facility] ([facility]) [address] [facility], [place], [address], 05/16/2021 20:07:50 05/14/20 21 05/15/2021 CBC WITH DIFFE RENTI AL/PL ATELE T immature grans (abs) 0.0 x10e3 /uL 0.0-0. 1 Not Available [facility] ([facility]) [address] [facility], [place], [address], 05/16/2021 20:07:50 05/14/20 21 05/15/2021 CBC WITH DIFFE RENTI AL/PL ATELE T NRBC BOOM CONVEYOR OPERATOR Not Available [facility] ([facility]) [address] [place], [address], 05/16/2021 20:07:50 05/14/20 21 05/15/2021 CBC WITH DIFFE RENTI AL/PL ATELE T hematology comments: BOOM CONVEYOR OPERATOR Not Available [facility] ([facility]) [address] [facility], [place], [address], 05/16/2021 20:07:50 05/14/20 21 05/15/2021 COMP. METAB OLIC PANEL (14) glucose 86 mg/dL 65-99 Not Available [facility] ([facility]) [address] [facility], [place], [address], 05/16/2021 20:07:50 05/14/20 21 05/15/2021 COMP. METAB OLIC PANEL (14) BUN 6 mg/dL 6-20 Not Available [facility] ([facility]) [address] [place], [address], 05/16/2021 20:07:50 05/14/20 21 05/15/2021 COMP. METAB OLIC PANEL (14) creatinine 0.82 mg/dL 0.57-1 .00 Not Available [facility] ([facility]) [address] [place], [address], 05/16/2021 20:07:50 05/14/20 21 05/15/2021 COMP. METAB OLIC PANEL (14) eGFR if nonafricn AM 100 mL/mi n/1.7 3 >59 Not Available [facility] ([facility]) [address] [facility], [place], [address], 05/16/2021 20:07:50 05/14/20 21 05/15/2021 COMP. METAB OLIC PANEL (14) eGFR if africn AM 116 mL/mi n/1.7 3 >59 In accor dance with recom menda tions from the NKF-A SN Task force , [facility] is in the proce ss of updat ing its eGFR calcu latio n to the 2020 CKD-E PI creat inine equat ion that estim ates kidne y funct ion witho ut a race varia ble. Not Available [facility] ([facility]) [address] [place], [address], 05/16/2021 20:07:50 05/14/20 21 05/15/2021 COMP. METAB OLIC PANEL (14) BUN/creatini ne ratio 7 9-23 below low normal Not Available [facility] ([facility]) [address] [place], [address], 05/16/2021 20:07:50 05/14/20 21 05/15/2021 COMP. METAB OLIC PANEL (14) sodium 139 mmol/ L 134-14 4 Not Available [facility] ([facility]) [address] [facility], [place], [address], 05/16/2021 20:07:50 05/14/20 21 05/15/2021 COMP. METAB OLIC PANEL (14) potassium 4.0 mmol/ L 3.5-5. 2 Not Available [facility] ([facility]) [address] [place], [address], 05/16/2021 20:07:50 05/14/20 21 05/15/2021 COMP. METAB OLIC PANEL (14) chloride 105 mmol/ L 96-106 Not Available [facility] ([facility]) [address] [place], [address], 05/16/2021 20:07:50 05/14/20 21 05/15/2021 COMP. METAB OLIC PANEL (14) carbon dioxide, total 21 mmol/ L 20-29 Not Available [facility] ([facility]) [address] [place], [address], 05/16/2021 20:07:50 05/14/20 21 05/15/2021 COMP. METAB OLIC PANEL (14) calcium 8.9 mg/dL 8.7-10 .2 Not Available [facility] ([facility]) [address] [place], [address], 05/16/2021 20:07:50 05/14/20 21 05/15/2021 COMP. METAB OLIC PANEL (14) protein, total 6.8 g/dL 6.0-8. 5 Not Available [facility] ([facility]) [address] [place], [address], 05/16/2021 20:07:50 05/14/20 21 05/15/2021 COMP. METAB OLIC PANEL (14) albumin 4.0 g/dL 3.9-5. 0 Not Available [facility] ([facility]) [address] [facility], [place], [address], 05/16/2021 20:07:50 05/14/20 21 05/15/2021 COMP. METAB OLIC PANEL (14) globulin, total 2.8 g/dL 1.5-4. 5 Not Available [facility] ([facility]) [address] [facility], [place], [address], 05/16/2021 20:07:50 05/14/20 21 05/15/2021 COMP. METAB OLIC PANEL (14) A/G ratio 1.4 1.2-2. 2 Not Available [facility] ([facility]) [address] [facility], [place], [address], 05/16/2021 20:07:50 05/14/20 21 05/15/2021 COMP. METAB OLIC PANEL (14) bilirubin, total 0.2 mg/dL 0.0-1. 2 Not Available [facility] ([facility]) [address] [facility], [place], [address], 05/16/2021 20:07:50 05/14/20 21 05/15/2021 COMP. METAB OLIC PANEL (14) alkaline phosphatase 65 IU/L 44-121 Ple ase note refer ence inter navya carolina e Not Available [facility] ([facility]) [address] [facility], [place], [address], 05/16/2021 20:07:50 05/14/20 21 05/15/2021 COMP. METAB OLIC PANEL (14) AST (SGOT) 16 IU/L 0-40 Not Available [facility] ([facility]) [address] [facility], [place], [address], 05/16/2021 20:07:50 05/14/20 21 05/15/2021 COMP. METAB OLIC PANEL (14) ALT (SGPT) 14 IU/L 0-32 Not Available [facility] ([facility]) [address] [facility], [place], [address], 05/16/2021 20:07:50 05/14/20 21 05/15/2021 LIPID PANEL cholesterol, total 146 mg/dL 100-19 9 Not Available [facility] ([facility]) [address] [place], [address], 05/16/2021 20:07:51 05/14/20 21 05/15/2021 LIPID PANEL triglyceride s 70 mg/dL 0-149 Not Available [facility] ([facility]) [address] [place], [address], 05/16/2021 20:07:51 05/14/20 21 05/15/2021 LIPID PANEL HDL cholesterol 44 mg/dL >39 Not Available [facility]) [address] [facility], [place], [address], 05/16/2021 20:07:51 05/14/20 21 05/15/2021 LIPID PANEL VLDL cholesterol keely 14 mg/dL 5-40 Not Available [facility] ([facility]) [address] [place], [address], 05/16/2021 20:07:51 05/14/20 21 05/15/2021 LIPID PANEL LDL chol calc ([facility]) 88 mg/dL 0-99 Not Available [facility]) [address] [facility], [place], [address], 05/16/2021 20:07:51 05/14/20 21 05/15/2021 LIPID PANEL comment: BOOM CONVEYOR OPERATOR Not Available [facility] ([facility]) [address] [place], [address], 05/16/2021 20:07:51 05/14/20 21 05/16/2021 CT, NG, TRICH VAG BY MACK chlamydia by MACK Negati ve negati ve Not Available [facility] ([facility]) [address] [place], [address], 05/16/2021 20:07:52 05/14/20 21 05/16/2021 CT, NG, TRICH VAG BY MACK gonococcus by MACK Negati ve negati ve Not Available [facility] ([facility]) [address] [place], [address], 05/16/2021 20:07:52 05/14/20 21 05/16/2021 CT, NG, TRICH VAG BY MACK trich vag by MACK Negati ve negati ve Not Available [facility] ([facility]) [address] [place], [address], 05/16/2021 20:07:52 05/14/2005/15/2021 HCV ANTIB JODI RFX TO QUANT PCR HCV Ab <0.1 s/co_ ratio 0.0-0. 9 Not Available [facility] ([facility]) [address] [place], [address], 05/16/2021 20:07:52 05/14/2005/15/2021 HCV ANTIB JODI RFX TO QUANT PCR interpretati on: Commen t Negat elizabeth Not infec sue with HCV, unles s recen t infec tion is suspe cted or other evide nce exist s to indic ate HCV infec tion. Not Available [facility] ([facility]) [address] [place], [address], 05/16/2021 20:07:52 05/14/2005/15/2021 HEMOG LOBIN A1C hemoglobin A1C 5.9 % 4.8-5. 6 above high normal Predi abete s: 5.7 - 6.4 Diabe jenny: >6.4 Glyce jade contr ol for adult s with diabe jenny: <7.0 Not Available [facility] ([facility]) [address] [facility], [place], [address], 05/16/2021 20:07:53 05/14/20 21 05/15/2021 RPR, RFX QN RPR/C ONFIR M TP RPR Non Reacti ve non reacti ve Not Available [facility] ([facility]) [address] [facility], [place], [address], 05/16/2021 20:07:53 05/14/20 21 05/15/2021 HIV AG/AB WITH REFLE X HIV screen 4TH generation wrfx Non Reacti ve non reacti ve Not Available [facility] ([facility]) [address] [facility], [place], [address], 05/16/2021 20:07:54 05/14/20 21 05/15/2021 TSH RFX ON ABNOR MAL TO FREE T4 TSH 4.020 uIU/m L 0.450- 4.500 Not Available [facility] ([facility]) [address] [facility], [place], [address], 05/16/2021 20:07:54 08/12/19 23 08/12/2022 urina lysis , dipst ick Leukocytes Small Not Available In-Offi ce Order Internal Use Only DO Not Attach Compendium DO Not Attach Compendium, Do Not Delete/merge, [id number] 08/12/2022 16:11:57 08/12/19 23 08/12/2022 urina lysis , dipst ick Nitrite negati ve Not Available In-Office Order Internal Use Only DO Not Attach Compendium DO Not Attach Compendium, Do Not Delete/merge, [id number] 08/12/2022 16:11:57 08/12/19 23 08/12/2022 urina lysis , dipst ick Urobilinogen .2 Not Available In-Of fice Order Internal Use Only DO Not Attach Compendium DO Not Attach Compendium, Do Not Delete/merge, [id number] 08/12/2022 16:11:57 08/12/19 23 08/12/2022 urina lysis , dipst ick Protein Negati ve Not Available In-Office Order Internal Use Only DO Not Attach Compendium DO Not Attach Compendium, Do Not Delete/merge, 08/12/2022 16:11:57 08/12/19 23 08/12/2022 urina lysis , dipst ick pH 6.5 Not Available In-Office Order Internal Use Only DO Not Attach Compendium DO Not Attach Compendium, Do Not Delete/merge, 08/12/2022 16:11:57 08/12/19 23 08/12/2022 urina lysis , dipst ick Blood Large Not Available In-Office Order Internal Use Only DO Not Attach Compendium DO Not Attach Compendium, Do Not Delete/merge, 08/12/2022 16:11:57 08/12/19 23 08/12/2022 urina lysis , dipst ick Specific [place] 1.025 Not Available In-Off ice Order Internal Use Only DO Not Attach Compendium DO Not Attach Compendium, Do Not Delete/merge, 08/12/2022 16:11:57 08/12/19 23 08/12/2022 urina lysis , dipst ick Ketone Negati ve Not Available In-Office Order Internal Use Only DO Not Attach Compendium DO Not Attach Compendium, Do Not Delete/merge, 08/12/2022 16:11:57 08/12/19 23 08/12/2022 urina lysis , dipst ick Bilirubin Negati ve Not Available In-Office Order Internal Use Only DO Not Attach Compendium DO Not Attach Compendium, Do Not Delete/merge, 08/12/2022 16:11:57 08/12/19 23 08/12/2022 urina lysis , dipst ick Glucose Negati ve Not Available In-Office Order Internal Use Only DO Not Attach Compendium DO Not Attach Compendium, Do Not Delete/merge, 08/12/2022 16:11:57 08/12/19 23 08/12/2022 urina lysis , dipst ick Appearance Cloudy Not Available In-Offi ce Order Internal Use Only DO Not Attach Compendium DO Not Attach Compendium, Do Not Delete/merge, 08/12/2023 16:11:57 08/12/19 23 08/12/2022 urina lysis , dipst ick Color Yellow Not Available In-Office Order Internal Use Only DO Not Attach Compendium DO Not Attach Compendium, Do Not Delete/merge, [id number] 08/12/2022 16:11:57 11/12/19 23 11/11/2022 LIPID PANEL cholesterol, total 172.0 mg/dL 140.0- 200.0 Not Available [facility] Department [address] [place] [address], [address], 11/11/2022 19:09:28 11/12/1911/11/2022 LIPID PANEL triglyceride s 97 mg/dL <=150 Not Available [facility] Department [address] [place] [address], [address], 11/11/2022 19:09:28 11/12/1911/11/2022 LIPID PANEL HDL cholesterol 43.2 mg/dL 40.0-1 00.0 Not Available [facility] Department [address] [place], [address], 11/11/2022 19:09:28 11/12/1911/11/2022 LIPID PANEL VLDL cholesterol keely 19.40 mg/dL 5.00-4 0.00 Not Available [facility] Department [address] [place] [address], [address], 11/11/2022 19:09:28 11/12/19 23 11/11/2022 LIPID PANEL LDL chol calc ([facility]) 110.9 mg/dL 0.0-99 .0 above high normal Not Available [facility] [address] [place], [address], 11/11/2022 19:09:28 11/12/1911/11/2022 COMP. METAB OLIC PANEL (14) glucose 90 mg/dL 65-99 ANION GP 13.0 mmol/ L N OSMOL 282.0 mOsM/ L N REFER ENCE RANGE : 275.0 -301. 0 Not Available [facility] Department [address] [place], [address], 11/11/2022 19:09:29 11/12/19 23 11/11/2022 COMP. METAB OLIC PANEL (14) BUN 11 mg/dL 8-26 Not Available [facility] Department [address] [place], [address], 11/11/2022 19:09:29 11/12/19 23 11/11/2022 COMP. METAB OLIC PANEL (14) creatinine 0.88 mg/dL 0.50-1 .40 Not Available [facility] Department [address] [place], [address], 11/11/2022 19:09:29 11/12/19 23 11/11/2022 COMP. METAB OLIC PANEL (14) eGFR 93 mL/mi n/1.7 3 >=60 Not Available [facility] Department [address] [place], [address], 11/11/2022 19:09:29 11/12/19 23 11/11/2022 COMP. METAB OLIC PANEL (14) BUN/creatini ne ratio 12.6 Not Available [facility] Department [address] [place], [address], 11/11/2022 19:09:29 11/12/19 23 11/11/2022 COMP. METAB OLIC PANEL (14) sodium 142.0 mmol/ L 136.0- 144.0 Not Available [facility] Department [address] [place], [address], 11/11/2022 19:09:29 11/12/19 23 11/11/2022 COMP. METAB OLIC PANEL (14) potassium 4.4 mmol/ L 3.5-5. 3 Not Available [facility] Department [address] [place], [address], 11/11/2022 19:09:29 11/12/19 23 11/11/2022 COMP. METAB OLIC PANEL (14) chloride 107 mmol/ l 101-11 1 Not Available [facility] Department [address] [place], [address], 11/11/2022 19:09:29 11/12/19 23 11/11/2022 COMP. METAB OLIC PANEL (14) carbon dioxide, total 26.5 mmol/ L 21.0-3 2.0 Not Available [facility] Department [address] [place], [address], 11/11/2022 19:09:29 11/12/19 23 11/11/2022 COMP. METAB OLIC PANEL (14) calcium 9.4 mg/dL 8.2-10 .0 Not Available [facility] Department [address] [place] [address], [address], 11/11/2022 19:09:29 11/12/19 23 11/11/2022 COMP. METAB OLIC PANEL (14) protein, total 7.0 g/dL 6.7-8. 2 Not Available [facility] Department [address] [place], [address], 11/11/2022 19:09:29 11/12/19 23 11/11/2022 COMP. METAB OLIC PANEL (14) albumin 4.0 g/dL 3.5-5. 5 Not Available [facility] Department [address] [place], [address], 11/11/2022 19:09:29 11/12/19 23 11/11/2022 COMP. METAB OLIC PANEL (14) globulin, total 3.0 g/dL 1.5-4. 5 Not Available [facility] Department [address] [place], [address], 11/11/2022 19:09:29 11/12/19 23 11/11/2022 COMP. METAB OLIC PANEL (14) A/G ratio 1.4 Not Available [facility] Department [address] [place] [address], [address], 11/11/2022 19:09:29 11/12/19 23 11/11/2022 COMP. METAB OLIC PANEL (14) bilirubin, total 0.2 mg/dL 0.0-1. 2 Not Available [facility] Department [address] [place], [address], 11/11/2022 19:09:29 11/12/19 23 11/11/2022 COMP. METAB OLIC PANEL (14) alkaline phosphatase 75.1 IU/L 42.0-1 21.0 Not Available [facility] Department [address] [place], [address], 11/11/2022 19:09:29 11/12/19 23 11/11/2022 COMP. METAB OLIC PANEL (14) AST (SGOT) 17.2 U/L 10.0-4 2.0 Not Available [facility] Department [address] [place], [address], 11/11/2022 19:09:29 11/12/19 23 11/11/2022 COMP. METAB OLIC PANEL (14) ALT (SGPT) 18.8 U/L 10.0-6 0.0 Not Available [facility] Department [address] [place], [address], 11/11/2022 19:09:29 11/12/1911/11/2022 HEMOG LOBIN A1C hemoglobin A1C 5.9 % 4.8-5. 6 above high normal Predi abete s: 5.7 - 6.4 Diabe jenny: >6.4 Glyce jade contr ol for adult s with diabe jenny: <7.0 Not Available [facility] ([facility]) [address], [place], [address], 11/12/2022 00:07:17 11/12/19 23 11/12/2022 ACUTE HEPAT ITIS hep A Ab, IgM Negati ve negati ve Not Available [facility] ([facility]) [address] [place], [address], 11/13/2022 21:08:07 11/12/19 23 11/12/2022 ACUTE HEPAT ITIS HBsAg screen Negati ve negati ve Not Available [facility] ([facility]) [address] [place], [address], 11/13/2022 21:08:07 11/12/19 23 11/12/2022 ACUTE HEPAT ITIS hep B core Ab, IgM Negati ve negati ve Not Available [facility] ([facility]) [address] [place], [address], 11/13/2022 21:08:07 11/12/19 23 11/12/2022 ACUTE HEPAT ITIS HCV Ab Non Reacti ve nonrea ctive Not Available [facility] ([facility]) [address] [place], [address], 11/13/2022 21:08:07 11/12/19 23 11/12/2022 CT, NG, TRICH VAG BY MACK trich vag by MACK Negati ve negati ve Not Available [facility] ([facility]) [address] [place], [address], 11/13/2022 21:08:09 11/12/19 23 11/13/2022 CT, NG, TRICH VAG BY MACK chlamydia by MACK Positi ve negati ve abnormal Not Available [facility] ([facility]) [address] [place], [address], 11/13/2022 21:08:09 11/12/19 23 11/13/2022 CT, NG, TRICH VAG BY MACK gonococcus by MACK Negati ve negati ve Not Available [facility] ([facility]) [address] [place], [address], 11/13/2022 21:08:09 11/12/19 23 11/12/2022 RPR, RFX QN RPR/C ONFIR M TP RPR Non Reacti ve nonrea ctive Not Available [facility] ([facility]) [address], [place], [address], 11/13/2022 21:08:09 11/12/19 23 11/12/2022 HIV AB/P2 4 AG WITH REFLE X HIV Ab/P24 Ag screen Non Reacti ve nonrea ctive HIV Negat elizabeth HIV-1 /HIV- 2 antib odies and HIV-1 p24 antig en were NOT detec sue. There is no labor atory evide nce of HIV infec tion. Not Available [facility] ([facility]) [address], [place], [address], 11/13/2022 21:08:10 11/12/1911/12/2022 INTER PRETA TION: interpretati on: Commen t Not infec sue with HCV unles s early or acute infec tion is suspe cted (whic h may be delay ed in an immun ocomp romis ed indiv idual ), or other evide nce exist s to indic ate HCV infec tion. Not Available [facility] ([facility]) [address], [place], [address], 11/13/2022 21:08:08 05/15/2005/16/2024 HCV ANTIB JODI hep C virus Ab - Dupli meghan proce dure order ed. HCV antib jodi alone does not diffe renti ate betwe en previ ously resol sharona infec tion and activ e infec tion. Equiv ocal and React elizabeth HCV antib jodi resul ts shoul d be follo wed up with an HCV RNA test to suppo rt the diagn osis of activ e HCV infec tion. Not Available [facility] ([facility]) [address], [place], [address], 05/18/2024 06:21:02 05/15/20 24 05/17/2024 INTER PRETA TION: interpretati on: Commen t Not infec sue with HCV unles s early or acute infec tion is suspe cted (whic h may be delay ed in an immun ocomp romis ed indiv idual ), or other evide nce exist s to indic ate HCV infec tion. Not Available [facility] ([facility]) [address], [place], [address], 05/18/2024 06:21:03 05/15/20 24 05/16/2024 HAV, HBV, HCV interpretati on COMMEN T HBV Serol ogy Inter preta tion Chart ----- ----- ----- ----- ----- ----- ----- ----- ----- ----- ----- ----- ----- -- Inter preta tion HBsAg anti- HBs anti- HBc anti- HBc IgM ----- ----- ----- ----- ----- ----- ----- ----- ----- ----- ----- ----- ----- -- Bedolla - Angie te prese nt: + Angie te absen t: - Test not indic ated: TNI ----- ----- ----- ----- ----- ----- ----- ----- ----- ----- ----- ----- ----- -- Susce ptibl e (neve r infec sue and no evide nce - - - TNI of vacci natio n) ----- ----- ----- ----- ----- ----- ----- ----- ----- ----- ----- ----- ----- -- Immun e due to natur al resol sharona infec tion - + + TNI ----- ----- ----- ----- ----- ----- ----- ----- ----- ----- ----- ----- ----- -- Immun e due to vacci natio n - + - TNI ----- ----- ----- ----- ----- ----- ----- ----- ----- ----- ----- ----- ----- -- Acute Infec tion + - + + ----- ----- ----- ----- ----- ----- ----- ----- ----- ----- ----- ----- ----- -- Chron ic infec tion + - + - ----- ----- ----- ----- ----- ----- ----- ----- ----- ----- ----- ----- ----- -- Inter preta tion uncle ar* - - + +/- ----- ----- ----- ----- ----- ----- ----- ----- ----- ----- ----- ----- ----- -- *Mult iple possi bilit ies: resol sharona infec tion (most commo n); false - posit elizabeth anti- HBc ([facility] eptib le); low- level chron ic infec tion ; resol ving acute infec tion. Not Available [facility] ([facility]) [address], [place], [address], 05/18/2024 06:21:03 05/15/2005/17/2024 HAV, HBV, HCV hep A Ab, total POSITI VE negati ve abnormal Comme nt: The HAV total antib jodi assay detec ts both IgG and IgM but does not diffe renti ate betwe en them. A negat elizabeth resul t sugge sts susce ptibi lity to infec tion. A posit elizabeth resul t could be due to vacci natio n, previ ously resol sharona infec tion or activ e infec tion. Testi ng for HAV IgM shoul d be perfo rmed if activ e HAV infec tion is suspe cted. [facility] offer s profi les that will autom atica lly refle x posit elizabeth HAV total antib jodi resul ts to IgM (e.g. , panel #[id number] HAV Antib jodi w/ Rfx). Not Available [facility] ([facility]) [address] [place], [address], 05/18/2024 06:21:03 05/15/20 24 05/17/2024 HAV, HBV, HCV HBsAg screen NEGATI VE negati ve Not Available [facility] ([facility]) [address], [place], [address], 05/18/2024 06:21:03 05/15/2005/17/2024 HAV, HBV, HCV hep B surface Ab, qual NON REACTI VE Non React elizabeth: Not immun e to HBV infec tion. Equiv ocal: Unabl e to deter mine if anti- HBs is prese nt at level s consi stent with immun ity. React elizabeth: Anti- HBs mary ntrat ion detec sue at great er than 10 mIU/m L. Indiv idual is consi dered to be immun e to infec tion with HBV. Not Available [facility] ([facility]) [address], [place], [address], 05/18/2024 06:21:03 05/15/20 24 05/17/2024 HAV, HBV, HCV hep B core Ab, tot NEGATI VE negati ve Not Available [facility] ([facility]) [address] [place], [address], 05/18/2024 06:21:03 05/15/2005/17/2024 HAV, HBV, HCV rfx to hbc IgM COMMEN T Refle x crite belen was not met. Not Available [facility] ([facility]) [address] [place], [address], 05/18/2024 06:21:03 05/15/2005/17/2024 HAV, HBV, HCV HCV Ab NON REACTI VE nonrea ctive Not Available [facility] ([facility]) [address] [place], [address], 05/18/2024 06:21:03 05/15/2005/18/2024 CT, NG, TRICH VAG BY MACK chlamydia by MACK NEGATI VE negati ve Not Available [facility] ([facility]) [address] [place], [address], 05/18/2024 06:21:04 05/15/2005/18/2024 CT, NG, TRICH VAG BY MACK gonococcus by MACK NEGATI VE negati ve Not Available [facility] ([facility]) [address] [place], [address], 05/18/2024 06:21:04 05/15/2005/18/2024 CT, NG, TRICH VAG BY MACK trich vag by MACK NEGATI VE negati ve Not Available [facility] ([facility]) [address] [place], [address], 05/18/2024 06:21:04 05/15/2005/17/2024 TSH+F REE T4 TSH 2.580 uIU/m L 0.450- 4.500 Not Available [facility] ([facility]) [address] [place], [address], 05/18/2024 06:21:05 05/15/2005/17/2024 TSH+F REE T4 T4,free(dire ct) 1.17 NG/dL 0.82-1 .77 Not Available [facility] ([facility]) [address] [place], [address], 05/18/2024 06:21:05 05/15/2005/17/2024 LIPID PANEL cholesterol, total 140 mg/dL 100-19 9 Not Available [facility] ([facility]) [address] [place], [address], 05/18/2024 06:21:06 05/15/2005/17/2024 LIPID PANEL triglyceride s 61 mg/dL 0-149 Not Available [facility] ([facility]) [address] [place], [address], 05/18/2024 06:21:06 05/15/2005/17/2024 LIPID PANEL HDL cholesterol 50 mg/dL >39 Not Available [facility] ([facility]) [address] [place], [address], 05/18/2024 06:21:06 05/15/2005/17/2024 LIPID PANEL VLDL cholesterol keely 13 mg/dL 5-40 Not Available [facility] ([facility]) [address] [place], [address], 05/18/2024 06:21:06 05/15/2005/17/2024 LIPID PANEL LDL chol calc ([facility]) 77 mg/dL 0-99 Not Available [facility] ([facility]) [address] [place], [address], 05/18/2024 06:21:06 05/15/2005/17/2024 HEMOG LOBIN A1C hemoglobin A1C 5.8 % 4.8-5. 6 above high normal Predi abete s: 5.7 - 6.4 Diabe jenny: >6.4 Glyce jade contr ol for adult s with diabe jenny: <7.0 Not Available [facility] ([facility]) [address], [place], [address], 05/18/2024 06:21:07 05/15/2005/17/2024 HEP A AB, IGM hep A Ab, IgM Negati ve negati ve A negat elizabeth anti- HAV IgM resul t sugge sts no recen t or curre nt HAV infec tion. Not Available [facility] ([facility]) [address], [place], [address], 05/18/2024 06:21:08 05/15/2005/17/2024 RPR, RFX QN RPR/C ONFIR M TP RPR NON REACTI VE nonrea ctive Not Available [facility] ([facility]) [address], [place], [address], 05/18/2024 06:21:08 05/15/2005/17/2024 HIV AB/P2 4 AG WITH REFLE X HIV Ab/P24 Ag screen NON REACTI VE nonrea ctive HIV-1 /HIV- 2 antib odies and HIV-1 p24 antig en were NOT detec sue. There is no labor atory evide nce of HIV infec tion. HIV Negat elizabeth Not Available [facility] ([facility]) [address], [place], [address], 05/18/2024 06:21:09 05/23/2005/23/2021 US, thyro id No observ ation record ed. [email or web address] [facility] [address], [place], [address], 05/26/2021 12:41:14 Result Notes None recorded. Problems Name Problem SNOMED Code Status Onset Date Resolution Date Notes Provider Name and Address Organization Details Recorded Time Obese 271509302 Active Callie De Oliveira MD Attn: Accountin g,[address] [facility], [place], [address], [place] - [facility] 6 16:12:43 Goiter 2754149 Active 2023 MEREDITH PARRA Attn: Nimisha yang,[address] [place], [address], [place] [facility] 4 13:53:53 Obesity 518358565 Active 2023 MEREDITH PARRA Attn: Alfajudd yang,[address] [place], [address], [place] [facility] 4 13:53:55 Vaginal discharge 704947126 Active 2014 Callie De Oliveira MD Attn: Nimisha yang,[address] [place], [address], [facility] - [facility] 6 16:28:46 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 Active Callie De Oliveira MD Attn: Nimisha yang,[address] [place], [address], [place] [facility] 6 16:12:43 Harmful pattern of use of cannabis 96374968 Active Callie De Oliveira MD Attn: Nimisha yang,[address] [place], [address], [place] - [facility] 6 16:12:43 Bacterial vaginosis 587591566 Completed 01/21/2016 Callie De Oliveira MD Attn: Nimisha yang,[address] [place], [address], [place] [facility] 6 16:12:44 Candidal vulvovagini tis 28480749 Completed 01/21/2016 Callie De Oliveira MD Attn: Nimisha yang,[address] [place], [address], [place] [facility] 6 16:12:44 Gonorrhea 83657124 Completed 01/21/2016 Callie De Oliveira MD Attn: Nimisha yang,[address] [place], [address], [place] [facility] 6 16:12:44 Chlamydial infection 238363753 Completed 01/21/2016 Callie De Oliveira MD Attn: Nimisha yang,[address] [facility], [place], [address], [facility] 6 16:12:44 Chlamydial infection 095378972 Active Callie De Oliveira MD Attn: Nimisha g,[address] [facility], [place], [address], [facility] 6 13:23:43 Problem Notes None recorded. Procedures Surgical History Date Name Laterality Status Provider Name and Address Organization Details Recorded Time 4 Breast reduction completed MEREDITH PARRA Attn: Accounting, [place], [address], [facility] 05/15/2024 16:53:23 3 Date of Last Pap Smear completed Regina Jada [facility] 08/12/2022 15:31:02 Imaging Results None recorded. Procedure Notes None recorded. Medical Equipment None Reported. Allergies Allergen ID Allergen Name Allergen Category Reaction Reaction Severity Criticality Documentation Date Start Date Code Code System Note Provider Name and Address Organization Details Recorded Time 190511 aspirin medicatio n respirato ry distress Not available Not available 08/12/2022 1191 RxNorm SOB, overh eat, nause a, abdom inal cramp s Regina vega, [facility] 3 15:27:43 Medications Name Sig Start Date Stop Date Status Note LastModified by Organization Details LastModified Time eq sinus 12-hour 120mg tab TAKE 1 TABLET BY MOUTH EVERY 12 HOURS NEEDED FOR NASAL CONGESTI ON 05/15 completed Not Available Not Available Not Available nifedipin e ER 30 mg tablet,ex tended release 24 hr TAKE 1 TABLET BY MOUTH ONCE DAILY 08/12 completed Not Available Not Available Not Available cyclobenz aprine 10 mg tablet Take 1 tablet twice a day by oral route as needed for 10 days. 05/03 completed Not Available Not Available Not Available amoxicill in 500 mg capsule 05/14 completed Not Available Not Available Not Available Lidocaine Viscous 2 % mucosal solution 05/14 completed Not Available Not Available Not Available fluconazo le 150 mg tablet Take 150 mg by oral route. 05/14 completed Not Available Not Available Not Available valacyclo vir 1 gram tablet Take 2 tablet(s ) every 12 hours by oral route for 1 day. 2024 active Not Available Not Available Not Avai lable hydrocodo ne 5 mg-acetam inophen 325 mg tablet TAKE 1 TABLET BY MOUTH EVERY 6 HOURS NEEDED FOR PAIN 05/15 completed Not Available Not Available Not Available prochlorp erazine maleate 5 mg tablet TAKE 1 TABLET BY MOUTH EVERY 6 HOURS NEEDED FOR NAUSEA AND VOMITING 08/12 completed Not Available Not Available Not Available ondansetr on HCl 8 mg tablet TAKE 1 TABLET BY MOUTH TWICE A DAY FOR NAUSEA active Not Available Not Available No t Available metronida zole 0.75 % (37.5 mg/5 gram) vaginal gel Insert 1 applicat orful every day by vaginal route at bedtime for 5 days. 05/14 completed Not Available Not Available Not Available ceftriaxo ne 250 mg solution for injection 2014 active Not Available Not Available Not Avai lable metronida zole 250 mg tablet Take 1 tablet 3 times a day by oral route with meals for 7 days. 05/14 completed Not Available Not Available Not Available metronida zole 500 mg tablet Take 1 tablet every 12 hours by oral route for 7 days. 05/15 completed Not Available Not Available Not Available acyclovir 400 mg tablet Take 1 tablet twice a day by oral route with meals for 30 days. 05/14 completed Not Available Not Available Not Available valacyclo vir 500 mg tablet 05/15 completed Not Available Not Available Not Available ciproflox acin 500 mg tablet TAKE 1 TABLET BY MOUTH EVERY 12 HOURS 08/12 completed Not Available Not Available Not Available Condoms-P rem Lubricate d Take 1 device as needed by miscell. route as directed for 15 days. 05/14 completed Not Available Not Available Not Available Depo-Prov era 150 mg/mL intramusc ular suspensio n Inject 1 mL every 3 months by intramus cular route. 2012 active Not Available Not Available Not Avai lable DOK 100 mg capsule 05/14 completed Not Available Not Available Not Available cephalexi n 500 mg capsule TAKE 1 CAPSULE BY MOUTH EVERY 8 HOURS 05/15 completed Not Available Not Available Not Available erythromy odessa 5 mg/gram (0.5 %) eye ointment active Not Available Not Available Not Available hyoscyami ne sulfate 0.125 mg tablet TAKE 2 TABLETS BY MOUTH 4 TIMES DAILY NEEDED FOR ABDOMINA L CRAMPING 08/12 completed Not Available Not Available Not Available misoprost ol 200 mcg tablet TAKE 4 TABLETS BY MOUTH DIRECTED 05/15 completed Not Available Not Available Not Available ibuprofen 200 mg tablet TAKE 4 TABLETS BY MOUTH EVERY 8 HOURS NEEDED FOR PAIN 05/15 completed Not Available Not Available Not Available ibuprofen 600 mg tablet active Not Available Not Available Not Available ferrous sulfate 325 mg (65 mg iron) tablet,de layed release TAKE 1 TABLET BY MOUTH ONCE DAILY 08/12 completed Not Available Not Available Not Available Mifeprex 200 mg tablet TAKE 1 TABLET BY MOUTH DIRECTED active Not Available Not Available No t Available fluticaso ne propionat e 50 mcg/actua tion nasal spray,pablito pension USE 2 SPRAY(S) IN EACH NOSTRIL ONCE DAILY FOR 14 DAYS 05/15 completed Not Available Not Available Not Available sertralin e 50 mg tablet Take 1 tablet every day by oral route. 05/15 completed Not Available Not Available Not Available doxycycli ne hyclate 100 mg tablet Take 1 tablet twice a day by oral route for 7 days. 05/03 completed Not Available Not Available Not Available amoxicill in 875 mg-potass ium clavulana te 125 mg tablet TAKE 1 TABLET BY MOUTH EVERY 12 HOURS FOR 10 DAYS 10/15 completed Not Available Not Available Not Available azithromy odessa 500 mg tablet Take 2 tablets as needed by oral route before meals for 1 day. 05/14 completed Not Available Not Available Not Available Sprintec (28) 0.25 mg-0.035 mg tablet TAKE 1 TABLET BY MOUTH ONCE DAILY 05/15 completed Not Available Not Available Not Available Suprax 400 mg capsule Take 1 capsule as needed by oral route as directed for 1 day. 05/25 completed Parent, Sita, given results- instr to call back if rx not covered on insuranc e Not Available Not Available Not Available Vitals Date Recorded Body height Body mass index (BMI) Body weight Body temperature Heart rate Oxygen saturation Oxygen saturation in Arterial blood by Pulse oximetry Systolic And Diastolic Provider Name and Address Organization Details Last Updated DateTime 3 172.09 cm 36.9 kg/m2 710351. 76 g 97.6 [degF] 89 /min 98 % 98 % 116/78 mm[Hg] Ghada Barnes MA [facility] 3 15:11:35 Date Recorded Body mass index (BMI) Body weight Provider Name and Address Organization Details Last Updated DateTime 08/27/2022 36.9 kg/m2 754716.76 g LEVY Lubin Attn: Accounting,[address] [place], [address], [facility] 08/27/2022 12:21:06 Date Recorded Body height Body temperature Heart rate Oxygen saturation Oxygen saturation in Arterial blood by Pulse oximetry Systolic And Diastolic Provider Name and Address Organization Details Last Updated DateTime 3 172.09 cm 97.1 [degF] 75 /min 98 % 98 % 122/80 mm[Hg] Kandace Carlton MA [facility] 3 11:07:38 Date Recorded Body height Body mass index (BMI) Body weight Body temperature Heart rate Oxygen saturation Oxygen saturation in Arterial blood by Pulse oximetry Systolic And Diastolic Provider Name and Address Organization Details Last Updated DateTime 3 172.09 cm 36.5 kg/m2 477098. 98 g 97.2 [degF] 65 /min 98 % 98 % 131/87 mm[Hg] Lamar Alvarenga [facility] 3 09:59:53 Date Recorded Body height Body mass index (BMI) Body weight Heart rate Oxygen saturation Oxygen saturation in Arterial blood by Pulse oximetry Systolic And Diastolic Provider Name and Address Organization Details Last Updated DateTime 1 172.09 cm 36 kg/m2 564335. 91 g 73 /min 94 % 94 % 112/70 mm[Hg] Mattie Rosa MA [facility] 1 11:50:26 Date Recorded Body mass index (BMI) Body weight Systolic And Diastolic Provider Name and Address Organization Details Last Updated DateTime 05/15/2024 34.6 kg/m2 628071.88 g 130/80 mm[Hg] MEREDITH PARRA Attn: Accounting,[address] [place], [address], [place] [facility] 05/16/2024 13:54:10 Date Recorded Body height Provider Name an d Address Organization Details Last Updated DateTime 05/15/2024 172.09 cm Mattie Rosa MA [place] [facility] 2023 16:37:43 Social History Question Answer Notes LastModified by Organizat ion Details LastModified Time Tobacco Smoking Status Never Smoker MEREDITH PARRA Attn: Accounting,[address] [place], [address], [facility] - [facility] 05/15/2024 17:05:36 Animal Exposure? Yes Informat ion not available 05/16/2014 Do You Wear A Helmet When Biking? No Information not available 05/16/2014 What Is Your Level Of Caffeine Consumption? Heavy Information not available 05/16/2014 How Much Tobacco Do You Chew? None Information not available 05/16/2014 What Type Of Diet Are You Following? REGULAR Information not available 05/16/2014 Which Illicit Or Recreational Drugs Have You Used? Marijuana Information not available 05/16/2014 What Is The Fluoride Status Of Your Home? Fluoridated Information not available 05/16/2014 Are There Any Guns Present In Your Home? No Information not available 05/16/2014 What Is Your Home Situation? Mother Information not available 05/16/2014 Parent Involvement? Dad Not Invloved Information not available 05/16/2014 Mosquito Repellent Used Routinely Yes Information not available 05/16/2014 What Was The Date Of Your Most Recent Tobacco Screening? 08/12/2022 Information not available 08/12/2022 What Is Your Parents' Marital Status? Unmarried Information not available 05/16/2014 Pool Exposure Yes Information not available 05/16/2014 Do You Use Protection During Sex? Usually Information not available 05/16/2014 What Is The Name Of Your School? [employer] Information not available 05/16/2014 Do You Use Your Seat Belt Or Car Seat Routinely? Yes Information not available 05/16/2014 Are You Sexually Active? Yes Information not available 05/16/2014 Number Of Sexual Partners 1 Information not available 05/16/2014 Do You Have Any Siblings? 3 Information not available 05/16/2014 Do You Have Smoke And Carbon Monoxide Detectors In Your Home? Yes Information not available 05/16/2014 Are You Passively Exposed To Smoke? Yes Information not available 05/16/2014 What Types Of Sporting Activities Do You Participate In? None Information not available 05/16/2014 Do You Use Sunscreen Routinely? No Information not available 05/16/2014 Has Tobacco Cessation Counseling Been Provided? No [email or web address] Information not available 08/12/2022 On What Date Was Tobacco Cessation Counseling Provided? 05/14/2021 Information not available 05/14/2021 Year In School 11 Informatio n not available 05/16/2014 Sex: Female Functional Status Question Answer Note LastModified by Organizat ion Details LastModified Time Do you or have you ever used any other forms of tobacco or nicotine? No Information not available 08/12/2022 What is your level of alcohol consumption? Occasional Information not available 05/14/2021 What is your exercise level? Occasional Information not available 05/16/2014 Mental Status Question Answer Note LastModified by Organization D etails LastModified Time Are you or have you been involved with bullying? Yes Information not available 05/16/2014 Family History Relationship Description Onset Age of this Age Resolved Age Notes LastModified by Organization Details LastModified Time Maternal Grandmother Malignant tumor of breast 50 Not available 2023 17:03:16 Maternal Grandmother Malignant neoplasm of ovary Not available 2023 17:03:26 Maternal Aunt Malignant tumor of breast 40 Not available 2023 17:03:08 Medical History Condition Response Coronary Artery Disease N Other N High Blood Pressure N Atrial Fibrillation N Blood Diseases N Ear or Hearing Problems N Thyroid Problems N Kidney or Bladder Problems N COPD N Blood Clots N GI Problems N Depression N Developmental or Behavioral Disorders N Skin Problems N Premature N Anemia N Constipation N Heart Attack ([place]) N Anxiety Disorder N Diabetes N Muscle, Joint, or Bone Problems N Bedwetting N Vision or Eye Problems Y Seizures/Epilepsy N Heart Problems/Murmur N Head Injury/Concussion N Acid Reflux (GERD) N Cancer N Stroke N Asthma N Allergies N ADHD N Bladder or Kidney Problems N High Cholesterol N Hepatitis N Liver Disease N Headaches N Osteoporosis N Heart Failure N Chicken Pox N Autism Spectrum Disorder (ASD) N Gynecological History Statement/Question Response Flow Heavy Date of LMP 05/12/2024 STIs/STDs Y HPV Vaccine Y Duration of Flow (days) 7 Most Recent Mammogram Age at Menarche 12 Current Control Method None Age at First Child 2 Frequency of Cycle (Q days) 30 Sexually Active? Y Menses Monthly Yes Date of Last Pap Smear 08/05/2022 Sexual Problems? N LMP Approximate Desired Control Method None Obstetrics History GPAL:G 2 P 1 0 1 0 Type Value Multiple Births 0 Full Term 1 Induced 1 Spontaneous 0 Premature 0 Living 0 Ectopics 0 Total 2 Immunizations Vaccine Type Date Status Note Provider Nam e and Address Organization Details Recorded Time Hib-Hep B 8 completed LEVY Lubin Attn: Accounting,[address] [place], [place], [address] [place] [address], [facility] - [facility] 08/12/2022 15:50:20 Hib-Hep B 8 completed LEVY Lubin Attn: Accounting,[address] [place], [address], [place] [facility] 08/12/2022 15:50:20 IPV 0 completed LEVY Lubin Attn: Accounting,[address] [place], [address], [place] [facility] 08/12/2022 15:50:20 IPV 1 completed LEVY Lubin Attn: Accounting,[address] [place], [address], [place] [facility] 08/12/2022 15:50:20 IPV 7 completed LEVY Lubin Attn: Accounting,[address] [facility], [place], [address] [place] [address], [place] [facility] 08/12/2022 15:50:20 COVID-19, mRNA, LNP-S, PF, 30 mcg/0.3 mL dose 1 completed LEVY Lubin Attn: Accounting,[address] [facility], [place], [address] [place] [address], [place] [facility] 08/12/2022 15:50:20 COVID-19, mRNA, LNP-S, PF, 30 mcg/0.3 mL dose 1 completed LEVY Lubin Attn: Accounting,[address] [facility], [place], [address] [place] [address], [place] [facility] 08/12/2022 15:50:20 OPV 8 completed LEVY Lubin Attn: Accounting,[address] [facility], [place], [address] [place] [address], [place] [facility] 08/12/2022 15:50:20 HPV, bivalent 3 completed LEVY Lubin Attn: Accounting,[address] 1 [facility], [place], [address] [place] [address], [place] [facility] 08/12/2022 15:50:21 HPV, bivalent 1 completed LEVY Lubin Attn: Accounting,[address] [facility], [place], [address] [place] [address], [place] [facility] 08/12/2022 15:50:21 HPV, quadrivalent 9 completed LEVY Lubin Attn: Accounting,[address] [facility], [place], [address] [place] [address], [place] [facility] 08/12/2022 15:50:21 Hep B, adolescent or pediatric 7 completed Keiry Gentile NP-C Attn: Accounting,[address] [facility], [place], [address] [place] [address], [place] [facility] 08/12/2022 15:50:21 Hep B, adolescent or pediatric 7 completed CLEO LubinC Attn: Accounting,[address], [place], [address] [place] [address], [place] [facility] 08/12/2022 15:50:21 Hep A, ped/adol, 2 dose 2 completed CLEO LubinC Attn: Accounting,[address], [place], [address] [place] [address], [place] [facility] 08/12/2022 15:50:21 Hep A, ped/adol, 2 dose 9 completed LEVY Lubin Attn: Accounting,[address] [facility], [place], [address] [place] [address], [place] [facility] 08/12/2022 15:50:21 Hep A, ped/adol, 2 dose 1 completed LEVY Lubin Attn: Accounting,[address] [facility], [place], [address] [place] [address], [place] [facility] 08/12/2022 15:50:21 Meningococcal MCV4O 3 completed LEVY Lubin Attn: Accounting,[address] [facility], [place], [address] [place] [address], [place] [facility] 08/12/2022 15:50:21 meningococcal MCV4P 9 completed LEVY Lubin Attn: Accounting,[address] 1 [facility], [place], [address] [place] [address], [place] [facility] 08/12/2022 15:50:21 meningococcal MCV4P 5 completed LEVY Lubin Attn: Accounting,[address] [facility], [place], [address] [place] [address], [place] [facility] 08/12/2022 15:50:21 DTaP 8 completed CLEO LubinC Attn: Accounting,[address] 1 [facility], [place], [address] [place] [address], [place] [facility] 08/12/2022 15:50:21 DTaP 8 completed LEVY Lubin Attn: Accounting,[address] [facility], [place], [address] [place] [address], [place] [facility] 08/12/2022 15:50:21 DTaP 0 completed LEVY Lubin Attn: Accounting,[address] 1 [facility], [place], [address] [place] [address], [place] [facility] 08/12/2022 15:50:21 DTaP 1 completed LEVY Lubin Attn: Accounting,[address] [facility], [place], [address] [place] [address], [place] [facility] 08/12/2022 15:50:21 Hep B, unspecified formulation 8 completed Not Available [facility] 11/11/2022 09:51:32 Hep A, pediatric, unspecified formulation 1 completed Not Available [facility] 11/11/2022 09:51:33 varicella 1 completed Carol De [place] [facility] 08/09/2014 10:11:55 MMR 0 completed Carol De [place] [facility] 08/09/2014 10:11:55 polio, unspecified formulation 8 completed Not Available [facility] 11/11/2022 09:51:32 MMR 1 completed Carol De [place] [facility] 08/09/2014 10:11:55 Tdap 9 completed LEVY Lubin Attn: Accounting,[address] [facility], [place], [address] [place] [address], [place] [facility] 08/12/2022 15:50:20 Hep A, pediatric, unspecified formulation 9 completed Not Available [facility] 11/11/2022 09:51:33 varicella 9 completed LEVY Lubin Attn: Accounting,[address] , [place], [address], [place] [facility] 08/12/2022 15:50:20 Hep B, unspecified formulation 8 completed Not Available [facility] 11/11/2022 09:51:32 HPV, unspecified formulation 2 completed Carol De [place] [facility] 08/09/2014 10:11:55 meningococcal B, unspecified 3 completed [place] De [place] [facility] 08/09/2014 10:11:55 Hep A, pediatric, unspecified formulation 2 completed Not Available [facility] 11/11/2022 09:51:33 Hib, unspecified formulation 8 completed Not Available [facility] 11/11/2022 09:51:32 meningococcal B, unspecified 9 completed Carol De [place] [facility] 08/09/2014 10:11:55 Hib, unspecified formulation 8 completed Not Available [facility] 11/11/2022 09:51:32 Past Encounters Encounter ID Performer Location Encounter Start Date Encounter Closed Date Diagnosis/Indication Diagnosis SNOMED-CT Code Diagnosis ICD10 Code Diagnosis Note [id number] CACHORRO Maldonado [facility] (Peds) [address] [place] [address] 05/16/2014 10:10:46 05/16/2014 11:46:59 Well child [id number] Obese [id number] At [facility] risk for infection [id number] Bhupendra Griffin MD [facility] (Peds) [address] [place] [address] 05/24/2014 16:28:03 05/24/2014 17:22:03 Chlamydial infection [id number] Domingo rubio MD [facility] [address] [place] [address] 10/15/2014 10:20:29 10/15/2014 12:20:43 Vaginal discharge 551240004 High risk sexual behavior 332211185 Harmful pa ttern of use of alcohol 92111666 Harmful pa ttern of use of cannabis 88203663 [id number] Domingo rubio MD [facility] [address] [place] [address] 10/19/2014 14:21:49 10/19/2014 15:07:39 Bacterial vaginosis 754025241 Candidal vulvovaginitis 45293483 [id number] Callie De Oliveira MD [facility] (BUSINESS EDUCATION PROFESSOR) [address] [place] [address] 01/21/2016 15:48:51 01/23/2016 13:47:25 Gynecologic examination 35956085 Z01.419 Vaginal discharge 275493 006 N89.8 [id number] Leslie Aguayo [facility] (BUSINESS EDUCATION PROFESSOR) [address] [place] [address] 12/13/2017 14:54:20 12/16/2017 17:30:51 Gynecologic examination 77625712 Z01.411 Vaginal discharge 511076 006 N89.8 Bacterial vaginosis 4197 05397 N76.0 [id number] Leslie Aguayo [facility] (BUSINESS EDUCATION PROFESSOR) [address] [place] [address] 01/19/2018 14:44:26 01/27/2018 14:24:18 Recurrent bacterial infection 628236186 A49.9 [id number] Matheus Rockwell DO [facility] (BUSINESS EDUCATION PROFESSOR) [address] [place] [address] 04/20/2018 16:41:32 05/02/2018 20:57:24 Recurrent bacterial infection 177569798 A49.9 states used ALL meds last visit but S & S remain; offered & refused oral meds states used before without success. [id number] Leslie Aguaoy [facility] (BUSINESS EDUCATION PROFESSOR) [address] [place] [address] 08/26/2018 11:00:07 08/30/2018 15:29:19 Gynecologic examination 47249126 Z01.411 High risk sexual behavior 145309495 Z72.51 with current sex partner X 5 - 6 years hx. of + chlamydia 2 years ago. Discussed safe sex & condom use. Pain in throat 296871352 R07.0 c\o S & S X 3 days. Denies hx. of previous strep. Hx. of sinusitis advised to f\u with room vaporizer to alleviate post nasal drip Vaginal discharge 199426 006 N89.8 Bacterial vaginosis 4197 84087 N76.0 [id number] Matheus Rockwell DO [facility] (BUSINESS EDUCATION PROFESSOR) [address] [place] [address] 03/17/2019 12:20:13 03/17/2019 16:49:28 High risk heterosexual behavior 6625430393 69850 Z72.51 Contracept ion care management 351819233 Z30.9 [id number] MEREDITH PARRA [facility] [address] [place] [address] 05/14/2021 11:36:41 05/20/2021 08:48:42 Positive screening for depression on PHQ-9 (Patient Health Questionnaire 9) 7658218331 Z13.89 score 7 Constipation 65645551 K5 9.00 every 4 days. drinks water. stool sfotener did not help. miralax does not work. prune juice did it once. Goiter 6669826 E04.9 Obesity 010305398 E66.9 At [facility] risk of sexually transmitted infection 579926158 Z20.2 [id number] Keiry Gentile NP-Laurence hays [facility] ([address]) [address] [facility] [place] [address] 08/12/2022 15:02:14 08/19/2022 15:59:46 Thoracic back pain 571561171 M54.6 send to PT-tylenol , heat for pain-f/u once therapy complete Lumbago with sciatica 20 0891050 M54.41 -see above Dysuria 05582496 R30.0 -UA with blood, small leukocytes Positive s creening for depression on PHQ-9 (Patient Health Questionnaire 9) 5703920854 Z13.31 -consider pp depression with 7 mo old baby-decli vale meds-agree able to counseling Obesity 692949846 E66.9 Hyperglycemia 48595948 R 73.9 check labs [id number] LEVY Lubin FP ([address]) [address] [place] [address] 08/27/2022 10:44:19 08/28/2022 11:42:20 Contraception care 745626855 Z30.40 -advised on Wednesday start method-adv ised no smoking on contracept ion depression 58 482630 F53.0 -start SSRI-will take 2-3 weeks to reach full effect, encouraged to take at the same time daily-enco uraged counseling -RTC 3-4 weeks for med management -Report to ER for SI Obesity 685169076 E66.9 [id number] LEVY Lubin FP ([address]) [address] [place] [address] 11/11/2022 09:51:09 11/13/2022 15:13:09 Herpes labialis 1709243 B00.1 -valacyclo vir as needed High risk sexual behavior 288790758 Z72.51 -check labs-cont condom use to prevent STIs Thoracic back pain 99808 8004 M54.6 -cont PT-muscle relaxers as needed Obesity 159680264 E66.9 [id number] Rafael Forrest MD [facility] [address] [place] [address] 05/15/2024 16:16:22 05/17/2024 13:10:55 Goiter 1777037 E04.9 noticed on examwill obtain USUS 2020 normal High risk sexual behavior 886301076 Z72.51 -check labs+chlam ydia 2022-cont condom use to prevent STIs Obesity 130514717 E66.9 34.6advise d stopping sweet tea and soda Prediabetes 975895223 R7 3.03 5.9 2022 Health Concerns Section Related Observation LastModified by Organization Detai ls LastModified Time None Recorded Concern Status LastModified by Organization Details LastModified Time None Recorded Advance Directives Directive None Recorded Payers Encounter Date Sequence Insurance Name Policy Number Policy Aguilar Covered Member ID Aguilar Member ID Guarantor Name 05/14/2021 1 [facility] (MEDICAID HMO) [id number] Audrey [facility] [id number] Audrey [facility] 08/12/2022 1 [facility] [place] [id number] Audrey [facility] [id number] Audrey [facility] 08/27/2022 1 [facility] (MEDICAID HMO) [id number] Audrey [facility] [id number] Audrey [facility] 11/11/2022 1 [facility] (MEDICAID HMO) [id number] Audrey [facility] [id number] Audrey [facility] 05/15/2024 1 [facility] [id number] Natan [facility] [id number] Audrey [facility] Notes Date Note Type Note Provider Name and Address Organization Details Recorded Time 05/14/2021 text/html Audrey is a 26 YO F presenting for f/u patient [facility]. last appointment last month. they did pap and normal. They did check std but no known results. one per week elena brody. sleeping 4 hours. go to bed 2am 6am-6pm MEREDITH PARRA Attn: Accounting,[address] [place], [address], [facility] 05/20/2021 06:22:22 08/12/2022 text/html 27-year-old heal thy female presents to the clinic for establishing care. She is interested in a breast reduction surgery and wanted to know if she could get a referral somewhere because she has chronic upper back pain due to her breasts. She states it interferes with her posture and causes even more pain. Patient also has a history of right sided sciatica and is not on any pain medication. She is interested in getting pain medication for her sciatica. She does some stretching at home for the pain which helps. Patient is interested in starting control. She used the depot shot in the past for about 2 years. She discontinued the depot in 2013. Patient is interested in the IUD hormonal option. Patient had a pap smear with Dr. Berg at [facility] in [place], [place]. She is awaiting results. Patient is currently menstruating today. Patient also reports urinary urgency for the past two weeks with slight abominal cramping. She denies hematuria, increased urinary frequency, fever. She states she is staying hydrated. LEVY Lubin Attn: Accounting, [address] [facility], [place], [address], [facility] 08/20/2022 14:03:31 08/27/2022 text/html Audrey is here today for contraception visit. She no longer wants an IUD and wants to discuss OCP vs patches. She does have sensitive skin. She denies cigarette smoking. She is not concerned about daily use. LEVY Lubin Attn: Accounting,[address] [facility], [place], [address], [facility] 08/27/2022 12:21:33 11/11/2022 text/html Audrey is here today requesting STI testing. She has a new sexual partner. She notes they do use condoms. She denies any dysuria or vaginal discharge. She needs a refill of her valacyclovir for cold sores. She has been in PT for back pain and needs her muscle relaxers refilled. She has mid and low back pain. She has been using cyclobenzaprine with good relief. LEVY Lubin Attn: Accounting, [address] [facility], [place], [address], [facility] 11/11/2022 15:01:23 05/15/2024 text/html Audrey is here today requesting STI testing. She has a new sexual partner x 6 months and has not had testing.. She notes they do use condoms. She denies any dysuria or vaginal discharge. + for chlamydia 10/2022 and did not re-test. MEREDITH PARRA Attn: Accounting,[address] [facility], [place], [address], [place] [facility] 05/16/2024 13:55:05 OBGyn Episode No OBEpisode recorded.
--- OUTSIDE RECORDS SUMMARY | 2024-11-10 21:21 | XMS_ITS | Referral Summary ---
Author Organization [facility] Address [address] [place] [address] Care Team Providers Care Foundry Equipment Mechanic Name Role Phone No, Physician Primary Care Provider [phone] Allergies Active Allergy Reactions Criticality Noted Date [...] score 22% Menorrhagia with regular cycle 08/05/2022 Social History Tobacco Use Types Packs/Day Years Used Date Smoking Tobacco: Never Smokeless Tobacco: Never Tobacco Cessation:Counseling Given: Not Answered Personal Safety Answer Date Recorded Getting School Help Needed Not on file 06/20 Comments No Sex and Gender Information Value Date Recorded Sex Assigned at Not on file Legal Sex Female 8:38 PM INSOLE RASPER Gender Identity Not on file Sexual Orientation Not on file Last Filed Vital Signs Vital Sign Reading [...] 09/14/2023 11:27 AM CDT Plan of Treatment Not on file Procedures Procedure Name Priority Date/Time Associated Diagnosis Comments PAP WITH REFLEX TO HIGH RISK HPV Routine 08/09/2023 4:26 PM INSOLE RASPER Well woman exam with routine gynecological exam HEPATITIS PANEL, ACUTE Routine 08/05/2022 2:42 PM INSOLE RASPER Well woman exam with routine gynecological exam Screening for STD (sexually transmitted disease) from Last 3 Months or Most Recently Relevant to Health Maintenance Results * Pap with reflex to High Risk HPV and Genotyping (Cytology Component) (08/09/2023 4:26 PM INSOLE RASPER) Thin prep (Pap test) 08/09/2023 4:26 PM INSOLE RASPER 08/10/2023 5:53 PM INSOLE RASPER Narrative PATHOLOGY [facility] - 08/17/2023 8:20 AM INSOLE RASPER EPIC results best viewed via link to PDF [facility] [place] [address] Note to Patients: This report may contain [...] Gender: F : 1995 (Age: 28) Address: [address] [place] [address] [facility] #: [id number] Service: DEFAULT Location: Patient Type: [facility] SPECIMEN Taken: 08/09/2023 Received: 08/10/2023 Accessioned: 08/11/2023 [...] clinical information and biopsy results as indicated. [facility] Clinical Laboratory Improvement Amendments (CLIA) mandate that cytologic and histologic results be correlated for laboratory quality compliance consultant & improvement standards. FOR ALL HIGH-GRADE CASES [...] determined by the Surgical Pathology Department at [facility] as part of an ongoing quality compliance manager program and in compliance with federally mandated [...] determined by the Surgical Pathology Department of [facility]. It has not been cleared or approved by the U. S. Food and Drug Administration. Toma Peters CNM LAB CYTOLOGY ORDERA BLES Final Result PATHOLOGY [facility] * Hepatitis panel, acute (08/05/2022 2:42 PM INSOLE RASPER) Hep A IgM Nonreactive Nonreactive CASSANDRA Comment: [...] Nonreactive Nonreactive CASSANDRA Blood 08/05/2022 2:42 PM INSOLE RASPER 08/05/2022 6:43 PM INSOLE RASPER Morena Heredia NP LAB MICROBIOLOGY - GENERAL ORDER DEIDRE Final Result CASSANDRA [address] [facility] Department [place] [address] from Last 3 Months or Most Recently Relevant to Health Maintenance Insurance [facility] [employer] [facility] HMO/PPO Address: [address] [address] [place] [address] IDPA Care Teams Foundry Equipment Mechanic Relationship Specialty Start Date End Date No, Physician PCP - General 08/05/22
--- OUTSIDE RECORDS SUMMARY | 2024-11-10 21:21 | XMS_ITS | Clinical Summary ---
Author Organization [facility] Address [address] [place] [address] Care Team Providers Care Clinical Staff Educator Name Role Phone Kolby Prado MD Primary Care Provider [phone] Source Comments PLEASE NOTE, if this patient is a minor, it may be UNLAWFUL to discuss sensitive information that is contained in these records (such as FAMILY PLANNING, MENTAL HEALTH or SUBSTANCE ABUSE) with the minor patient's parent or other person without the patient's specific authorization.[facility] Allergies No known active allergies Social History Tobacco Use Types Packs/Day Years Used Date Smoking Tobacco: Never Assessed Social Connections Answer Date Recorded Social Connections and Isolation 0 03/06/2020 Financial Resource Strain Answer Date R ecorded Financial Resource Strain 0 2019 Stress Answer Date Recorded Stress 0 03/06/2020 Physical Activity Answer Date Recorded Physical Activity 0 03/06/2020 Food Insecurity Answer Date Recorded Food 0 03/06/2020 Transportation Needs Answer Date Record ed Transportation 0 03/06/2020 Housing Stability Answer Date Recorded Housing 0 03/06/2020 Safety and Environment Answer Date Chidi rded Safety 0 03/06/2020 Utilities Answer Date Recorded Utilities 0 03/06/2020 Employment Answer Date Recorded Employment 0 03/06/2020 Comments Unknown Sex and Gender Information Value Date Recorded Sex Assigned at Not on file Legal Sex Female 9:13 AM PDT Gender Identity Not on file Sexual Orientation Not on file Plan of Treatment Not on file Care Teams Clinical Staff Educator Relationship Specialty Start Date End Date Kolby Prado MD [address] [place] [address] PCP - General Infectious Diseases 03/06/20
--- OUTSIDE RECORDS SUMMARY | 2024-11-10 21:21 | XMS_ITS | Clinical Summary ---
Author Organization [facility] Address [address] [place] [address] Care Team Providers Care Deputy Chief Sheriff Name Role Phone Unavailable Primary Care Provider Unavailabl e Source Comments [facility],non-owned Affiliates and Associated Physician Practices is amultiple site organization consisting of ambulatory clinics and hospital sitesin [place], [place], [place] and [place]. This disclosure is being madepursuant to the Care Everywhere program and may not contain all informatio navailable regarding this patient. Last updated 18.[facility] Allergies No known active allergies Medications * Be aware that medications may not be up to date on this document. Alwaysverify current medications with the patient. Vit-Fe Fumarate-FA ( VITAMIN PO) Take 1 tablet by mouth Active calcium carbonate (TUMS) 500 MG chew tabletIndicatio ns:Heartburn Take 2 tablets by mouth daily with food Reasons: Heartburn Active Family History Medical History Relation Name Comments Hypertension Mother Relation Name Status Comments Mother Social History Tobacco Use Types Packs/Day Years Used Date Smoking Tobacco: Never Smokeless Tobacco: Never Alcohol Use Standard Drinks/Week Comments Not Asked 0 (1 standard drink = 0.6 oz pure alcohol) occasional glass of wine, very rare Comments No Sex and Gender Information Value Date Recorded Sex Assigned at Not on file Legal Sex Female 5:42 AM [employer]ING [employer] Gender Identity Not on file Sexual Orientation Not on file Last Filed Vital Signs Vital Sign Reading Time Taken Comments Blood Pressure 123/56 10/30/2021 1:44 PM CDT Pulse 91 10/30/2021 1:44 PM CDT Temperature - - Respiratory Rate - - Oxygen Saturation - - Inhaled Oxygen Concentration - - Weight 115.7 kg (255 lb) 10/30/2021 1:44 PM CDT Height - - Body Mass Index - - Plan of Treatment Health Maintenance Due Date Last Done Comments PAP SMEAR 1997 HEPATITIS C SCREENING 04/05/2015 DTAP/TDAP/TD VACCINES (1 - Tdap) 2016 HEPATITIS B VACCINE (1 of 3 - 19+ 3-dose series) 2016 COVID-19 VACCINE (4 - 2023-2 5 season) 2024 05/16/2021, 04/25/2021, 04/25/2021 DEPRESSION SCREENING 06/21/2024 INFLUENZA VACCINE (Season Ended) 2025 ZOSTER VACCINE (1 of 2) 2047 HIV SCREENING Completed 11/04/2021 HIB VACCINE Aged Out No longer eligi ble based on patient's age to complete this topic HPV VACCINE Aged Out No longer eligi ble based on patient's age to complete this topic MENINGOCOCCAL (Group B) VACCINE SHARED DECISION-MAKING Aged Out No longer eligible based on patient's age to complete this topic MENINGOCOCCAL GROUPS A/C/Y/W VACCINE Aged Out No longer eligible b ased on patient's age to complete this topic PNEUMOCOCCAL VACCINE Aged Out No long er eligible based on patient's age to complete this topic Insurance SELF PAY NO INSURANCE Member Subscriber Plan / Payer (Ef fective for All Dates) Name:Flores Milan Member ID:Not on file Relation to Subscriber:Not on file Name:NAOMI MILAN Subscriber ID:Not on file (Home) Address: [address] [place] [id number] Payer ID:Not on file Group ID:Not on file Type:Self Pay Address: [facility]
--- OUTSIDE RECORDS SUMMARY | 2024-11-10 21:21 | XMS_ITS | Data Portability ---
Author Organization [facility] Address [address] [place] [address] [place] [address] Care Team Providers Care Drawer Maker Name Role Phone ALEK DEAN Primary Care Provider [phone] Assessment No assessment recorded. Plan of Treatment Reminders Order Date Submit Date Provider Last Modified By Organization Details Last Modified Time Details Appointments None recorded. Lab None recorded. Referral None recorded. Procedures None recorded. Surgeries None recorded. Imaging US, obstetric, biophysical profile + non-stress test 2021 022 [email or web address], [address], [place], [address], 13:05:36 non-stress test 2021 022 [email or web address] [place], [address], [place], [address], 13:02:49 US, obstetric, biophysical profile + non-stress test 2021 [email or web address], [address], [place], [address], 13:40:20 Medication Orders None recorded. Patient TargetsNo targets recorded. Patient InstructionsNo instructions recorded. Reason for Referral None Reported. Results Created Date Observation Date Name Description Value Unit Range Abnormal Flag Note LastModifiedBy Organization Detail LastModifiedTime 12/26/19 22 12/25/2021 CULTU RE: GROUP B STREP SCREE N, REFLE X SUSCE PTIBI LITY result report SEE RESULT S BELOW Test: Cultu re: Group B Strep , Refle x Susce ptibi lity ([facility]/ [facility] ) Speci men Sourc e: Vagin a/Rec [email or web address] Speci men Type: Vagin al/Re ctal Speci men Date: 022 2:59 PM Resul t Date: 2021 2:40 PM Resul t Statu s: Final resul t Abnor mal: No Resul ting Lab: [facility] [address] [facility] [address] Tel: CULTU RE ----- ----- ----- --- No Group B strep isola sue at 2 days (monster ctive broth enhan cemen t) Not Available [facility] Stat Weekend Draws [address] [facility], [place], [address], 12/28/2021 15:43:41 12/26/19 22 12/25/2021 US, obste tric, follo w-up No observ ation record ed. [email or web address] [place] [address], [place], [address], 12/25/2021 18:09:14 12/26/19 22 12/25/2021 US, obste tric, follo w-up No observ ation record ed. [email or web address] [address] [facility], [place], [address], 12/25/2022 15:41:55 12/30/19 22 12/29/2021 US, marnie lentz, bioph ysica l profi le + non-s tress test No observ ation record ed. [email or web address] [place] [address], [place], [address], 12/29/2021 13:32:05 12/30/19 22 12/29/2021 non-s tress test No observ ation record ed. [email or web address] [place] [address], [place], [address], 12/29/2021 13:43:32 12/30/19 22 12/29/2021 US, obste tric, bioph ysica l profi le + non-s tress test No observ ation record ed. [email or web address] [address], [place], [address], 12/25/2022 15:49:21 01/06/20 22 01/05/2022 non-s tress test No observ ation record ed. [email or web address] [place] [address], [place], [address], 01/05/2022 11:31:01 01/06/20 22 01/05/2022 US, obste tric, bioph ysica l profi le + non-s tress test No observ ation record ed. [email or web address] [place] [address], [place], [address], 01/05/2022 14:22:39 01/06/20 22 01/05/2022 US, obste tric, bioph ysica l profi le + non-s tress test No observ ation record ed. [email or web address] [address], [place], [address], 12/28/2022 14:21:55 Result Notes None recorded. Problems Name Problem SNOMED Code Status Onset Date Resolution Date Notes Provider Name and Address Organization Details Recorded Time Pregnanc y 85522622 Completed 202102/06/2022 Felipa martinezl null, [facility] 2 14:49:22 Low back pain in pregnanc y 22809975315 06 Completed Felipa Edwards ehl null, [facility] 2 14:49:16 Prediabe jenny 374348485 Completed Early 1 hr and rpt at 28wk both WNL Felipa Bohnensti ehl null, [facility] 2 14:49:16 Herpes simplex 13506204 Completed Oral Felipa Bohnensti ehl null, [facility] 2 14:49:16 Body mass index 30+ - obesity 763015010 Completed antenata l testing 37wks Felipa Bohnensti ehl null, [facility] 2 14:49:16 Short cervical length in pregnanc y 744353649 Completed Saw MFM 5/12 - FFN 5/17 1cm/50% Felipa Bohnensti ehl null, [facility] 2 14:49:16 Short cervical length in pregnanc y 645135690 Active Saw MFM 5/12 - FFN 5/17 1cm/50% Felipa Bohnensti ehl null, [facility] 2 14:49:16 Herpes simplex 99756356 Active Oral Felipa Bohnensti ehl null, [facility] 2 14:49:16 Body mass index 30+ - obesity 902029304 Active antenata l testing 37wks Felipa Bohnensti ehl null, [facility] 2 14:49:16 Uterine size for dates discrepa ncy 501982590 Active S>D, has growth 12/29 Felipa Bohnensti ehl null, [facility] 2 14:49:16 Uterine size for dates discrepa ncy 005822699 Completed S>D, has growth 12/29 Felipa Bohnensti ehl null, [facility] 2 14:49:16 Problem Notes None recorded. Procedures Surgical History Date Name Laterality Status Provider Name and Address Organization Details Recorded Time 04/07/2021 Date of Last Pap Smear completed Sendy Hagan [facility] 06/17/2021 14:44:15 Imaging Results Imaging Date Name Status LastModified by Organiz ation Details LastModified Time 12/25/2021 US, obstetric, follow-up completed [email or web address] [place] [address], [place], [address], 12/25/2021 18:09:14 12/25/2021 US, obstetric, follow-up completed [email or web address] [address], [place], [address], 12/25/2022 15:41:55 12/29/2021 US, obstetric, biophysical profile + non-stress test completed [email or web address] [place] [address], [place], [address], 12/29/2021 13:32:05 12/29/2021 non-stress test completed [email or web address] [place] [address], [place], [address], 12/29/2021 13:43:32 12/29/2021 US, obstetric, biophysical profile + non-stress test completed [email or web address] [address], [place], [address], 12/25/2022 15:49:21 01/05/2022 [email or web address] [place] [address], [place], [address], 01/05/2022 11:31:01 01/05/2022 US, obstetric, biophysical profile + non-stress test completed [email or web address] [place] [address], [place], [address], 01/05/2022 14:22:39 01/05/2022 US, obstetric, biophysical profile + non-stress test completed [email or web address] [address], [place], [address], 12/28/2022 14:21:55 Procedure Notes None recorded. Medical Equipment None Reported. Allergies No known drug allergies Medications Name Sig Start Date Stop Date Status Note LastModified by Organization Details LastModified Time nifedipine ER 30 mg tablet,exten ded release 24 hr TAKE 1 TABLET BY MOUTH ONCE DAILY active Not Available Not Available No t Available cyclobenzapr ine 10 mg tablet TAKE 1 TABLET BY MOUTH THREE TIMES DAILY active Not Available Not Available Not Available valacyclovir 500 mg tablet 2020 active Not Available Not Available Not Avai lable ondansetron 8 mg disintegrati ng tablet Place 1 tablet twice a day by translingua l route. 2021 active Not Available Not Available Not Avai lable ferrous sulfate 325 mg (65 mg iron) tablet Take 1 tablet every day by oral route. 2021 active Not Available Not Available Not Avai lable ferrous sulfate 325 mg (65 mg iron) tablet,delay ed release TAKE 1 TABLET BY MOUTH ONCE DAILY active Not Available Not Available No t Available Vitals Date Recorded Body height Body mass index (BMI) Body weight Systolic blood pressure Diastolic blood pressure Provider Name and Address Organization Details Last Updated DateTime 12/29/2021 170.18 cm 42.1 kg/m2 401382.3 4753 g 125 mm[Hg] 83 mm[Hg] [facility] 2 12:16:18 Date Recorded Body height Body mass index (BMI) Body weight Systolic blood pressure Diastolic blood pressure Provider Name and Address Organization Details Last Updated DateTime 01/05/2022 170.18 cm 43.9 kg/m2 295963.8 636 g 134 mm[Hg] 83 mm[Hg] [facility] 2 12:14:30 Date Recorded Body height Body mass index (BMI) Body weight Systolic blood pressure Diastolic blood pressure Provider Name and Address Organization Details Last Updated DateTime 02/09/2022 170.18 cm 39.8 kg/m2 282644.4 6 g 120 mm[Hg] 77 mm[Hg] Chelsea Nobles [facility] 2 11:58:23 Social History Question Answer Notes LastModified by Organizat ion Details LastModified Time Tobacco Smoking Status Never Smoker Gabby Rand [facility] 02/09/2022 11:45:40 Do You Have An Advance Directive? No Information n ot available 07/17/2021 How Many Years Have You Consumed Alcohol? 4 Information not available 08/07/2021 Are You Blind Or Do You Have Difficulty Seeing? No Information n ot available 07/17/2021 What Is Your Level Of Caffeine Consumption? Occasional Information not available 07/17/2021 How Much Tobacco Do You Chew? None Information not available 08/07/2021 In The 14 Days Before Symptom Onset, Have You Had Close Contact With A Laboratory-confirm ed COVID-19 While That Case Was Ill? No Information n ot available 07/17/2021 In The 14 Days Before Symptom Onset, Have You Had Close Contact With A Person Who Is Under Investigation For COVID-19 While That Person Was Ill? No Information not available 07/17/2021 Have You Been To An Area Known To Be High Risk For COVID-19? No Information not available 07/17/2021 Are You Deaf Or Do You Have Serious Difficulty Hearing? No Information not available 07/17/2021 What Type Of Diet Are You Following? REGULAR Information n ot available 07/17/2021 What Is The Highest Grade Or Level Of School You Have Completed Or The Highest Degree You Have Received? QR06217-8 Information not available 07/17/2021 Are There Any Guns Present In Your Home? No Information not available 07/17/2021 Do You Use Protection During Sex? Usually Information not available 07/17/2021 Do You Use Your Seat Belt Or Car Seat Routinely? Yes Information not available 07/17/2021 Do You Have Smoke And Carbon Monoxide Detectors In Your Home? Yes Information not available 07/17/2021 How Much Tobacco Do You Smoke? No Information not available 07/17/2021 Do You Use Sunscreen Routinely? No Information not available 07/17/2021 Have You Used IV Drugs? No Information not available 07/17/2021 Sex: Unknown Functional Status Question Answer Note LastModified by Organizat ion Details LastModified Time Do you use any illicit or recreational drugs? No Information not available 07/17/2021 What is your level of alcohol consumption? Occasional Information not available 07/17/2021 Are you able to walk? YESWOREST Information not available 07/17/2021 What is your exercise level? Occasional Information not available 07/17/2021 Mental Status Question Answer Note LastModified by Organization D etails LastModified Time Do you feel stressed (tense, restless, nervous, or anxious, or unable to sleep at night)? IL07043-3 Information not available 08/07/2021 Family History Relationship Description Onset Age of this Age Resolved Age Notes LastModified by Organization Details LastModified Time Maternal Grandmother Malignant tumor of breast Not available 2021 15:37:14 Maternal Aunt Malignant tumor of breast Not available 2021 15:37:14 Unspecified Relation Family history unknown Not available 2021 15:37:14 Medical History Condition Response Allergies (Food, seasonal, environmental ) N Other N Drug/Latex Allergies/Reactions N Blood Transfusion N Breast Cancer N Dermatologic Disorders N Lung Disease N Defects or Inherited Disease N Breast Problem N Gestational Diabetes N Hematologic disorders N Anesthesia Complications N History of STI N Deep Vein Thrombosis N Polycystic ovary syndrome N Anxiety Disorder N Autoimmune disease N Arthritis N Polyps N Infertility N Acid Reflux (GERD) N History of abnormal pap N Cancer N Varicosities N Stroke N Neurologic/Epilepsy N Endometriosis N High Cholesterol N Fibromyalgia N Headaches N Kidney Disease N Heart Problems N Thyroid Problems N Kidney or Bladder Problems N GI Problems N Eating Disorder N Anemia N Art (IVF or FET) N Psychiatric Illness N Ovarian Cancer N Diabetes N Pulmonary (TB, Asthma) N Hepatitis/Liver Disease N No Past Medical History Y Eczema N Urinary Tract Infection N Abuse/Domestic Violence N Asthma N Trauma/Violence N Depression/ depression N Heart Disease N Pre-Eclampsia N Hypertension N Osteoporosis N Thrombophilias N Gynecological History Statement/Question Response Abnormal Pap N Date of Last Mammogram Date of LMP 04/07/2021 On BCP's at Conception? N N Was last menstrual period normal Y STIs/STDs N HPV Vaccine N Duration of Flow (days) 7 Current Control Method None Are cycles usually normal Y Frequency of Cycle (Q days) 7 Sexually Active? Y Menses Monthly Y Date of DEXA bone scan Age of first menstrual cycle 12 Date of Last Pap Smear 04/07/2021 Sexual Problems? N Desired Control Method None LMP Approximate N Obstetrics History GPAL:G 1 P 1 0 0 1 Type Value Full Term 1 Living 1 Total 1 Past Encounters Encounter ID Performer Location Encounter Start Date Encounter Closed Date Diagnosis/Indication Diagnosis SNOMED-CT Code Diagnosis ICD10 Code Diagnosis Note [id number] Katerina Jackson CNM [place] [address],[place] [address] 06/17/2021 14:34:56 06/17/2021 15:25:23 test positive 312484669 Z32.01 Risk factors addressed: Tobacco Cessation, Safe Sexual Practices, environmen rehan, work hazards, travel restrictio ns, seat belt use.Eat a health well balanced diet, avoid alcohol, tobacco, and street drugs.Enga ge in daily low impact exercise, avoid temperatur e extremes, and cat, rodent, and bird feces.Avoi d travel to areas where zika virus is a concern.Of fered cf/sma/nip t. Desires all 3. Handouts given and discussed with patient.Ch ildbirth classes recommende d.New OB sheet given.If previous , counseling .Pt verbalizes that she understand s the importance of above instructio ns.All questions were answered.P atient reminded to have annual well woman examinatio n and address [facility] . [id number] Nahid Rivera MD [place] [address],[place] [address] 06/17/2021 14:36:13 06/17/2021 16:08:34 Uncertain viability of 500448467 O36.80X9 Z3A.09 [id number] Nahid Rivera MD [place] [address],[place] [address] 07/17/2021 14:16:59 07/17/2021 15:01:33 screening 241321992 Z36.82 [id number] MD Mounika Sanchez [address],[place] [address] 07/17/2021 14:17:22 07/18/2021 09:27:37 Nausea and vomiting 77151255 R11.2 Routine an tenatal care 306824727 Z34.91 [id number] MD Mounika Sanchez [address],[place] [address] 08/07/2021 09:51:52 08/07/2021 11:08:21 Routine care 605165069 Z34.91 [id number] MD Mounika Sanchez [address],[place] [address] 09/04/2021 11:26:14 09/04/2021 12:37:54 screening for malformation 916981881 Z36.3 [id number] MD Mounika Sanchez [address],[place] [address] 09/04/2021 11:26:45 09/05/2021 14:12:56 Routine care 575995548 Z34.91 [id number] MD Mounika Sanchez [address],[place] [address] 09/29/2021 14:46:36 09/29/2021 15:48:50 screening 939835492 Z36.2 [id number] MD Mounika Sanchez [address],[place] [address] 09/29/2021 14:47:34 09/29/2021 16:36:09 Routine care 172761059 Z34.91 [id number] MD Mounika Mclain [address],[place] [address] 10/28/2021 11:58:07 10/28/2021 14:28:36 screening 847642426 Z36.2 [id number] MD Mounika Mclain [address],[place] [address] 10/28/2021 11:59:08 10/28/2021 13:44:10 Short cervical length in 407322813 O26.879 Routine an tenatal care 967219097 Z34.03 [id number] Lyric Quintanilla MD [place] [address],[place] [address] 11/04/2021 09:28:14 11/04/2021 11:25:15 Short cervical length in 363018435 O26.879 Routine an tenatal care 389736226 Z34.03 [id number] Nahid Rivera MD [place] [address],[place] [address] 11/20/2021 12:30:55 11/20/2021 13:38:09 Routine care 001967312 Z34.91 [id number] Lyric Quintanilla MD [place] [address],[place] [address] 11/28/2021 16:47:40 11/28/2021 17:26:24 Abdominal pain in 390650057 O26.893 Z3A.32 [id number] Katerina Jackson [facility] [address],[place] [address] 12/01/2021 11:35:15 12/01/2021 12:41:00 Routine care 573766723 Z34.93 [id number] Lyric Quintanilla MD [place] [address],[place] [address] 12/15/2021 10:52:08 12/15/2021 11:40:32 Uterine size for dates discrepancy 147815759 O26.849 Routine an tenatal care 184681930 Z34.03 [id number] Nahid Rivera MD [place] [address],[place] [address] 12/25/2021 14:04:09 12/25/2021 14:36:47 Uterine size for dates discrepancy 925316424 O26.849 O26.879 O99.213 Z3A.36 [id number] MD Mounika Sanchez [address],[place] [address] 12/25/2021 14:04:30 12/25/2021 15:36:07 Routine care 005971456 Z34.91 [id number] MD Mounika Mclain [address],[place] [address] 12/29/2021 10:55:18 12/29/2021 12:53:43 Maternal obesity complicating , childbirth and the puerperium, antepartum 3855017640 07 O99.213 Z3A.37 [id number] MD Marilu [place] [address],[place] [address] 12/29/2021 10:55:44 12/29/2021 12:18:40 Maternal obesity complicating , childbirth and the puerperium, antepartum 8401383921 07 O99.213 Z3A.37 [id number] MD Marilu [place] [address],[place] [address] 12/29/2021 10:56:15 12/29/2021 14:00:45 Maternal obesity complicating , childbirth and the puerperium, antepartum 1472013228 07 O99.213 Z3A.37 [id number] MD Mounika Mclain [address],[place] [address] 01/05/2022 10:54:00 01/05/2022 13:02:48 Maternal obesity complicating , childbirth and the puerperium, antepartum 4428187814 07 O99.213 Z3A.37 [id number] MD Mounika Mclain [address],[place] [address] 01/05/2022 10:54:20 01/05/2022 13:03:12 Maternal obesity complicating , childbirth and the puerperium, antepartum 8017483163 07 O99.213 Z3A.38 [id number] MD Mounika Mclain [address],[place] [address] 01/05/2022 10:54:41 01/05/2022 14:00:15 Routine care 036079712 Z34.03 [id number] Nahid Rivera MD [place] [address] [address] 02/09/2022 11:44:36 02/09/2022 13:22:56 care 535217364 Z39.2 This patient is a 26-year-ol d female who presents for follow-up. She had a vaginal approximat shawn 4 weeks ago. Her baby is doing.well . She is doing well. She is breastfeed ing. Her baby is doing well. She stopped bleeding. Talked about contracept ion. She has not had intercours e. She is consid ering Mirena IUD and will contact us she is ready to insert Health Concerns Section Related Observation LastModified by Organization Detai ls LastModified Time None Recorded Concern Status LastModified by Organization Details LastModified Time None Recorded Advance Directives Directive N: Payers Encounter Date Sequence Insurance Name Policy Number Policy Aguilar Covered Member ID Aguilar Member ID Guarantor Name 12/29/2021 1 [facility] (MEDICAID HMO) [id number] [facility] [id number] [facility] 01/05/2022 1 [facility] (MEDICAID HMO) [id number] [facility] [id number] [facility] 01/05/2022 1 [facility] (MEDICAID HMO) [id number] [facility] [id number] [facility] 01/05/2022 1 [facility] (MEDICAID HMO) [id number] [facility] [id number] [facility] 02/09/2022 1 [facility] (MEDICAID HMO) [id number] [facility] [id number] [facility] Notes Date Note Type Note Provider Name and Address Organization Details Recorded Time 02/09/2022 text/html VisitReported bypatient.Notes:Thi s patient is a 26-year-old female who presents for follow-up. She had a vaginal approximately 4 weeks ago. Her baby is doing.well. She is doing well. She is . Her baby is doing well. She stopped bleeding. Talked about contraception. She has not had intercourse. She is consid ering Mirena IUD and will contact us she is ready to insert Nahid Rivera MD [address], [place], [address], [place] [facility] 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 07/17/19 22 1 A Positive 234 CLOSED Fetus Data First Name Last Name Admitted to NICU Weight (g) Sex Living Outcome Pediatric Complications Fetus ID Race Codes Race Delivery Type Jaylmitchell 3316.89 15 F true Full Term [id number] Vaginal Delivery Problems Problem Notes Problem Name Start Date End Date Resolution Snomed Code Not e Herpes simplex 78908427 Oral Body mass index 30+ - obesity 376313977 testi ng 37wks Short cervical length in 244805198 Saw MFM 12 -F FN 5/171cm/50% Prediabetes 249028667 Early 1 hr and rpt at 28wk both WNL Low back pain in 8443632097408 Uterine size for dates discrepancy 682544201 S>D, has g row 12/29 Hai Calculation Initial Hai Date Initial Exam Date Initial Exam Provider Initial Ultrasound Date Last Menstrual Period Date Ultra Sound Weeks Gestation 01/06/2022 07/17/2021 06/17/2021 04/01/2021 9 Eighteen To Twenty Week Hai Update Ultra Sound Date Fundal Height At Umbil Quickening Date Ultra Sound Latest Weeks Gestation Final Hai Confirmed By Final Hai Confirmed Date Final Hai Date Ultra Sound Latest Days Gestation 0 [email or web address] 07/17/2021 01/19/20 22 0 Pre- Flowsheet Flowsheet Date 07/17/2021 Amaro Score Blood Edema Fundus Height Fundus Units Glucose Ketones Leukocytes Nitrite Labor Signs Protein Cervic Dilation Cervic Effacement Cervic Station 13 Type Weight in lbs Pre/Post Dialysis Refused Weight 240.807548203223 BP Diastolic BP Location Tested BP Systolic BP Type 83 R arm 139 sitting Fetus Heart Rate Present A 156 Fetus Movement Comments this patient is a 26-year-ol d 1 para 0 13 weeks gestation who presents for initial care. She has no problems at this time other than low back pain. She was given recommendations on low back pain. She is unremarkable medical and surgical history. She has not been prior to this . She is given recommendations on vaccinations. We discussed care in detail. She will begin routine care. Flowsheet Date 08/07/2021 Amaro Score Blood Edema Fundus Height Fundus Units Glucose Ketones Leukocytes Nitrite Labor Signs Protein Cervic Dilation Cervic Effacement Cervic Station 16 Type Weight in lbs Pre/Post Dialysis Refused Weight 242.940512416419 BP Diastolic BP Location Tested BP Systolic BP Type 77 R arm 130 sitting Fetus Heart Rate Present A 145 Fetus Movement Comments No complaints, of prot ein today, discussed pre diabetes and gestational diabetes. Flowsheet Date 09/04/2021 Amaro Score Blood Edema Fundus Height Fundus Units Glucose Ketones Leukocytes Nitrite Labor Signs Protein Cervic Dilation Cervic Effacement Cervic Station Type Weight in lbs Pre/Post Dialysis Refused BP Diastolic BP Location Tested BP Systolic BP Type Fetus Heart Rate Present Fetus Movement Comments Flowsheet Date 09/04/2021 Amaro Score Blood Edema Fundus Height Fundus Units Glucose Ketones Leukocytes Nitrite Labor Signs Protein Cervic Dilation Cervic Effacement Cervic Station 20 Type Weight in lbs Pre/Post Dialysis Refused Weight 252.607273142008 BP Diastolic BP Location Tested BP Systolic BP Type 84 L arm 128 sitting Fetus Heart Rate Present A 145 Fetus Movement A Yes Comments No complaints, routine care. Flowsheet Date 09/29/2021 Amaro Score Blood Edema Fundus Height Fundus Units Glucose Ketones Leukocytes Nitrite Labor Signs Protein Cervic Dilation Cervic Effacement Cervic Station Type Weight in lbs Pre/Post Dialysis Refused BP Diastolic BP Location Tested BP Systolic BP Type Fetus Heart Rate Present Fetus Movement Comments Flowsheet Date 09/29/2021 Amaro Score Blood Edema Fundus Height Fundus Units Glucose Ketones Leukocytes Nitrite Labor Signs Protein Cervic Dilation Cervic Effacement Cervic Station 24 Type Weight in lbs Pre/Post Dialysis Refused Weight [id number] BP Diastolic BP Location Tested BP Systolic BP Type 79 R arm 129 sitting Fetus Heart Rate Present A 145 Fetus Movement A Yes Comments Continued inadequacy of ultr asound evaluation of the head. Repeat in 4 weeks, no complaints, back pain persists but is stable Flowsheet Date 10/28/2021 Amaro Score Blood Edema Fundus Height Fundus Units Glucose Ketones Leukocytes Nitrite Labor Signs Protein Cervic Dilation Cervic Effacement Cervic Station Type Weight in lbs Pre/Post Dialysis Refused BP Diastolic BP Location Tested BP Systolic BP Type Fetus Heart Rate Present Fetus Movement Comments Flowsheet Date 10/28/2021 Amaro Score Blood Edema Fundus Height Fundus Units Glucose Ketones Leukocytes Nitrite Labor Signs Protein Cervic Dilation Cervic Effacement Cervic Station neg trace 31 none trace 1cm 50% -3 Type Weight in lbs Pre/Post Dialysis Refused Weight 257.044134527866 BP Diastolic BP Location Tested BP Systolic BP Type 80 123 Fetus Heart Rate Present A 150 Fetus Movement A Yes Comments Doing ok. ON US today to com plete cranial anatomy TVUS was done and cervix noted to be 1.3cm. ON exam, /3. She reports one episode of ctx daily that last about 15 min. Denies bleeding or leaking. Passed early GCT, repeating it this week. US today otherwise normal growth and fluid. To L and D for monitoring and steroids. MFM consult. Flowsheet Date 11/04/2021 Amaro Score Blood Edema Fundus Height Fundus Units Glucose Ketones Leukocytes Nitrite Labor Signs Protein Cervic Dilation Cervic Effacement Cervic Station 34 Type Weight in lbs Pre/Post Dialysis Refused Weight 254.256053777863 BP Diastolic BP Location Tested BP Systolic BP Type 82 125 Fetus Heart Rate Present A 145 Fetus Movement Comments DOing well. GOt second dose steroids outpatient, was not having contractions, and has no complaints since discharge. UA and UC today. FFN today. Precautions given. Continue pelvic rest. Recheck cervix if symptoms arise. Discuss Tdap next visit. Flowsheet Date 11/20/2021 Amaro Score Blood Edema Fundus Height Fundus Units Glucose Ketones Leukocytes Nitrite Labor Signs Protein Cervic Dilation Cervic Effacement Cervic Station 32 Type Weight in lbs Pre/Post Dialysis Refused Weight 261.48551568147 BP Diastolic BP Location Tested BP Systolic BP Type 77 R arm 121 sitting Fetus Heart Rate Present A 145 Fetus Movement A Yes Comments no complaints, good mo vement, discussed NSTs and obesity, serial growth next week Flowsheet Date 11/28/2021 Amaro Score Blood Edema Fundus Height Fundus Units Glucose Ketones Leukocytes Nitrite Labor Signs Protein Cervic Dilation Cervic Effacement Cervic Station Type Weight in lbs Pre/Post Dialysis Refused BP Diastolic BP Location Tested BP Systolic BP Type Fetus Heart Rate Present Fetus Movement Comments Flowsheet Date 12/01/2021 Amaro Score Blood Edema Fundus Height Fundus Units Glucose Ketones Leukocytes Nitrite Labor Signs Protein Cervic Dilation Cervic Effacement Cervic Station neg none 34 none trace Type Weight in lbs Pre/Post Dialysis Refused Weight 264.475597701193 BP Diastolic BP Location Tested BP Systolic BP Type 80 118 Fetus Heart Rate Present A 140 Fetus Movement A Yes Comments Doing well. Occasional contr actions. Nothing regular. PTL precautions discussed. Pt is on Procardia at home as needed. This was prescribed at the hospital on Wednesday. Having a girl. Unsure about labor plan or peds. Flowsheet Date 12/15/2021 Amaro Score Blood Edema Fundus Height Fundus Units Glucose Ketones Leukocytes Nitrite Labor Signs Protein Cervic Dilation Cervic Effacement Cervic Station neg trace 39 none trace Type Weight in lbs Pre/Post Dialysis Refused Weight 270.11940366025 BP Diastolic BP Location Tested BP Systolic BP Type 77 119 Fetus Heart Rate Present A 130 Fetus Movement A Yes Comments Doing well. Good FM. GBS nex t week, discussed. Discussed Tdap, encouraged ronny. S>D, has growth again 12/29. Flowsheet Date 12/25/2021 Amaro Score Blood Edema Fundus Height Fundus Units Glucose Ketones Leukocytes Nitrite Labor Signs Protein Cervic Dilation Cervic Effacement Cervic Station Type Weight in lbs Pre/Post Dialysis Refused BP Diastolic BP Location Tested BP Systolic BP Type Fetus Heart Rate Present Fetus Movement Comments Flowsheet Date 12/25/2021 Amaro Score Blood Edema Fundus Height Fundus Units Glucose Ketones Leukocytes Nitrite Labor Signs Protein Cervic Dilation Cervic Effacement Cervic Station 36 2cm 50% -2 Type Weight in lbs Pre/Post Dialysis Refused Weight 275.333335146768 BP Diastolic BP Location Tested BP Systolic BP Type 80 R arm 122 sitting Fetus Heart Rate Present A 145 Fetus Movement Comments Complain of back pain, she i s given back pain recommendations, very favorable cervix, GBS done today, Flowsheet Date 12/29/2021 Amaro Score Blood Edema Fundus Height Fundus Units Glucose Ketones Leukocytes Nitrite Labor Signs Protein Cervic Dilation Cervic Effacement Cervic Station Type Weight in lbs Pre/Post Dialysis Refused BP Diastolic BP Location Tested BP Systolic BP Type Fetus Heart Rate Present Fetus Movement Comments Flowsheet Date 12/29/2021 Amaro Score Blood Edema Fundus Height Fundus Units Glucose Ketones Leukocytes Nitrite Labor Signs Protein Cervic Dilation Cervic Effacement Cervic Station Type Weight in lbs Pre/Post Dialysis Refused BP Diastolic BP Location Tested BP Systolic BP Type Fetus Heart Rate Present Fetus Movement Comments Flowsheet Date 12/29/2021 Amaro Score Blood Edema Fundus Height Fundus Units Glucose Ketones Leukocytes Nitrite Labor Signs Protein Cervic Dilation Cervic Effacement Cervic Station neg none 39 none trace Type Weight in lbs Pre/Post Dialysis Refused Weight 269.241063076083 BP Diastolic BP Location Tested BP Systolic BP Type 83 125 Fetus Heart Rate Present A 140 Fetus Movement A Yes Comments Doing well. NO contractions, leaking, bleeding, except some spotting after cervical check last week. IOL scheduled 01/12. BPP today 03/30. Precautions given. Flowsheet Date 01/05/2022 Amaro Score Blood Edema Fundus Height Fundus Units Glucose Ketones Leukocytes Nitrite Labor Signs Protein Cervic Dilation Cervic Effacement Cervic Station Type Weight in lbs Pre/Post Dialysis Refused BP Diastolic BP Location Tested BP Systolic BP Type Fetus Heart Rate Present Fetus Movement Comments Flowsheet Date 01/05/2022 Amaro Score Blood Edema Fundus Height Fundus Units Glucose Ketones Leukocytes Nitrite Labor Signs Protein Cervic Dilation Cervic Effacement Cervic Station Type Weight in lbs Pre/Post Dialysis Refused BP Diastolic BP Location Tested BP Systolic BP Type Fetus Heart Rate Present Fetus Movement Comments Flowsheet Date 01/05/2022 Amaro Score Blood Edema Fundus Height Fundus Units Glucose Ketones Leukocytes Nitrite Labor Signs Protein Cervic Dilation Cervic Effacement Cervic Station neg trace none trace Type Weight in lbs Pre/Post Dialysis Refused Weight 280.35585324844 BP Diastolic BP Location Tested BP Systolic BP Type 83 134 Fetus Heart Rate Present A 150 Fetus Movement A Yes Comments Doing well, BPP 10/10. SMITH l ow normal at 8, discussed, will hydrate, being induced in 7 days. Precautions given. Menstrual History Last Menstrual Date Menses Monthly On Bcp Conception Prior Menses Frequency Hcg Plus Date Menarche Onset Age 1004/01/2021 Genetic Screening And Infection History Question Response Note Mental Retardation/Autism false Patient's Age Will Be 35 Years Or Older At Estim ated Date of Delivery false Thalassemia (Chinese, Burundian, Mediterranean, Or Background): MCV < 80 false Neural Tube Defect (Meningomyelocele, Spina Bifi da, Or Anencephaly) false Congenital Heart Defect false Down Syndrome false Jed-Sachs (eg, Spiritism, Cajun, Burundian-Mccormick) f alse Ford Disease false Sickle Cell Disease Or Trait () false Hemophilia Or Other Blood Disorders false Muscular Dystrophy false Cystic Fibrosis false [place]'s Chorea false Intellectual Disability/Autism false If Yes, Was Person Tested For Fragile X? false Other Inherited Genetic Or Chromosomal Disorder false Maternal Metabolic Disorder (eg, Type 1 Diabetes , PKU) false Patient Or Baby's Father Had A Child With Defects Not Listed Above false Recurrent Loss, Or A Stillbirth false Medications (including Suppl ements, Vitamins, Herbs, OTC Drugs), Illicit/Recreational Drugs, Alcohol false If Yes, Agent(s) And Strength/Dosage false Any Other Genetic History false Live With Someone With TB Or Exposed To TB false Patient Or Partner Has History Of Genital Herpes false Rash Or Viral Illness Since Last Menstrual Perio d false History Of STD, Gonorrhea, Chlamydia, HPV, Syphi lis false Other Infection History false History of HIV false History of Hepatitis false Prior GBS-infected child false Hemoglobinopathy Or Carrier false Other Structural Defect false Recent Travel History Outside of Country false Delivery Information Delivery Date Delivery Type Labor Anesthesia Weeks Gestation Incision Type Labor Labor Length Hrs Delivered By Post Complications Tubal Sterilization Discharge Date Comments 2 None Regional-Ep idural 39 false Nahid Rivera MD Maternal obesity and herpes simplex Discharge Information Feeding Method Contraceptive Method Maternal HG B and HCT Levels
[2024-11-10 21:42] LABS: Basophils Percent Auto 0.4 % (0.2-1.2); Eosinophils Absolute Auto 0.1 K/mm3 (0-0.3); Eosinophils Percent Auto 1.7 % (0-4.4); Hematocrit 37.7 % (37.0-47.0); Hemoglobin 11.7 g/dL (12.0-15.0); Immature Granulocyte Absolute 0.02 K/mm3 (0.00-0.031); Immature Granulocyte Percent A 0.2 % (0-0.5); Lymphocytes Absolute Auto 3.31 K/mm3 (0.9-3.2); Lymphocytes Percent Auto 40.8 % (18.3-44.2); Mean Corpuscular Hemoglobin 24.8 pg (26-34); Mean Corpuscular Volume 79.9 fl (80-100); Mean Platelet Volume 10.5 fl (7.4-10.4); Monocytes Absolute Auto 0.8 K/mm3 (0.1-0.6); Monocytes Percent Auto 9.9 % (2.6-8.5); Neutrophils Absolute Auto 3.8 K/mm3 (1.3-6.7); Platelet Count Result 280 k/mm3 (150-375); Red Blood Count 4.72 M/mm3 (4.2-5.4); Red Cell Distribution Width 14.8 % (11.5-14.5); White Blood Count 8.1 K/mm3 (4.5-10.0)
[2024-11-10 21:51] LABS: Alanine Aminotransferase 18 U/L (6-35); Albumin Level 4.3 g/dL (3.5-5.1); Alkaline Phosphatase 56 U/L (38-126); Anion Gap 8 mmol/L (4-12); Aspartate Amino Transferase 27 U/L (14-36); Bilirubin,Total 0.3 mg/dL (0.2-1.3); Blood Urea Nitrogen 14 mg/dL (7-17); Calcium 9.2 mg/dL (8.4-10.2); Carbon Dioxide 24 mmol/L (22-30); Chloride 107 mmol/L (98-107); Estimated CRCL calculation 92 ml/min; Estimated Glomerular Filt Rate > 60; Glucose 90 mg/dL (65-110); Lipase 108 U/L (23-300); Potassium 3.8 mmol/L (3.4-5.0); Sodium 139 mmol/L (137-145)
[2024-11-10 21:56] LABS: INR 0.9; Prothrombin Time 12.4 Seconds (11.1-14.7)
[2024-11-10 21:58] LABS: Partial Thromboplastin Time 23.5 Seconds (22.3-36.8)
[2024-11-10 22:03] LABS: Troponin I < 0.012 ng/mL (0.000-0.034)
--- NOTE | 2024-11-10 22:10 | ED_ITS ---
HPI - Chest Pain General Chief Complaint: Chest Pain Stated Complaint: Chest pain, shortness of breath Time Seen by Provider: 11/10/24 22:04 Source: patient Mode of arrival: ambulatory Limitations: no limitations History of Present Illness HPI narrative: This is a 29-year-old female that presents to the emergency department for chest pain. Reports she has had trouble with this for years. Has had exacerbation since last night. Reports substernal chest discomfort with associated shortness of breath. Denies fever, cough, lower extremity edema. Related Data Home Medications ?Medication ?Instructions ?Recorded ?Confirmed ?Last Taken ?Type No Home Medications 07/31/24 Unknown History Allergies Allergy/AdvReac Type Severity Reaction Status Date / Time aspirin AdvReac Intermediate Difficulty Verified 11/10/24 21:30 Breathing Review of Systems 2 Review of Systems: CONSTITUTIONAL: Denies fever CARDIOVASCULAR: Reports chest pain. Denies edema. RESPIRATORY: Reports dyspnea. All systems reviewed & are unremarkable except as noted in HPI and below PMFSH Past Medical History Medical History Obesity Surgical History Surgical History H/O bilateral breast reduction surgery Family History Family History Mother Hypertension Grandparent Breast cancer in female Social History Social History Social History: Caffeine-coffee Smoking status: Never smoker Second hand tobacco smoke exposure: Yes Alcohol intake: current Alcohol use details: occasional Substance use: current Substance use type: marijuana Other substance usage details: occasional Last use: 10/2021 Do You Feel Safe in your Home?: Yes Lack of Transportation: No Lack of Food: Never True Current Housing: I Have Housing Concerned About Future Housing: No Difficulty Paying Gas/Electric Bills: No Difficulty Paying for Meds: No Currently Unemployed: No Education: High School Diploma/GED Difficulty w/ Childcare or Family Care: No Living arrangements: with family Occupation/Education: occupation Additional occupation/education comments: [employer] Gender identity (if verbalized by the patient): Female Spiritual care concerns: No Exam 2 Narrative: GENERAL: Well-appearing, well-nourished, and in no acute distress. HEAD: Normocephalic, atraumatic. EYES: EOMI. ENT: Nares clear, no rhinorrhea or epistaxis. Mucous membranes moist. Oropharynx without tonsillar hypertrophy exudate or other lesions. NECK: Supple. No adenopathy or masses. CHEST: Clear to auscultation. No respiratory distress. No wheezes rales or rhonchi HEART: Regular rate and rhythm. No murmur heard. Normal peripheral pulses. EXTREMITIES: Normal range of motion. No edema. SKIN: Warm, dry, no rash. NEURO: No focal deficits. Alert and oriented x3. PSYCH: Normal mood and affect Course Course Emergency Course: Patient updated on her workup and agrees with plan of care Vital Signs Vital signs: Vital Signs Temperature 97.6 F 11/10/24 21:26 Pulse Rate 61 11/10/24 21:26 Respiratory Rate 14 11/10/24 21:26 Blood Pressure 144/100 H 11/10/24 21:26 Pulse Oximetry 100 11/10/24 21:26 Oxygen Delivery Room Air 11/10/24 21:26 Temperature 97.6 F 11/10/24 21:39 Pulse Rate 64 11/11/24 00:37 Respiratory Rate 14 11/11/24 00:37 Blood Pressure 122/81 11/11/24 00:03 Pulse Oximetry 100 11/11/24 00:37 Oxygen Delivery Room Air 11/10/24 21:39 MDM - Chest Pain MDM Narrative Medical decision making narrative: Patient presents to the emergency department for chest pain, shortness of breath. She is afebrile and nontoxic appearing. Her vitals are stable. Cbc without leukocytosis. Metabolic panel with mild elevation in creatinine 1.03. EKG without acute ST changes and baseline and 3 hour troponin are negative. Urine without evidence of infection. test is negative. D-dimer elevated, CTA of the chest obtained. No PE or acute cardiopulmonary abnormality. Patient was updated on her workup and agrees with plan of care. She is to follow up primary provider. She was given warnings to return to the ER Differential Diagnosis Differential diagnosis: Likely stable angina, atypical chest pain, costochondritis, chest pain, biliary colic and other (Muscle strain, GERD, PE) Lab Data Attestation: I reviewed the patient's lab results. 11/10/24 21:33 11/10/24 21:33 Labs: Lab Results 11/10/24 11/10/24 11/10/24 Range/Units 21:33 22:39 22:41 WBC 8.1 (4.5-10.0) K/mm3 RBC 4.72 (4.2-5.4) M/mm3 Hgb 11.7 L D (12.0-15.0) g/dL Hct 37.7 (37.0-47.0) % MCV 79.9 L (80-100) fl MCH 24.8 L (26-34) pg MCHC 31.0 L (32-36) g/dl RDW 14.8 H (11.5-14.5) % Plt Count 280 (150-375) k/mm3 MPV 10.5 H (7.4-10.4) fl Immature Gran % (Auto) 0.2 (0-0.5) % Neut % (Auto) 47.0 (45.5-73.1) % Lymph % (Auto) 40.8 (18.3-44.2) % [place] % (Auto) 9.9 H (2.6-8.5) % Eos % (Auto) 1.7 (0-4.4) % Baso % (Auto) 0.4 (0.2-1.2) % Lymph # (Auto) 3.31 H (0.9-3.2) K/mm3 [place] # (Auto) 0.8 H (0.1-0.6) K/mm3 Eos # (Auto) 0.1 (0-0.3) K/mm3 Baso # (Auto) 0.0 (0.0-0.1) K/mm3 Abs Immat Gran (auto) 0.02 (0.00-0.031) K/mm3 Absolute Neuts (auto) 3.8 (1.3-6.7) K/mm3 Absolute Nucleated RBC 0.000 (0.0-0.012) K/mm3 Nucleated RBC % 0.0 (0.0-0.2) % PT 12.4 (11.1-14.7) Seconds INR 0.9 APTT 23.5 (22.3-36.8) Seconds D-Dimer 0.75 H (<0.48) ug/mL Sodium 139 (137-145) mmol/L Potassium 3.8 (3.4-5.0) mmol/L Chloride 107 (98-107) mmol/L Carbon Dioxide 24 (22-30) mmol/L Anion Gap 8 (4-12) mmol/L BUN 14 (7-17) mg/dL Creatinine 1.03 H (0.7-1.0) mg/dL Estim Creat Clear Calc 92 ml/min Estimated GFR > 60 (59 - ) Glucose 90 (65-110) mg/dL Calcium 9.2 (8.4-10.2) mg/dL Total Bilirubin 0.3 (0.2-1.3) mg/dL AST 27 (14-36) U/L ALT 18 (6-35) U/L Alkaline Phosphatase 56 (38-126) U/L Troponin I < 0.012 (0.000-0.034) ng/mL Total Protein 8.0 (6.3-8.2) g/dL Albumin 4.3 (3.5-5.1) g/dL Lipase 108 (23-300) U/L Urine Color Yellow (Yellow) Urine Appearance Clear (Clear) Urine pH 7.0 (5.0-9.0) Ur Specific [place] 1.012 (1.001-1.035) Urine Protein Negative (Negative) mg/dL Urine Glucose (UA) Negative (Negative) mg/dL Urine Ketones Negative (Negative) mg/dL Ur Blood (Man) Negative (Negative) Urine Nitrate Negative (Negative) Urine Bilirubin Negative (Negative) Urine Urobilinogen 0.2 (<2.0) mg/dL Add Ur Microanalysis Reviewed Leukocyte Esterase Rfl 2+ H (Negative) DAMON/UL Urine RBC 0-2 (0-2) /hpf Urine WBC 0-5 (0-3) /hpf Ur Squamous Epith Cells None seen (Few) /hpf Urine Bacteria None seen /hpf Urine Casts 0-2 POC Urine HCG, Qual Negative (Negative) 11/11/24 Range/Units 00:20 WBC (4.5-10.0) K/mm3 RBC (4.2-5.4) M/mm3 Hgb (12.0-15.0) g/dL Hct (37.0-47.0) % MCV (80-100) fl MCH (26-34) pg MCHC (32-36) g/dl RDW (11.5-14.5) % Plt Count (150-375) k/mm3 MPV (7.4-10.4) fl Immature Gran % (Auto) (0-0.5) % Neut % (Auto) (45.5-73.1) % Lymph % (Auto) (18.3-44.2) % [place] % (Auto) (2.6-8.5) % Eos % (Auto) (0-4.4) % Baso % (Auto) (0.2-1.2) % Lymph # (Auto) (0.9-3.2) K/mm3 [place] # (Auto) (0.1-0.6) K/mm3 Eos # (Auto) (0-0.3) K/mm3 Baso # (Auto) (0.0-0.1) K/mm3 Abs Immat Gran (auto) (0.00-0.031) K/mm3 Absolute Neuts (auto) (1.3-6.7) K/mm3 Absolute Nucleated RBC (0.0-0.012) K/mm3 Nucleated RBC % (0.0-0.2) % PT (11.1-14.7) Seconds INR APTT (22.3-36.8) Seconds D-Dimer (<0.48) ug/mL Sodium (137-145) mmol/L Potassium (3.4-5.0) mmol/L Chloride (98-107) mmol/L Carbon Dioxide (22-30) mmol/L Anion Gap (4-12) mmol/L BUN (7-17) mg/dL Creatinine (0.7-1.0) mg/dL Estim Creat Clear Calc ml/min Estimated GFR (59 - ) Glucose (65-110) mg/dL Calcium (8.4-10.2) mg/dL Total Bilirubin (0.2-1.3) mg/dL AST (14-36) U/L ALT (6-35) U/L Alkaline Phosphatase (38-126) U/L Troponin I < 0.012 (0.000-0.034) ng/mL Total Protein (6.3-8.2) g/dL Albumin (3.5-5.1) g/dL Lipase (23-300) U/L Urine Color (Yellow) Urine Appearance (Clear) Urine pH (5.0-9.0) Ur Specific [place] (1.001-1.035) Urine Protein (Negative) mg/dL Urine Glucose (UA) (Negative) mg/dL Urine Ketones (Negative) mg/dL Ur Blood (Man) (Negative) Urine Nitrate (Negative) Urine Bilirubin (Negative) Urine Urobilinogen (<2.0) mg/dL Add Ur Microanalysis Leukocyte Esterase Rfl (Negative) DAMON/UL Urine RBC (0-2) /hpf Urine WBC (0-3) /hpf Ur Squamous Epith Cells (Few) /hpf Urine Bacteria /hpf Urine Casts POC Urine HCG, Qual (Negative) Imaging Data Radiologist's impression: ITS Impressions Chest X-Ray 11/10/24 21:55 IMPRESSION: No focal infiltrate or effusion. Chest CTA 11/10/24 23:43 IMPRESSION: No pulmonary embolus. No thoracic aortic dissection. The lungs are clear. Small hiatal hernia. ECG Data EKG #1: ECG completion date: 11/10/24 EKG Interpretation: normal rate, sinus rhythm, no ST changes and normal QT Critical Care Time Critical Care Time Critical Care Time: No Discharge Plan Discharge Clinical Impression: Chest pain Qualifiers: Chest pain type: unspecified Qualified Code(s): R07.9 - Chest pain, unspecified Patient Disposition: Home Condition: Stable Instructions: Chest Pain (ED) Additional Instructions: Return to the Emergency Department if you experience fever, worsening chest pain, shortness of breath, or any other symptoms that are concerning to you Follow up with primary care doctor Patient Language: [place]an Prescriptions: No Action No Home Medications Follow-up/Referrals: Sundar Estevez MD [Physician] - PHYSICIAN,LIVER TRIMMER [Primary Care Provider] - Quality HEART score for chest pain patients History: slightly suspicious ECG: normal Age: < or = to 45 years Risk factors: 1 or 2 risk factors Troponin: < or = to 1x normal limit Heart score: 1
--- OUTSIDE RECORDS SUMMARY | 2024-11-10 22:10 | XMS_ITS | Clinical Summary ---
Author Organization [facility] Address [address] [place] [address] Care Team Providers Care Wood Calker Name Role Phone Unavailable Primary Care Provider Unavailabl e Source Comments [facility],non-owned Affiliates and Associated Physician Practices is amultiple site organization consisting of ambulatory clinics and hospital sitesin [place], [place], [place] and [place]. This disclosure is being madepursuant to the Care Everywhere program and may not contain all informatio navailable regarding this patient. 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
--- OUTSIDE RECORDS SUMMARY | 2024-11-10 22:10 | XMS_ITS | Clinical Summary ---
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 Gender Identity Not on file Sexual Orientation [...] HIGH RISK HPV Routine 08/09/2023 4:26 PM BOOTH CLEANER Well woman exam with routine gynecological exam HEPATITIS PANEL, ACUTE Routine 08/05/2022 2:42 PM BOOTH CLEANER Well woman exam with routine gynecological exam Screening for STD (sexually transmitted disease) from Last 3 Months or Most Recently Relevant to Health Maintenance Results * Pap with reflex to High Risk HPV and Genotyping (Cytology Component) (08/09/2023 4:26 PM BOOTH CLEANER) Thin prep (Pap test) 08/09/2023 4:26 PM BOOTH CLEANER 08/10/2023 5:53 PM BOOTH CLEANER Narrative PATHOLOGY [facility] - 08/17/2023 8:20 AM BOOTH CLEANER EPIC results best viewed via link to PDF [facility] [place] [address] Note to Patients: This report may contain [...] Gender: F : 1995 (Age: 28) Address: [address] [place] [address] Hospital #: [id number] Service: DEFAULT Location: Patient Type: [facility] SPECIMEN Taken: 08/09/2023 Received: 08/10/2023 Accessioned: [...] clinical information and biopsy results as indicated. [facility] Clinical Laboratory Improvement Amendments (CLIA) mandate that cytologic and histologic results be correlated for laboratory quality assurance supervisor trim & improvement standards. FOR ALL HIGH-GRADE CASES [...] determined by the Surgical Pathology Department at [facility] as part of an ongoing quality controller program and in compliance with federally mandated [...] determined by the Surgical Pathology Department of [facility]. It has not been cleared or approved by the U. S. Food and Drug Administration. Toma Peters CNM LAB CYTOLOGY ORDERA BLES Final Result PATHOLOGY [facility] * Hepatitis panel, acute (08/05/2022 2:42 PM BOOTH CLEANER) Hep A IgM Nonreactive Nonreactive CASSANDRA Comment: [...] Nonreactive Nonreactive CASSANDRA Blood 08/05/2022 2:42 PM BOOTH CLEANER 08/05/2022 6:43 PM BOOTH CLEANER us Morena Heredia NP LAB MICROBIOLOGY - GENERAL ORDER DEIDRE Final Result Performing Organization Address [facility] Co de Phone Number CASSANDRA [address] [facility] Department of Laboratories [place], [place] [id number] from Last 3 Months or Most Recently Relevant to Health Maintenance Insurance [facility] CHOICE PLUS IDPA Care Teams Frame Operator Relationship Specialty Start Date End Date No, Physician PCP - General 08/05/22
--- OUTSIDE RECORDS SUMMARY | 2024-11-10 22:10 | XMS_ITS | Referral Summary ---
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 Gender Identity Not on file Sexual Orientation [...] HIGH RISK HPV Routine 08/09/2023 4:26 PM CLAIMS TECHNICIAN Well woman exam with routine gynecological exam HEPATITIS PANEL, ACUTE Routine 08/05/2022 2:42 PM CLAIMS TECHNICIAN Well woman exam with routine gynecological exam Screening for STD (sexually transmitted disease) from Last 3 Months or Most Recently Relevant to Health Maintenance Results * Pap with reflex to High Risk HPV and Genotyping (Cytology Component) (08/09/2023 4:26 PM CLAIMS TECHNICIAN) Thin prep (Pap test) 08/09/2023 4:26 PM CLAIMS TECHNICIAN 08/10/2023 5:53 PM CLAIMS TECHNICIAN Narrative PATHOLOGY [facility] - 08/17/2023 8:20 AM CLAIMS TECHNICIAN EPIC results best viewed via link to PDF [facility] [place] [address] Note to Patients: This report may contain [...] Gender: F : 1995 (Age: 28) Address: [address] [place] [phone] [facility] #: [id number] Service: DEFAULT Location: Patient Type: [facility] SPECIMEN Taken: 08/09/2023 Received: 08/10/2023 Accessioned: [...] clinical information and biopsy results as indicated. [facility] Clinical Laboratory Improvement Amendments (CLIA) mandate that cytologic and histologic results be correlated for laboratory senior quality manager & improvement standards. FOR ALL HIGH-GRADE CASES [...] determined by the Surgical Pathology Department at [facility] as part of an ongoing manager of quality program and in compliance with federally mandated [...] determined by the Surgical Pathology Department of [facility]. It has not been cleared or approved by the U. S. Food and Drug Administration. Toma Peters CNM LAB CYTOLOGY ORDERA BLES Final Result PATHOLOGY [facility] * Hepatitis panel, acute (08/05/2022 2:42 PM CLAIMS TECHNICIAN) Hep A IgM Nonreactive Nonreactive CASSANDRA Comment: [...] Nonreactive Nonreactive CASSANDRA Blood 08/05/2022 2:42 PM CLAIMS TECHNICIAN 08/05/2022 6:43 PM CLAIMS TECHNICIAN Morena Heredia NP LAB MICROBIOLOGY - GENERAL ORDER DEIDRE Final Result CASSANDRA [address] [facility] Department [place] [address] from Last 3 Months or Most Recently Relevant to Health Maintenance Insurance [facility] CHOICE PLUS IDPA Care Teams Kiln Tester Relationship Specialty Start Date End Date No, Physician PCP - General 08/05/22
--- OUTSIDE RECORDS SUMMARY | 2024-11-10 22:10 | XMS_ITS | Clinical Summary ---
Author Organization [facility] Address [address] [place] [address] Care Team Providers Care Sterilizer Operator Name Role Phone Kolby Prado MD Primary Care Provider [phone] Source Comments PLEASE NOTE, if this patient [...] of Treatment Not on file Care Teams Sterilizer Operator Relationship Specialty Start Date End Date Kolby Prado MD [address] [place] [address] PCP - General Infectious Diseases 03/06/20
[2024-11-10 22:19] LABS: D Dimer 0.75 ug/mL (<0.48)
[2024-11-10] MEDS: diazePAM (*CRX) 5 MG TABLET PO (22:30)
[2024-11-10] MEDS: SODIUM CHLORIDE 0.9% IV 1,000 ML 999 ML IV CONT (22:30)
[2024-11-10] MEDS: ACETAMINOPHEN 500 MG TABLET 1000 MG PO (22:30)
[2024-11-10 22:42] LABS: BEDSIDEPREGUCG Negative (Negative)
--- NOTE | 2024-11-10 22:45 | PC.NURSE ---
Patient being taken to CT at this time via stretcher.
[2024-11-10 23:03] LABS: Add Urine Microscopic? YES; Appearance Urine Clear (Clear); Bacteria Urine None Seen /hpf; Bilirubin Urine Negative (Negative); Blood Urine Negative (Negative); Color Urine Yellow (Yellow); Glucose Urine UA Negative (Negative); Ketones Urine Negative (Negative); Leukocyte Esterase Ur 2+ LEU/UL (Negative); Need Manual Microscopic Reviewed; Nitrate Urine Negative (Negative); Non Pathogenic Casts 0-2; Protein Urine Negative (Negative); RBC Urine 0-2 /hpf (0-2); Specific Grav Ur 1.012 (1.001-1.035); Squamous Epithelial Cell Urine None Seen /hpf (Few); Urobilinogen Urine 0.2 mg/dL (<2.0); WBC Urine 0-5 /hpf (0-3)
[2024-11-11] VITALS: PULSE 58; RESP 16; O2SAT 100
[2024-11-11 00:03] VITALS: BP 122/81; PULSE 61; RESP 17; O2SAT 100
--- NOTE | 2024-11-11 00:13 | ECG_ITS ---
Test Date: 2024-11-11 00:17:08 Measurements Intervals [place] Rate: 62 P: 38 [place]: 180 QRS: 59 QRSD: 75 T: 40 QT: 374 QTc: 381 Interpretive Statements SINUS RHYTHM Compared to ECG 11/10/2024 21:28:50 Sinus arrhythmia no longer present Electronically Signed On 11-11-2024 17:11:35 CDT by Marquez Varghese M.D.
[2024-11-11 00:22] VITALS: PULSE 73; RESP 15; O2SAT 100
[2024-11-11 00:37] VITALS: PULSE 64; RESP 14; O2SAT 100
[2024-11-11 00:48] LABS: Troponin I < 0.012 ng/mL (0.000-0.034)
[2024-11-11 01:08] VITALS: BP 114/76; PULSE 78; RESP 16; O2SAT 100
== END 2024-11-11 01:10 | disposition home or self-care (01) ==
PROVIDERS: Emergency Medicine; Emergency Provider Physician Assistant
DX: R07.2 Precordial pain (principal); E66.9 Obesity, unspecified; Z68.35 Body mass index [BMI] 35.0-35.9, adult; K44.9 Diaphragmatic hernia without obstruction or gangrene
CPT/HCPCS: 36415; 71046; 71275; 80053; 81001; 81025; 83690; 84484; 85025; 85380; 85610; 85730; 87086; 93005; 96360; 99284; A9270; J7030; Q9967